=== PATIENT | male | born 1980 | race Caucasian/White ===

== ENCOUNTER → 2016-04-08 | Outpatient (CLI) | payer OTHER ==
[~2016-04-08] MED LIST: CLC100 PO; EFF75 PO; FLX10 PO; LAMO200T38 PO; LEVO50TA6 PO; LINA1CAP PO; LURA1TAB3 PO; LXP10 PO; MDRDP21 PO; METH10CO11 PO; METH40TA PO; METO50TA16 PO; NRN300 PO; NRN600 PO; ONDA-63 PO; SERT1TAB72 PO; TRAZ100T29 PO
[2016-04-08 14:18] LABS: BLOOD UREA NITROGEN 13 mg/dl (7-18)
--- NOTE | 2016-04-16 10:42 | CODING QUERY NO DIAGNOSIS ---
: 1980 TREATMENT RENDERED WITHOUT A DIAGNOSIS To promote full compliance with coding requirements relating to patient care, physician participation is requested in all cases of wellness coach uncertainty. Please assist us with providing a diagnosis/symptom for the test(s) below: A diagnosis/symptom was not documented on your Order. A valid diagnosis/symptom is required to bill all insurances. Please remember that we are unable to code a diagnosis of rule out, probable, possible, questionable, or suspected. Tests that require a diagnosis: * BLOOD UREA NITROGEN DOS: 04/08/16 DIAGNOSIS: * CREATININE DOS: 04/08/16 DIAGNOSIS: Provider Signature: Date: Thank you Teagan Galicia Health Information Management Once completed, please kindly fax back to [phone] For questions please call [phone]
== END | disposition home or self-care (01) ==
LOC: C.LABBC 11:29
PROVIDERS: ATTEND Psychiatry & Neurology Neurology
DX: G31.84 Mild cognitive impairment of uncertain or unknown etiology (principal); I10 Essential (primary) hypertension; N28.9 Disorder of kidney and ureter, unspecified; N04.9 Nephrotic syndrome with unspecified morphologic changes

== ENCOUNTER → 2016-04-09 | Outpatient (CLI) | payer OTHER ==
[~2016-04-09] MED LIST changes: +GADAVIST IV PRN
--- NOTE | 2016-04-09 12:44 | DIAGNOSTIC IMAGING REPORT ---
MRI OF THE BRAIN WITHOUT AND WITH IV CONTRAST CLINICAL HISTORY: MILD NEUROCOGNITIVE DISORDER COMPARISON STUDY: Head CT dated 06/19/2014 TECHNIQUE: MRI of the brain was performed from the vertex to the skull base utilizing various T1 and T2 weighted sequences. Following the IV administration of 9 mL of Gadavist contrast, additional enhanced images were obtained. FINDINGS: Sagittal T1, axial diffusion, proton density and T2 weighted axial, coronal FLAIR, and pre and post axial T1-weighted images were acquired. These were supplemented with post gadolinium coronal T1 weighted images. No intra or extra-axial mass lesions are visualized. Axial diffusion-weighted images reveal no evidence of acute or subacute infarction. There is no evidence of ventricular dilatation. Proton density T2-weighted and FLAIR images reveal no significant intraparenchymal signal abnormalities. There are no abnormal flow voids. There is no evidence of pathologic enhancement. There is mild to moderate mucosal thickening involving the left maxillary sinus. The study is minimally compromised secondary to summation motion IMPRESSION: Mild to moderate mucosal thickening within the left maxillary sinus. Otherwise normal MRI of the brain Electronically signed by: Tc Hardy M.D. 04/09/2016 12:42 PM Dictated Date/Time: 04/09/2016 12:39 PM
== END | disposition home or self-care (01) ==
LOC: C.MRIBC 04-08 10:59
PROVIDERS: ATTEND Psychiatry & Neurology Neurology
DX: G31.84 Mild cognitive impairment of uncertain or unknown etiology (principal); J34.89 Other specified disorders of nose and nasal sinuses

== ENCOUNTER → 2016-08-11 | Outpatient (CLI) | payer OTHER ==
[~2016-08-11] MED LIST changes: -GADAVIST IV PRN; +LACTOSE PO
[2016-08-11 15:45] LABS: ALB/GLOB RATIO 1.1 (0.9-2); ALKALINE PHOSPHATASE 80 U/L (45-117); ALT/SGPT 23 U/L (12-78); AST/SGOT 13 U/L (15-37); BLOOD UREA NITROGEN 10 mg/dl (7-18); BUN/CREATININE RATIO 8.6 (10-20); CALCIUM 9.4 mg/dl (8.5-10.1); CARBON DIOXIDE 25 mmol/L (21-32); CHLORIDE 103 mmol/L (98-107); GLUCOSE 85 mg/dl (70-99); GLUCOSE,FASTING 85 mg/dl (70-99); SODIUM 138 mmol/L (136-145)
[2016-08-11 16:05] LABS: CHOLESTEROL 220 mg/dl (0-200); CHOLESTEROL/HDL RATIO 4.2; HDL CHOLESTEROL 52 mg/dl; LDL CHOLESTEROL CALCULATED 144 mg/dl; TRIGLYCERIDES 120 mg/dl (0-150); VERY LOW DENSITY LIPOPROT CALC 24 mg/dl
== END | disposition home or self-care (01) ==
LOC: C.LAB 12:45
PROVIDERS: ATTEND Psychiatry & Neurology Psychiatry
DX: F31.89 Other bipolar disorder (principal)

== ENCOUNTER 2016-08-23 10:27 | Inpatient (IN) | payer OTHER ==
[~2016-08-23] VITALS: Ht 170.2 cm; Wt 87.7 kg
[~2016-08-23 10:27] MED LIST changes: -CLC100 PO; -FLX10 PO; -LACTOSE PO; -LEVO50TA6 PO; -LINA1CAP PO; -LXP10 PO; -MDRDP21 PO; -METH10CO11 PO; -NRN300 PO; -ONDA-63 PO; -SERT1TAB72 PO
[2016-08-23] MEDS ORDERED: LXP10 PO (10:47)
[2016-08-23] MEDS ORDERED: MDRDP21 PO (10:48)
[2016-08-23] MEDS ORDERED: LEVO50TA6 PO (10:48)
[2016-08-23] MEDS ORDERED: ONDA-63 PO (10:48)
[2016-08-23] MEDS ORDERED: HYDROmorphone INJ 2 MG/ML SYR/VIAL IV STA ×2 (11:00→13:36)
--- NOTE | 2016-08-23 11:01 | EMERGENCY ROOM VISIT NOTE ---
History Report prepared by Mirtha: Radha Mackey Under the Supervision of: Dr. Estrella Romero D.O. First contact with patient: 10:47 Chief Complaint: BACK PAIN Stated Complaint: BACK PAIN History of Present Illness The patient is a 36 year old male who presents to the Emergency Room with complaints of worsening lower back pain beginning 2 weeks prior to arrival. The patient has a history of chronic lower back pain and is treated by pain management. He did call pain management 2 weeks ago when the pain worsened and was scheduled for cortisol shots however due to insurance covering troubles he has not yet received the shots. The patient states that 4 days ago he turned and significantly worsened the pain to be a 10/10 in severity. He has loss strength in both of his legs and is experiencing trouble controlling his bladder. The patient also notes pain to his left testicle. He did start steroids on Tuesday and has not experienced relief of his symptoms, he notes the symptoms continue to worsen. In March 2012 the patient had a MRI of his back done. A broad based disc protrusion at L4-L5 with right greater than left was shown. Left side protrusion at L5-S1. Both of these were compared to MRI from September 2009. 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 The patient also notes pain to his left testicle. Review of Systems See HPI for pertinent positives & negatives. A total of 10 systems reviewed and were otherwise negative. Past Medical & Surgical Medical Problems: (1) Asthma (2) Drug abuse (3) Endocarditis (4) Hernia (5) Hypertension (6) IV drug abuse (7) Line sepsis (8) Mediastinitis (9) Migraine (10) Mitral valve regurgitation (11) Nephrotic syndrome (12) Psoriasis (13) Sternoclavicular separation Surgical Problems: (1) History of open heart surgery Family History Diabetes mellitus FHx: cancer FHx: heart disease Hypertension Kidney disease Kidney stones Seizures Social History Smoking Status: Never Smoker Alcohol Use: none Drug Use: heroin Marital Status: in relationship Housing Status: lives with family Occupation Status: employed Current/Historical Medications Scheduled Escitalopram Oxalate (Escitalopram Oxalate), 10 MG PO DAILY Gabapentin (Gabapentin), 600 MG PO TID Lamotrigine (Lamictal), 200 MG PO DAILY Levothyroxine Sodium (Levothyroxine Sodium), 50 MCG PO DAILY Methadone Hcl (Methadose), 92 MG PO DAILY Methylprednisolone (Methylprednisolone Dose P), 1 DOSE PO DIRECTED Metoprolol Tartrate (Lopressor) (Lopressor), 50 MG PO BID Ondansetron (Ondansetron HCl), 8 MG PO DAILY Miscellaneous Medications Lurasidone Hcl (Latuda), 60 MG PO Allergies Coded Allergies: POLLEN (Verified Allergy, Mild, 08/13/16) Bupropion (Verified Adverse Reaction, Unknown, seizures, 08/13/16) Varenicline (Verified Adverse Reaction, Unknown, SEIZURE, 08/13/16) Physical Exam Vital Signs Date Time Temp Pulse Resp B/P Pulse Ox O2 Delivery O2 Flow Rate FiO2 08/23/16 15:32 98 Room Air 08/23/16 14:29 80 18 135/84 98 Room Air 08/23/16 13:35 76 18 142/92 98 Room Air 08/23/16 12:04 77 16 113/88 97 Room Air 08/23/16 10:36 37.2 84 18 160/110 97 Room Air Physical Exam HEENT: Head - normocephalic and atraumatic Pupils are equal, round, and reactive to light. Extraocular eye muscles are intact, and sclera are anicteric. Nose - moist nasal mucosa without discharge. Mouth - moist buccal mucosa. Oropharynx is nonerythematous and there is no tonsillar exudate or edema noted. Neck: Supple; no JVD, nuchal rigidity, cervical lymphadenopathy. Heart: Tachycardic rate and rhythm. There is a normal S1 and S2 with no murmurs , clicks, or gallops appreciated. Lungs: Clear to auscultation bilaterally with no wheezes, rales, or rhonchi. Abdomen: Soft, completely nontender, nondistended, with good bowel sounds. There are no palpable pulsatile masses or hepatosplenomegaly. There is no guarding, rigidity, or rebound noted. Back: Reproducible to palpation L3-S1, pain over left piriformis muscle, pain through left buttock across left anterior thigh and left testicle. Rectal: Normal tone. Extremities: No evidence of cyanosis, clubbing, or edema. There are easily palpable peripheral pulses. Skin: diaphoretic, warm with good turgor and no rashes. Medical Decision & Procedures ER Provider Diagnostic Interpretation: MRI results as stated below per my review and radiologist interpretation: LUMBAR SPINE MRI HISTORY: Back pain. eval for acute disc herniation with nerve root impingement TECHNIQUE: Multiplanar multisequence MRI of the lumbar spine was performed without the use of contrast. COMPARISON: Lumbar spine MRI 03/14/2012. FINDINGS: For the purpose of the report the L5-S1 disc space will be located on axial image 23 of 25. No fracture or subluxation. Mild disc space narrowing and disc desiccation at L4-L5 and L5-S1, unchanged. The conus terminates at the L2 level. Paraspinal soft tissues are unremarkable. L1-L2: No significant central canal or neural foraminal narrowing. L2-L3: No significant central canal or neural foraminal narrowing. L3-L4: No significant central canal or neural foraminal narrowing. L4-L5: Focal central/right paracentral disc protrusion which is not significantly changed. This abuts but does not displace the transiting right L5 nerve root. There is minimal central canal narrowing. No neural foraminal narrowing. L5-S1: Small left paracentral broadbase disc protrusion which abuts but does not displace the transiting left S1 nerve root. This is similar to the prior study. No significant central canal or neural foraminal narrowing. IMPRESSION: 1. No significant change compared to the prior study. 2. No fracture or subluxation. 3. Small disc protrusions at L4-5 and L5-S1 as described above. Electronically signed by: Pravin Mcelroy M.D. 08/23/2016 1:49 PM Dictated Date/Time: 08/23/2016 1:41 PM Laboratory Results 08/23/16 11:50 Red Blood Count 5.65, Mean Corpuscular Volume 81.9, Mean Corpuscular Hemoglobin 29.6, Mean Corpuscular Hemoglobin Concent 36.1, Mean Platelet Volume 9.2, Neutrophils (%) (Auto) 74.3, Lymphocytes (%) (Auto) 16.2, Monocytes (%) (Auto) 8.9, Eosinophils (%) (Auto) 0.2, Basophils (%) (Auto) 0.1, Neutrophils # (Auto) 8.56, Lymphocytes # (Auto) 1.87, Monocytes # (Auto) 1.02, Eosinophils # (Auto) 0.02, Basophils # (Auto) 0.01 08/23/16 11:50 Test 08/23/16 11:50 White Blood Count 11.51 K/uL (4.8-10.8) Red Blood Count 5.65 M/uL (4.7-6.1) Hemoglobin 16.7 g/dL (14.0-18.0) Hematocrit 46.3 % (42-52) Mean Corpuscular Volume 81.9 fL (80-100) Mean Corpuscular Hemoglobin 29.6 pg (25-34) Mean Corpuscular Hemoglobin Concent 36.1 g/dl (32-36) Platelet Count 228 K/uL (130-400) Mean Platelet Volume 9.2 fL (7.4-10.4) Neutrophils (%) (Auto) 74.3 % Lymphocytes (%) (Auto) 16.2 % Monocytes (%) (Auto) 8.9 % Eosinophils (%) (Auto) 0.2 % Basophils (%) (Auto) 0.1 % Neutrophils # (Auto) 8.56 K/uL (1.4-6.5) Lymphocytes # (Auto) 1.87 K/uL (1.2-3.4) Monocytes # (Auto) 1.02 K/uL (0.11-0.59) Eosinophils # (Auto) 0.02 K/uL (0-0.5) Basophils # (Auto) 0.01 K/uL (0-0.2) RDW Standard Deviation 40.4 fL (36.4-46.3) RDW Coefficient of Variation 13.5 % (11.5-14.5) Immature Granulocyte % (Auto) 0.3 % Immature Granulocyte # (Auto) 0.03 K/uL (0.00-0.02) Erythrocyte Sedimentation Rate 9 mm/hr (0-14) Anion Gap 8.0 mmol/L (3-11) Est Creatinine Clear Calc Drug Dose 89.1 ml/min Estimated GFR () 89.0 Estimated GFR (Non- 76.8 BUN/Creatinine Ratio 13.1 (10-20) Calcium Level 9.0 mg/dl (8.5-10.1) C-Reactive Protein 1.02 mg/dl (0-0.29) Laboratory results per my review. Medications Administered Medications (Trade) Dose Ordered Sig/[facility] Route Start Time Stop Time Status Last Admin Dose Admin Hydromorphone HCl (Dilaudid Inj) 2 mg NOW STAT IV 08/23/16 11:00 08/23/16 11:11 DC 08/23/16 12:01 2 MG Hydromorphone HCl (Dilaudid Inj) 2 mg NOW STAT IV 08/23/16 13:36 08/23/16 13:38 DC 08/23/16 13:59 2 MG Methylprednisolone Sodium Succinate (Solu-Medrol IV) 125 mg NOW STAT IV 08/23/16 14:44 08/23/16 14:45 DC 08/23/16 15:15 125 MG Procedure Dilaudid Inj 2 mg IV, Dilaudid Inj 2 mg IV, Solu-Medrol IV 125 mg IV. ED Course 1051: Past medical records reviewed. The patient was evaluated in room B4. A complete history and physical exam was performed. An IV lock was initiated and labs were drawn as above 1100: Dilaudid Inj 2 mg IV. 1319: The patient is at MRI. 1334: The patient is back from MRI. He is requesting more pain medication. 1336: Dilaudid Inj 2 mg IV. 1423: The patient is still in moderate pain and is unable to walk due to weakness. I reviewed the results of the MRI and laboratory studies with the patient. 1441: Discussed the patient's case with Dr. Mitch SALAMANCA. The patient will be evaluated for further management. 1444: Solu-Medrol IV 125 mg IV. Medical Decision The patient is a 36 year old male who presents to the ED with back pain. Differential diagnosis includes colitis equina syndrome, sciatica, acute disc herniated, lumbar root nerve compression, lumbar radiculopathy. Lab findings include: white blood cell count of 11.5, stable H&H, sed rate of 9 , c reactive protein 1.02, normal renal function and glucose. The patient describes a long-standing history of low back pain. He has had previous episodes of intractable back pain which required admission to the hospital for IV steroid therapy. The patient is unsure whether or not he has ever been seen by one of the spinal surgeons here at the hospital. Despite receiving multiple doses of IV pain medication, the patient is still quite uncomfortable and has difficulty with walking due to weakness in the left lower extremity. I discussed the case with the [facility] Hospitalist and they will evaluate for further management. Consults Time Called: 1440 Consulting Physician: Dr. Meyer - WILMA Returned Call: [phone] Discussed the patient's case. The patient will be evaluated for further management. Impression Primary Impression: Lumbar radiculopathy Scribe Attestation The scribe's documentation has been prepared under my direction and personally reviewed by me in its entirety. I confirm that the note above accurately reflects all work, treatment, procedures, and medical decision making performed by me. Departure Information Dispostion Home / Self-Care Referrals Tao Verma M.D. (PCP)
[2016-08-23 12:22] LABS: BASO % 0.1 %; BASO ABS # 0.01 K/uL (0-0.2); COMPLETE YES; EOS % 0.2 %; HEMATOCRIT 46.3 % (42-52); IG% 0.3 %; LYMPH % 16.2 %; LYMPH ABS # 1.87 K/uL (1.2-3.4); MEAN CELL VOLUME 81.9 fL (80-100); MEAN CORPUSCULAR HEMOGLOBIN 29.6 pg (25-34); MEAN CORPUSCULAR HGB CONC 36.1 g/dl (32-36); MEAN PLATELET VOLUME 9.2 fL (7.4-10.4); MONO % 8.9 %; NEUT % 74.3 %; PLATELET COUNT 228 K/uL (130-400); RED BLOOD COUNT 5.65 M/uL (4.7-6.1); WHITE BLOOD COUNT 11.51 K/uL (4.8-10.8)
[2016-08-23 12:52] LABS: BUN/CREATININE RATIO 13.1 (10-20); C-REACTIVE PROTEIN 1.02 mg/dl (0-0.29); CREATININE 1.2 mg/dl (0.60-1.40); POTASSIUM 3.6 mmol/L (3.5-5.1)
--- NOTE | 2016-08-23 13:50 | DIAGNOSTIC IMAGING REPORT ---
LUMBAR SPINE MRI HISTORY: Back pain. eval for acute disc herniation with nerve root impingement TECHNIQUE: Multiplanar multisequence MRI of the lumbar spine was performed without the use of contrast. COMPARISON: Lumbar spine MRI 03/14/2012. FINDINGS: For the purpose of the report the L5-S1 disc space will be located on axial image 23 of 25. No fracture or subluxation. Mild disc space narrowing and disc desiccation at L4-L5 and L5-S1, unchanged. The conus terminates at the L2 level. Paraspinal soft tissues are unremarkable. L1-L2: No significant central canal or neural foraminal narrowing. L2-L3: No significant central canal or neural foraminal narrowing. L3-L4: No significant central canal or neural foraminal narrowing. L4-L5: Focal central/right paracentral disc protrusion which is not significantly changed. This abuts but does not displace the transiting right L5 nerve root. There is minimal central canal narrowing. No neural foraminal narrowing. L5-S1: Small left paracentral broadbase disc protrusion which abuts but does not displace the transiting left S1 nerve root. This is similar to the prior study. No significant central canal or neural foraminal narrowing. IMPRESSION: 1. No significant change compared to the prior study. 2. No fracture or subluxation. 3. Small disc protrusions at L4-5 and L5-S1 as described above. Electronically signed by: Pravin Mcelroy M.D. 08/23/2016 1:49 PM Dictated Date/Time: 08/23/2016 1:41 PM
[2016-08-23] MEDS ORDERED: METHYLPREDNISOLONE 125 MG VIAL IV STA (14:44)
[2016-08-23 15:32] VITALS: O2SAT 98; Ht 170.2 cm; Wt 87.7 kg
[2016-08-23] MEDS ORDERED: ACETAMINOPHEN 325 MG TAB PO PRN (15:45)
[2016-08-23] MEDS ORDERED: MAGNESIUM HYDROXIDE SUSP 30 ML UDC PO PRN (15:45)
[2016-08-23] MEDS ORDERED: ONDANSETRON INJ 2 MG/ML 2 ML VIAL IV PRN (15:45)
[2016-08-23] MEDS ORDERED: HYDROmorphone INJ 0.5 MG/0.5 ML SYR ONE (16:00)
[2016-08-23] MEDS ORDERED: HYDROmorphone INJ 1 MG/ML SYR IV PRN (16:00)
--- NOTE | 2016-08-23 16:29 | History and Physical ---
History & Physical Date & Time of Service: August 23, 2016 at 15:52 Chief Complaint: Back Pain Primary Care Physician: Tao Verma M.D. History of Present Illness Source: patient 36 y/o M c/o back pain. Pt has had back pain since he was around 19 y/o. Over the last month, it has gotten progressively worse. He [facility] his pain management [facility] about 2 weeks ago. The plan at that time was to have a cortisol injection, however pt's insurance denied this request. PM office has been working to appeal this, however he has not been able to receive the injection due to insurance denial. Pt states his pain was not improving and on AM he rolled over in bed which caused his pain to become instantly more severe. It is more severe than it has ever been. He has also developed L LE weakness and numbness, both of which are new to him. He has had issues walking due to this. He has had no bowel or bladder incontinence, but he does note about 15-20 seconds of urine "dribbling" after he feels he has finished voiding, also new for him. Pt called his PCP on Tuesday after his pain continued and was given a steroid dose pack, which he started on Tuesday. He is on day 3 of this and no relief. Pt states that he did speak to a surgeon at some point at [facility], however a fusion was decided against at that time due to young age and minimal sx. Pt has had flares of his back pain in the past and states that IV steroids have helped after a few days. He does feel that his methadone has helped his back pain in the past. He had some relief with dilaudid, but not much in the ED. Pt has had decreased PO intake due to pain, but no intolerance of PO. Pt denies fever, SOB, chest pain, abd pain, n/v/c/d, LE pain or swelling. ROS as noted above, otherwise neg. Rectal exam from ED physician was neg Past Medical/Surgical History Medical Problems: (1) Asthma Status: Chronic (2) Drug abuse Status: Chronic (3) Endocarditis Status: Resolved (4) Hernia Status: Resolved (5) Hypertension Status: Chronic (6) IV drug abuse Status: Chronic (7) Line sepsis Permanent Comment: Candidemia due to PICC Status: Resolved (8) Mediastinitis Status: Resolved (9) Migraine Status: Chronic (10) Mitral valve regurgitation Status: Chronic (11) Nephrotic syndrome Status: Chronic (12) Psoriasis Status: Chronic (13) Sternoclavicular separation Status: Chronic Surgical Problems: (1) History of open heart surgery Permanent Comment: mitral valve repair [facility] Status: Resolved Mood disorder Family History Diabetes mellitus FHx: cancer FHx: heart disease Hypertension Kidney disease Kidney stones Seizures Social History Smoking Status: Former Smoker Smokeless Tobacco Use: Yes (1 can/day) Alcohol Use: none Drug Use: heroin (hx of heroin, not current), marijuana (1x/week) Marital Status: in relationship Housing status: lives with family Occupational Status: employed Immunizations History of Influenza Vaccine: Yes History of Tetanus Vaccine?: Yes Tetanus Immunization Date: Jun 16, 2011 History of Pneumococcal: Yes History of Hepatitis B Vaccine: Unknown Multi-Drug Resistant Organisms History of MDRO: No Allergies Coded Allergies: POLLEN (Verified Allergy, Mild, 08/13/16) Bupropion (Verified Adverse Reaction, Unknown, seizures, 08/13/16) Varenicline (Verified Adverse Reaction, Unknown, SEIZURE, 08/13/16) Uncoded Allergies: POLLEN (Allergy, Mild, 10/08/14) [id number] (Allergy, Unknown, seizures, 10/08/14) [id number] (Allergy, Unknown, SEIZURE, 10/08/14) Home Medications Scheduled Escitalopram Oxalate (Escitalopram Oxalate), 10 MG PO DAILY Gabapentin (Gabapentin), 600 MG PO TID Lamotrigine (Lamictal), 200 MG PO DAILY Levothyroxine Sodium (Levothyroxine Sodium), 50 MCG PO DAILY Methadone Hcl (Methadose), 92 MG PO DAILY Methylprednisolone (Methylprednisolone Dose P), 1 DOSE PO DIRECTED Metoprolol Tartrate (Lopressor) (Lopressor), 50 MG PO BID Ondansetron (Ondansetron HCl), 8 MG PO DAILY Miscellaneous Medications Lurasidone Hcl (Latuda), 60 MG PO Physical Exam Vital Signs Date Time Temp Pulse Resp B/P Pulse Ox O2 Delivery O2 Flow Rate FiO2 08/23/16 15:32 98 Room Air 08/23/16 14:29 80 18 135/84 98 Room Air 08/23/16 13:35 76 18 142/92 98 Room Air 08/23/16 12:04 77 16 113/88 97 Room Air 08/23/16 10:36 37.2 84 18 160/110 97 Room Air General Appearance: + mild distress (shaky and tearful) Head: normocephalic, atraumatic Respiratory/Chest: normal breath sounds, no respiratory distress Cardiovascular: regular rate, rhythm, no edema Abdomen/GI: non tender, soft Extremities/Musculoskelatal: no calf tenderness, no pedal edema Neurologic/Psych: alert, oriented x 3, + pertinent finding (decreased strength 4/5 in all planes on L LE, able to lift extremities equally unrestricted) Skin: normal color, warm/dry Diagnostics Laboratory Results Results Past 24 Hours Test 08/23/16 11:50 Range/Units White Blood Count 11.51 4.8-10.8 K/uL Red Blood Count 5.65 4.7-6.1 M/uL Hemoglobin 16.7 14.0-18.0 g/dL Hematocrit 46.3 42-52 % Mean Corpuscular Volume 81.9 80-100 fL Mean Corpuscular Hemoglobin 29.6 25-34 pg Mean Corpuscular Hemoglobin Concent 36.1 32-36 g/dl Platelet Count 228 130-400 K/uL Mean Platelet Volume 9.2 7.4-10.4 fL Neutrophils (%) (Auto) 74.3 % Lymphocytes (%) (Auto) 16.2 % Monocytes (%) (Auto) 8.9 % Eosinophils (%) (Auto) 0.2 % Basophils (%) (Auto) 0.1 % Neutrophils # (Auto) 8.56 1.4-6.5 K/uL Lymphocytes # (Auto) 1.87 1.2-3.4 K/uL Monocytes # (Auto) 1.02 0.11-0.59 K/uL Eosinophils # (Auto) 0.02 0-0.5 K/uL Basophils # (Auto) 0.01 0-0.2 K/uL RDW Standard Deviation 40.4 36.4-46.3 fL RDW Coefficient of Variation 13.5 11.5-14.5 % Immature Granulocyte % (Auto) 0.3 % Immature Granulocyte # (Auto) 0.03 0.00-0.02 K/uL Erythrocyte Sedimentation Rate 9 0-14 mm/hr Sodium Level 141 136-145 mmol/L Potassium Level 3.6 3.5-5.1 mmol/L Chloride Level 106 98-107 mmol/L Carbon Dioxide Level 27 21-32 mmol/L Anion Gap 8.0 3-11 mmol/L Blood Urea Nitrogen 16 7-18 mg/dl Creatinine 1.20 0.60-1.40 mg/dl Est Creatinine Clear Calc Drug Dose 89.1 ml/min Estimated GFR () 89.0 Estimated GFR (Non- 76.8 BUN/Creatinine Ratio 13.1 10-20 Random Glucose 80 70-99 mg/dl Calcium Level 9.0 8.5-10.1 mg/dl C-Reactive Protein 1.02 0-0.29 mg/dl Diagnostic Radiology MRI lumbar: 1. No significant change compared to the prior study. 2. No fracture or subluxation. 3. Small disc protrusions at L4-5 and L5-S1 as described above. Impression Assessment and Plan 36 y/o M who was admitted on 08/23 for intractable back pain. Intractable back pain: Hx of same, however now with pain that is worse than any other episode, decreased LLE strength, and dribbling with urination MRI noted as no change since imaging in 2011, small L4-5 bulge noted Neg rectal exam in the ED Pt was to have cortisol injxn as outpt, however this was denied by his insurance Trial of IV decadron as this has helped in the past Ortho c/s pending given new neuro sx Discussed use of acupuncture if no need for urgent surgery Dilaudid PRN, pt aware that he should use sparingly to determine if steroids are being effective Continue methadone Continue gabapentin as at home ESR WNL, CRP with mild elevation at 1.02 Mood disorder: ongoing lamictal and zoloft Pt was just started on zoloft 2 weeks ago HTN: continue home meds Hypothyroid: continue home meds Nicotine use: smokeless tobacco Nicotine patch Advised he cannot use snuff in the hospital Other: Reg diet Ambulation for DVT proph in the setting of likely short admission Level of Care Med/Surg Advanced Directives Existing Living Will: No Existing Power of Structural Welder: No VTE Prophylaxis VTE Risk Assessment Done? Y/N: Yes Risk Level: Low
[2016-08-23 17:00] VITALS: BP 136/93; PULSE 74; TEMP 37.5; O2SAT 99
[2016-08-23] MEDS: DEXAMETHASONE INJ 8 MG in SYRINGE 0 ML IV SCH ×2 (18:43→23:30)
[2016-08-23] MEDS: NICOTINE 21 MG/24 HR TDSY TD SCH (18:43)
[2016-08-23] MEDS: GABAPENTIN 600 MG TAB PO SCH (20:12)
[2016-08-23] MEDS: METOPROLOL TARTRATE 50 MG TAB PO SCH (20:13)
[2016-08-23 23:05] VITALS: BP 115/78; PULSE 63; TEMP 37.1; O2SAT 97
[2016-08-24] MEDS ORDERED: NURSING VERBAL MED ORDER ONE (02:15)
[2016-08-24] MEDS: HYDROmorphone INJ 1 MG/ML SYR IV PRN ×5 (02:30→20:48)
[2016-08-24] MEDS: LEVOTHYROXINE 50 MCG TAB PO SCH (05:55)
[2016-08-24] MEDS: DEXAMETHASONE INJ 8 MG in SYRINGE 0 ML IV SCH ×3 (05:56→17:06)
[2016-08-24 07:43] VITALS: BP 138/82; PULSE 66; TEMP 36.8; O2SAT 99
[2016-08-24 07:47] VITALS: O2SAT 99
[2016-08-24] MEDS: LURASIDONE HCL 40 MG TAB PO SCH (09:17)
[2016-08-24] MEDS: GABAPENTIN 600 MG TAB PO SCH ×2 (09:18→13:39)
[2016-08-24] MEDS: METOPROLOL TARTRATE 50 MG TAB PO SCH ×2 (09:18→21:56)
[2016-08-24] MEDS: ONDANSETRON 8 MG TAB PO SCH (09:18)
[2016-08-24] MEDS: NICOTINE 21 MG/24 HR TDSY TD SCH (09:19)
[2016-08-24] MEDS: METHADONE ORAL SOLN 2 MG/1ML PO SCH (09:21)
--- NOTE | 2016-08-24 12:05 | Hospitalist Progress Note ---
Hospitalist Progress Note Date of Service August 24, 2016. (Karina Sandoval ., PAYogeshC) Subjective Pt evaluation today including: conversation w/ patient, physical exam, chart review, lab review, review of studies, review of inpatient medication list Pain: 5/10 sharp and burning pain in left lumbar area radiating down to LLE PO Intake: Little appetite but tolerates PO diet Voiding: no incontinence, voiding difficulty (reports dribbling urine involunarily after voiding, not really incontinent) Patient reports that he feels the same compared to yesterday on admission. He has just received some Dilaudid, so his pain is currently down to a 5/10 sharp, burning, "electric" pain in his left lower lumbar area that radiates down to his left lower extremity. He states that his pain radiates down his left buttock and posterior thigh, then wraps around to his anterior thigh. He associates numbness/tinging, slight weakness, and burning with the pain. These symptoms do not extend past his knee. His range of motion is limited by the pain which is exacerbated by sitting upright, standing, walking or any pressure applied to the affected area. The patient states that he is fatigued and has not slept much in the last 3 days. He is requesting a sleeping aide. He also has little appetite secondary to pain but is tolerating food when he does eat. He states that he occasionally becomes nauseous when the pain is severe but denies any nausea currently. He denies being incontinent of stool. The patient denies fevers, chills, sweats, chest pain, palpitations, claudication, cough, wheezing, shortness of breath, vomiting, abdominal pain, dysuria, hematuria, urinary retention, paralysis. Additional Comments: See HPI for pertinent positives and negatives. All other systems reviewed and negative. (Karina Sandoval ., PA-C) Objective Vital Signs Date Time Temp Pulse Resp B/P Pulse Ox O2 Delivery O2 Flow Rate FiO2 08/24/16 07:47 99 Room Air 08/24/16 07:47 Room Air 08/24/16 07:43 36.8 66 16 138/82 99 Room Air 08/23/16 23:59 Room Air 08/23/16 23:05 37.1 63 16 115/78 97 Room Air 08/23/16 17:00 37.5 74 20 136/93 99 Room Air 08/23/16 16:40 70 18 98 08/23/16 15:54 70 20 172/98 99 Room Air 08/23/16 15:32 98 Room Air 08/23/16 14:29 80 18 135/84 98 Room Air 08/23/16 13:35 76 18 142/92 98 Room Air 08/23/16 12:04 77 16 113/88 97 Room Air (Karina Sandoval ., PA-C) Physical Exam General Appearance: WD/WN, no apparent distress, + obese Eyes: normal inspection, PERRL, EOMI ENT: normal ENT inspection, hearing grossly normal, pharynx normal Neck: supple, no JVD, trachea midline Respiratory/Chest: lungs clear, normal breath sounds, no respiratory distress Cardiovascular: regular rate, rhythm, no gallop, no murmur Abdomen: normal bowel sounds, non tender, soft Extremities: normal inspection, no pedal edema, no calf tenderness, + pertinent finding (ROM limited in LLE and back secondary to pain. Left lumbar area TTP) Neurologic/Psychiatric: alert, normal mood/affect, oriented x 3, + sensory deficit (decreased sensation left thigh) Skin: normal color, warm/dry, no rash (Karina Sandoval ., PA-C) Laboratory Results Last 24 Hours Test 08/23/16 11:50 08/24/16 11:05 White Blood Count 11.51 K/uL Red Blood Count 5.65 M/uL Hemoglobin 16.7 g/dL Hematocrit 46.3 % Mean Corpuscular Volume 81.9 fL Mean Corpuscular Hemoglobin 29.6 pg Mean Corpuscular Hemoglobin Concent 36.1 g/dl Platelet Count 228 K/uL Mean Platelet Volume 9.2 fL Neutrophils (%) (Auto) 74.3 % Lymphocytes (%) (Auto) 16.2 % Monocytes (%) (Auto) 8.9 % Eosinophils (%) (Auto) 0.2 % Basophils (%) (Auto) 0.1 % Neutrophils # (Auto) 8.56 K/uL Lymphocytes # (Auto) 1.87 K/uL Monocytes # (Auto) 1.02 K/uL Eosinophils # (Auto) 0.02 K/uL Basophils # (Auto) 0.01 K/uL RDW Standard Deviation 40.4 fL RDW Coefficient of Variation 13.5 % Immature Granulocyte % (Auto) 0.3 % Immature Granulocyte # (Auto) 0.03 K/uL Erythrocyte Sedimentation Rate 9 mm/hr Sodium Level 141 mmol/L Potassium Level 3.6 mmol/L Chloride Level 106 mmol/L Carbon Dioxide Level 27 mmol/L Anion Gap 8.0 mmol/L Blood Urea Nitrogen 16 mg/dl Creatinine 1.20 mg/dl Est Creatinine Clear Calc Drug Dose 89.1 ml/min Estimated GFR () 89.0 Estimated GFR (Non- 76.8 BUN/Creatinine Ratio 13.1 Random Glucose 80 mg/dl Calcium Level 9.0 mg/dl C-Reactive Protein 1.02 mg/dl (Karina Sandoval ., ALEXANDRA) Assessment and Plan 36 y/o male with a history of chronic back pain who follows up with [facility] [place] pain management who presents on 08/23 with intractable/worsening back pain, numbness and tingling. Pt has h/o chronic back for last 17 years. He states he had actually been doing well with the pain until 1 month ago when it suddenly started becoming worse again. He follows up with pain management who had tried to give the patient a cortisone shot 3 weeks ago, however, the patient's insurance would not cover this and the patient never received this treatment. The pain became very severe 08/19. He then went to see his PCP who gave him oral steroids which he states has not helped at all. He has developed burning, numbness and tingling in his LLE, which he has never experienced before. Intractable back pain w/radiculopathy--ongoing/stable. Reports no change from yesterday. -Admitted to med/surg -MRI lumbar spine showed small disc protrusion at area of L4-L5 and L5-S1. Otherwise no other changes compared to 2012 study -Continue Decadron 8 mg IV q6h -Dilaudid 1 mg IV q4h prn pain -Ortho consulted, appreciate recs. Pt had been evaluated for surgery in the past but no procedure was done then due to young age and minimal sx (no neuro sx then) -Continue gabapentin 600 mg PO TID -Continue methadone 92 mg PO qd -PT/OT per pt request Mood disorder--stable -Continue Lamictal 200 mg PO qd, Latuda 60 mg PO qd and Zoloft 30 mg PO qd HTN--stable -Continue Lopressor 50 mg PO BID Hypothyroid -Continue Synthroid 50 mcg PO qd Smokeless tobacco use -Nicotine patch DVT prophylaxis -Enoxaparin 40 mg SC q24h -Encourage ambulation Code Status -Level I, FULL RESUSCITATION STATUS (Karina Sandoval, ALEXANDRA) Reviewed: Pt Seen/Exam by Me (Erika Grimes MD) History Physician Collar Feller Supervision Note: I interviewed and examined the patient. Discussed with BLACK Sandoval and agree with findings and plan as documented in the note. Any exceptions or clarifications are listed here: Patient tearful tonight, is very concerned as his leg gave out when he tried to stand with his walker this evening. He has not been seen by orthopedics yet. Vitals reviewed Tearful, no acute distress Alopecia of the head, eyebrows, legs and arms RRR, no MGR Clear to auscultation bilaterally, breathing unlabored Positive bowel sounds soft nontender nondistended Extremities no edema Neuro: 5 out of 5 strength in the right upper extremity, left lower extremity with 4-5 strength hip flexion and knee extension and flexion as well as plantar and dorsiflexion but all strength testing causes pain, sensation intact to light touch throughout lower extremities except decreased in the left lateral thigh, positive straight leg raise on the left, DTR 2+ patellar and Achilles on the right and unable to elicit DTR of the left patella and Achilles the patient was tense 36-year-old male with a history of minimal change disease, alopecia, bipolar disorder, generalized anxiety disorder, 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 Most likely not a surgical case but will await orthopedic input. -Increase gabapentin to 600/600/900 mg -Trial of cyclobenzaprine 10 mg 3 times a day when necessary -Consult pain management -PT/OT consult -Decrease steroids to dexamethasone 8 mg IV every 8 hours -Continue all home psych medications -Watch renal function and history of nephrotic syndrome Documented By: Erika Grimes (Erika Grimes MD)
[2016-08-24 12:08] LABS: HEMATOCRIT 48.6 % (42-52); MEAN CELL VOLUME 81.5 fL (80-100); MEAN CORPUSCULAR HEMOGLOBIN 29.5 pg (25-34); MEAN CORPUSCULAR HGB CONC 36.2 g/dl (32-36); MEAN PLATELET VOLUME 9.5 fL (7.4-10.4); PLATELET COUNT 294 K/uL (130-400); RED BLOOD COUNT 5.96 M/uL (4.7-6.1)
[2016-08-24 12:39] LABS: BLOOD UREA NITROGEN 24 mg/dl (7-18); BUN/CREATININE RATIO 22.2 (10-20); CARBON DIOXIDE 27 mmol/L (21-32); CHLORIDE 105 mmol/L (98-107); GLUCOSE 82 mg/dl (70-99); SODIUM 140 mmol/L (136-145)
[2016-08-24] MEDS: ENOXAPARIN 40 MG/0.4 ML SYR SQ SCH (14:06)
[2016-08-24 14:59] VITALS: BP 120/84; PULSE 61; TEMP 36.6; O2SAT 98
[2016-08-24 16:00] VITALS: O2SAT 98
[2016-08-24] MEDS ORDERED: CYCLOBENZAPRINE HCL 10 MG TAB PO PRN (20:00)
[2016-08-24] MEDS ORDERED: GABAPENTIN 300 MG CAP PO SCH (21:30)
[2016-08-24 22:50] VITALS: BP 122/83; PULSE 64; TEMP 36.8; O2SAT 96
[2016-08-25] MEDS: ZOLPIDEM TARTRATE 5 MG TAB PO PRN (00:13)
[2016-08-25] MEDS: DEXAMETHASONE INJ 8 MG in SYRINGE 0 ML IV SCH ×3 (02:17→17:40)
[2016-08-25] MEDS: LEVOTHYROXINE 50 MCG TAB PO SCH (05:27)
[2016-08-25] MEDS: HYDROmorphone INJ 1 MG/ML SYR IV PRN ×5 (07:23→21:20)
[2016-08-25 07:52] VITALS: BP 100/70; PULSE 65; TEMP 36.7; O2SAT 98
[2016-08-25] MEDS: LURASIDONE HCL 40 MG TAB PO SCH (09:16)
[2016-08-25] MEDS: ONDANSETRON 8 MG TAB PO SCH (09:17)
[2016-08-25 09:20] VITALS: BP 120/77; PULSE 75
[2016-08-25] MEDS: METOPROLOL TARTRATE 50 MG TAB PO SCH ×2 (09:20→20:37)
[2016-08-25] MEDS: ENOXAPARIN 40 MG/0.4 ML SYR SQ SCH (09:22)
[2016-08-25] MEDS: NICOTINE 21 MG/24 HR TDSY TD SCH (09:23)
[2016-08-25] MEDS: SERTRALINE HCL 50 MG TAB PO SCH (10:07)
[2016-08-25 10:15] LABS: HEMATOCRIT 48.1 % (42-52); MEAN CELL VOLUME 82.5 fL (80-100); MEAN CORPUSCULAR HEMOGLOBIN 30.4 pg (25-34); MEAN CORPUSCULAR HGB CONC 36.8 g/dl (32-36); PLATELET COUNT 291 K/uL (130-400); RED BLOOD COUNT 5.83 M/uL (4.7-6.1); WHITE BLOOD COUNT 15.44 K/uL (4.8-10.8)
[2016-08-25 10:17] LABS: BUN/CREATININE RATIO 22.7 (10-20); CALCIUM 8.7 mg/dl (8.5-10.1); CREATININE 1.1 mg/dl (0.60-1.40); POTASSIUM 3.9 mmol/L (3.5-5.1)
[2016-08-25] MEDS: METHADONE ORAL SOLN 2 MG/1ML PO SCH (10:32)
--- NOTE | 2016-08-25 12:16 | Hospitalist Progress Note ---
Hospitalist Progress Note Date of Service August 25, 2016. (Karina Sandoval ., JUSTINC) Subjective Pt evaluation today including: conversation w/ patient, physical exam, chart review, lab review, review of inpatient medication list Pain: 6/10 sharp/burning pain in left lower back/LLE PO Intake: Tolerating PO diet, appetite improved Voiding: no voiding problems (continent of urine but still dribbling afterwards ) Patient states that he does feel slightly improved today. He states that while lying in bed, his pain is much better. He has been able to ambulate in the hallways with a walker, and the pain is less severe while weight bearing compared to yesterday. He states that sitting in the chair exacerbates the pain the most. He currently rates his pain a 6/10 sharp and burning pain, as he just got back from walking and sitting in the chair. The pain is still located in his left lower back with radiation down to his left thigh. The patient does complain of weakness, numbness and tingling in his left thigh that is most apparent while he is walking, although this is also somewhat improved from last night. He states that his appetite is improved today and that he was able to eat well for breakfast this morning. The patient denies fevers, chills , sweats, chest pain, palpitations, claudication, cough, wheezing, shortness of breath, nausea, vomiting, abdominal pain, dysuria, hematuria, urinary retention , and paralysis. Additional Comments: See HPI for pertinent positives and negatives. All other systems reviewed and negative. (Karina Sandoval ., BLACK-C) Objective Vital Signs Date Time Temp Pulse Resp B/P Pulse Ox O2 Delivery O2 Flow Rate FiO2 08/25/16 09:20 75 120/77 08/25/16 07:52 36.7 65 19 100/70 98 Room Air 08/25/16 07:15 Room Air 08/24/16 23:59 Room Air 08/24/16 22:50 36.8 64 18 122/83 96 Room Air 08/24/16 16:00 98 Room Air 08/24/16 14:59 36.6 61 18 120/84 98 Room Air (Karina Sandoval ., BLACK-C) Laboratory Results Last 24 Hours Test 08/24/16 12:51 08/24/16 13:08 5/24/17 09:33 Potassium Level 3.8 mmol/L 3.9 mmol/L Prothrombin Time 11.0 SECONDS Prothromb Time International Ratio 1.0 White Blood Count 15.44 K/uL Red Blood Count 5.83 M/uL Hemoglobin 17.7 g/dL Hematocrit 48.1 % Mean Corpuscular Volume 82.5 fL Mean Corpuscular Hemoglobin 30.4 pg Mean Corpuscular Hemoglobin Concent 36.8 g/dl RDW Standard Deviation 40.7 fL RDW Coefficient of Variation 13.6 % Platelet Count 291 K/uL Mean Platelet Volume 10.0 fL Sodium Level 138 mmol/L Chloride Level 104 mmol/L Carbon Dioxide Level 25 mmol/L Anion Gap 9.0 mmol/L Blood Urea Nitrogen 25 mg/dl Creatinine 1.10 mg/dl Est Creatinine Clear Calc Drug Dose 97.2 ml/min Estimated GFR () 98.9 Estimated GFR (Non- 85.3 BUN/Creatinine Ratio 22.7 Random Glucose 155 mg/dl Calcium Level 8.7 mg/dl (Karina Sandoval ., PA-C) Diagnostic Results General Appearance: WD/WN, no apparent distress, + obese Eyes: normal inspection, PERRL, EOMI ENT: normal ENT inspection, hearing grossly normal, pharynx normal Neck: supple, no JVD, trachea midline Respiratory/Chest: lungs clear, normal breath sounds, no respiratory distress Cardiovascular: regular rate, rhythm, no gallop, no murmur Abdomen: normal bowel sounds, non tender, soft Extremities: normal inspection, no pedal edema, no calf tenderness, + pertinent finding (ROM limited in LLE and back secondary to pain. Left lumbar area TTP. LLE 4/5 strength although somewhat limited by pain) Neurologic/Psychiatric: alert, normal mood/affect, oriented x 3, + sensory deficit (decreased sensation left thigh) Skin: normal color, warm/dry, no rash (Karina Sandoval ., PA-C) Assessment and Plan 36 y/o male with a history of chronic back pain who follows up with [facility] [place] who presents on 08/23 with intractable/worsening back pain, numbness and tingling. Pt has h/o chronic back for last 17 years. He states he had actually been doing well with the pain until 1 month ago when it suddenly started becoming worse again. He follows up with pain management who had tried to give the patient a cortisone shot 3 weeks ago, however, the patient's insurance would not cover this and the patient never received this treatment. The pain became very severe 08/19. He then went to see his PCP who gave him oral steroids which he states has not helped at all. He has developed burning, numbness and tingling in his LLE, which he has never experienced before. Intractable back pain w/radiculopathy--improving -Admitted to med/surg -MRI lumbar spine showed small disc protrusion at area of L4-L5 and L5-S1. Otherwise no other changes compared to 2012 study -Decrease Decadron to 8 mg IV q8h -Dilaudid 1 mg IV q4h prn pain -Ortho consulted, appreciate recs. Pt had been evaluated for surgery in the past but no procedure was done then due to young age and minimal sx (no neuro sx then) -Increase gabapentin to 600/600/900 mg -Trial Flexeril 10 mg PO TID prn spasm -Continue methadone 92 mg PO qd -PT/OT evaluations pending -Pain management consulted. Dr. Gonzalez will do cortisone injection tomorrow morning Mood disorder--stable -Continue Lamictal 200 mg PO qd, Latuda 60 mg PO qd and Zoloft 30 mg PO qd HTN--stable -Continue Lopressor 50 mg PO BID Hypothyroid -Continue Synthroid 50 mcg PO qd Smokeless tobacco use -Nicotine patch DVT prophylaxis -Enoxaparin 40 mg SC q24h -Encourage ambulation Code Status -Level I, FULL RESUSCITATION STATUS (Karina Sandoval PA-C) Reviewed: Pt Seen/Exam by Me (Eirka Grimes MD) History Physician Credit Risk Review Officer Supervision Note: I interviewed and examined the patient. Discussed with BLACK Sandoval and agree with findings and plan as documented in the note. 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 Orthopedics evaluated and deemed not a surgical case. -Increase gabapentin to 900 mg 3 times a day -Patient would like to avoid any further opioids on top of his maintenance methadone -Continue cyclobenzaprine 10 mg 3 times a day when necessary -For steroid injection tomorrow with pain management -PT/OT consult and may need home services -Decrease steroids to dexamethasone 8 mg IV every 12 hours -Continue all home psych medications -Watch renal function and history of nephrotic syndrome -Disposition-patient requesting to not be discharged until Tuesday as there will be no one to help him at home tomorrow and he requires a lot of assistance and is using a walker Documented By: Erika Grimes (Erika Grimes MD)
[2016-08-25] MEDS ORDERED: GABAPENTIN 600 MG TAB PO SCH (14:00)
[2016-08-25 14:57] VITALS: BP 110/68; PULSE 64; TEMP 36.5; O2SAT 95
--- NOTE | 2016-08-25 15:52 | ORTHOPEDIC CONSULTATION ---
DATE OF CONSULTATION: 08/25/2016 DATE OF CONSULTATION: 08/25/2016. HISTORY OF PRESENT ILLNESS: This is a 36-year-old male with chronic low back pain. He reports he has had a flare recently, was seen in the ED and admitted for pain control. He has a longstanding relationship with pain management at [facility], I believe Dr. Gonzalez has seen him. He reports he gets radiation of pain into the thigh, does not go below the knee. He has no numbness or weakness. He denies maik incontinence. MRI was performed while he was admitted and he was noted to have minor disc protrusions at L4-5 and L5-S1 without significant neural compression. Degenerative changes are mild at the affected levels. PAST MEDICAL AND SURGICAL HISTORY: He has extensive past medical and surgical history including history of drug abuse, endocarditis status post mitral valve repair, chronic sternoclavicular joint separation, he has psoriasis nephrotic syndrome, history of mediastinitis, hypertension, asthma. SOCIAL HISTORY: The patient uses snuff, not currently using heroin per his report. ALLERGIES: ALLERGIC TO BUPROPION, VARENICLINE PER THE MED REC LIST. HOME MEDICATIONS: Reviewed in the electronic medical record. He is on 92 mg of methadone daily. PHYSICAL EXAMINATION: The patient is afebrile with normal vital signs. He is comfortable, sitting upright in bed. He has a mildly positive straight leg raise on the left, negative on the right. Nontender hip range of motion with 2+ DTRs at the patella and no sustained clonus in the ankles. He has intact sensation to light touch in both lower extremities and 5/5 motor strength with some mild collapsing weakness. He has full active range of motion in the lower extremities. ASSESSMENT AND PLAN: This is a patient with chronic low back pain with mild degenerative findings on MRI without significant neural compression. He is scheduled for epidural injection with pain management. He is currently being managed by them and can continue to follow up with his pain management physician. Given his medical history, chronic symptoms and lack of any neurologic deficit I do not think he would benefit from any surgical procedure. He needs no further followup with myself. Thank you for the consultation.
[2016-08-25] MEDS ORDERED: BISACODYL 10 MG SUPP PR STA (17:11)
[2016-08-25] MEDS ORDERED: POLYETHYLENE (MIRALAX) 17 GM PACK PO ONE (17:30)
[2016-08-25 20:34] VITALS: BP 133/81; PULSE 80
[2016-08-25] MEDS: DOCUSATE SODIUM 100 MG CAP PO SCH (20:37)
[2016-08-25] MEDS: GABAPENTIN 300 MG CAP PO SCH (20:38)
[2016-08-25 22:55] VITALS: BP 127/84; PULSE 68; TEMP 36.6; O2SAT 96
[2016-08-26] MEDS: ZOLPIDEM TARTRATE 5 MG TAB PO PRN (00:14)
[2016-08-26] MEDS: LEVOTHYROXINE 50 MCG TAB PO SCH (04:41)
[2016-08-26] MEDS: HYDROmorphone INJ 1 MG/ML SYR IV PRN ×4 (04:47→20:02)
[2016-08-26] MEDS: DEXAMETHASONE INJ 8 MG in SYRINGE 0 ML IV SCH (04:47)
[2016-08-26 05:37] LABS: HEMATOCRIT 42.9 % (42-52); MEAN CELL VOLUME 82.3 fL (80-100); MEAN CORPUSCULAR HEMOGLOBIN 29.9 pg (25-34); MEAN CORPUSCULAR HGB CONC 36.4 g/dl (32-36); PLATELET COUNT 226 K/uL (130-400); RED BLOOD COUNT 5.21 M/uL (4.7-6.1); WHITE BLOOD COUNT 13.69 K/uL (4.8-10.8)
[2016-08-26 06:08] LABS: BUN/CREATININE RATIO 23.3 (10-20); CALCIUM 8.4 mg/dl (8.5-10.1); POTASSIUM 4.4 mmol/L (3.5-5.1)
[2016-08-26 07:22] VITALS: BP 109/71; PULSE 69; TEMP 36.6; O2SAT 96
[2016-08-26] MEDS ORDERED: GABAPENTIN 300 MG CAP PO SCH (09:00)
[2016-08-26] MEDS ORDERED: TRIAMCINOLONE ACET 40 MG/ML VIAL ONE (09:17)
[2016-08-26 10:04] VITALS: BP 109/72; PULSE 63; TEMP 37.1; O2SAT 97
[2016-08-26] MEDS: GABAPENTIN 300 MG CAP PO SCH ×3 (10:08→21:15)
[2016-08-26] MEDS: DOCUSATE SODIUM 100 MG CAP PO SCH ×2 (10:08→21:14)
[2016-08-26] MEDS: METHADONE ORAL SOLN 2 MG/1ML PO SCH (10:08)
[2016-08-26] MEDS: ONDANSETRON 8 MG TAB PO SCH (10:09)
[2016-08-26] MEDS: SERTRALINE HCL 50 MG TAB PO SCH (10:09)
[2016-08-26] MEDS: METOPROLOL TARTRATE 50 MG TAB PO SCH ×2 (10:09→21:15)
[2016-08-26] MEDS: LURASIDONE HCL 40 MG TAB PO SCH (10:10)
[2016-08-26] MEDS: POLYETHYLENE (MIRALAX) 17 GM PACK PO SCH (10:11)
[2016-08-26] MEDS: NICOTINE 21 MG/24 HR TDSY TD SCH (10:11)
[2016-08-26] MEDS: ENOXAPARIN 40 MG/0.4 ML SYR SQ SCH (10:11)
--- NOTE | 2016-08-26 10:46 | Pain Clinic Procedure Note ---
Pain Management Procedure Note Procedure Date August 26, 2016. Procedure Description Procedure Time Out: side/site verified, patient ID confirmed, correct procedure Consent Obtained: written Performed By: Dr. Gonzalez Indications: therapeutic Contraindications: none Pre Procedure Vital Signs Date Time Temp Pulse Resp B/P Pulse Ox O2 Delivery O2 Flow Rate FiO2 08/26/16 10:04 37.1 63 15 109/72 97 Room Air 08/26/16 07:22 36.6 69 16 109/71 96 Room Air ASA Class: 3 Description: INTERLAMINAR EPIDURAL STEROID INJECTION Diagnosis: Lumbar radiculitis, intervertebral disc disease Level injected: L5/S1 Surgeon: Dr. Gonzalez Prior to starting, the Patients diagnosis and the procedure were reviewed with the patient in detail. Possible risks, complications and alternative therapies were also reviewed. Patients questions were answered. Informed consent was obtained. Allergies and medication list was reviewed. The patient was brought to the fluoroscopy room and placed in prone position on the table. Immediately prior to starting the procedure, a time out was conducted with the staff and the patient where the patient was identified, proposed procedure was verified, consent was reviewed and the proper site for the planned procedure was identified. Fluoroscopy was utilized in performing the procedure to assist the placement of the needle, to evaluate the final position of the needle prior to injection and to avoid intravascular injection. Monitors used included intermittent blood pressure with automated device, continuous pulse oximetry and level of consciousness. Patient was not given any intravenous sedation and constant verbal contact was maintained throughout the procedure. Biplanar fluoroscopy was used to assist the placement of the needle and to evaluate final needle position prior to injection. Lumbar-sacral area was prepped with DuraPrep and Betadine solution. Sterile drapes were applied. A true AP view of the superior endplate of the S1 vertebra was obtained. Skin and soft tissue over the inferior aspect of the interlaminar laminar notch was infiltrated with 1 mL of 1% Xylocaine using a 25 gauge needle. Midline approach was utilized. A 20 gauge, 3.5 inch Tuohy needle was then inserted through the anesthetized area and advanced under fluoroscopic guidance through the intraspinous ligaments. C-arm was then turned to a true lateral view and the needle was advanced through the ligamentum flavum into the epidural space with [id number] technique with air. Upon entering the epidural space the patient did not experience pain or paresthesia. Bevel of the needle was directed in the cephalad direction. 6 inch micro bore tubing was attached to the needle and aspiration via the needle demonstrated no CSF or blood. In a lateral view, 1cc Isovue 300 contrast was injected via the needle under live fluoroscopy. The contrast was noted to be in the dorsal epidural space. No subarachnoid spread of contrast was noted. Presence of contrast was verified and contralateral oblique view. Finally, an AP view was then checked and additional 1cc of the contrast was injected under live fluoroscopy. Neither subdural or subarachnoid spread nor intravascular uptake was noted on plain fluoroscopy. No vascular uptake was noted on a 10 second run of digital subtraction angiography at rate of 8 fps. Next, 80 mg Kenalog followed by 3cc of preservation free 0.9% saline was injected via the epidural needle gradually. Patient did not experience any pain , paresthesia or discomfort throughout the injection period. Needle was flushed with additional 0.5 ML of saline withdrawn. Adequate hemostasis was noted. A sterile Band-Aid was applied at the injection site. Patient was then placed in sitting position. Patient was monitored for additional 30 minutes in the waiting area and discharged with an accompanying adult. Discharge instructions were reviewed with the Patient. Any specific questions were answered. Patient voiced understanding of the instructions. Follow-up appointment has been scheduled. Complications: none Patient Tolerated Procedure: well Post-procedure Vital Signs: reviewed and stable Discharge Instructions: reviewed & understood [employer] Voice Recognition; This chart was completed in part utilizing [employer] Voice Recognition Software. Random word insertions, pronoun errors, and incomplete sentences are an occasional consequence of this system due to software limitations and ambient noise. Any questions or concerns about the content, text or information contained within the body of this dictation should be directly addressed to the provider for clarification.
[2016-08-26] MEDS ORDERED: GABAPENTIN 600 MG TAB PO SCH (14:00)
[2016-08-26] MEDS ORDERED: ALUMINUM/MAGNESIUM SUSP 30 ML UDC PO ONE (15:34)
[2016-08-26 15:38] VITALS: BP 137/81; PULSE 62; TEMP 36.7; O2SAT 97
--- NOTE | 2016-08-26 15:51 | Hospitalist Progress Note ---
Hospitalist Progress Note Date of Service August 26, 2016. (Karina Sandoval ., BLACK-C) Subjective Pt evaluation today including: conversation w/ patient, physical exam, chart review, lab review, review of inpatient medication list Pain: 3/10 sharp burning L lower back and LLE at rest, 8/10 with movement PO Intake: Tolerating PO diet Voiding: no voiding problems (still dribbling after voiding) Patient reports feeling worse after receiving cortisone injection earlier this morning. He states that his pain is manageable at rest when he is laying on his right side and currently rates it a 3/10 sharp/burning pain laying in bed. The pain is still located in the same area of his left lower back and radiates down the left buttock down to his left thigh. He states that the pain now extends past his knee, when previously it did not. The pain is exacerbated when transferring to and from bed or from sitting to standing position and vice versa. These movements exacerbate pain to a 8/10 sharp pain. He states that walking is about a 5/10. He also states that earlier when getting back into bed he thought he twisted his left leg which elicited worsening pain. His numbness and left leg weakness has remained unchanged. Today the patient also complains of dyspepsia. The patient denies fevers, chills, sweats, chest pain, palpitations, claudication, cough, wheezing, shortness of breath, nausea, vomiting, abdominal pain, dysuria, hematuria, urinary retention, paralysis. Additional Comments: See HPI for pertinent positives and negatives. All other systems reviewed and negative. (Karina Sandoval ., BLACK-C) Objective Vital Signs Date Time Temp Pulse Resp B/P Pulse Ox O2 Delivery O2 Flow Rate FiO2 08/26/16 10:04 37.1 63 15 109/72 97 Room Air 08/26/16 07:58 Room Air 08/26/16 07:22 36.6 69 16 109/71 96 Room Air 08/26/16 00:08 Room Air 08/25/16 22:55 36.6 68 16 127/84 96 Room Air 08/25/16 20:34 80 133/81 (Karina Sandoval ., PA-C) Physical Exam Notes: General Appearance: WD/WN, no apparent distress, + obese Eyes: normal inspection, PERRL, EOMI ENT: normal ENT inspection, hearing grossly normal, pharynx normal Neck: supple, no JVD, trachea midline Respiratory/Chest: lungs clear, normal breath sounds, no respiratory distress Cardiovascular: regular rate, rhythm, no gallop, no murmur Abdomen: normal bowel sounds, non tender, soft Extremities: normal inspection, no pedal edema, no calf tenderness, + pertinent finding (ROM limited in LLE and back secondary to pain. Left lumbar area TTP. LLE 4/5 strength although somewhat limited by pain) Neurologic/Psychiatric: alert, normal mood/affect, oriented x 3, + sensory deficit (decreased sensation left thigh) Skin: normal color, warm/dry, no rash (Karina Sandoval ., PA-C) Laboratory Results Last 24 Hours Test 08/26/16 05:15 White Blood Count 13.69 K/uL Red Blood Count 5.21 M/uL Hemoglobin 15.6 g/dL Hematocrit 42.9 % Mean Corpuscular Volume 82.3 fL Mean Corpuscular Hemoglobin 29.9 pg Mean Corpuscular Hemoglobin Concent 36.4 g/dl RDW Standard Deviation 40.5 fL RDW Coefficient of Variation 13.4 % Platelet Count 226 K/uL Mean Platelet Volume 10.0 fL Sodium Level 140 mmol/L Potassium Level 4.4 mmol/L Chloride Level 107 mmol/L Carbon Dioxide Level 27 mmol/L Anion Gap 6.0 mmol/L Blood Urea Nitrogen 23 mg/dl Creatinine 1.00 mg/dl Est Creatinine Clear Calc Drug Dose 106.9 ml/min Estimated GFR () 110.9 Estimated GFR (Non- 95.7 BUN/Creatinine Ratio 23.3 Random Glucose 105 mg/dl Calcium Level 8.4 mg/dl (Karina Sandoval ., PA-C) Assessment and Plan 36 y/o male with a history of chronic back pain who follows up with [facility] management who presents on 08/23 with intractable/worsening back pain, numbness and tingling. Pt has h/o chronic back for last 17 years. He states he had actually been doing well with the pain until 1 month ago when it suddenly started becoming worse again. He follows up with pain management who had tried to give the patient a cortisone shot 3 weeks ago, however, the patient's insurance would not cover this and the patient never received this treatment. The pain became very severe 08/19. He then went to see his PCP who gave him oral steroids which he states has not helped at all. He has developed burning, numbness and tingling in his LLE, which he has never experienced before. Intractable back pain w/radiculopathy--improving -Admitted to med/surg -MRI lumbar spine showed small disc protrusion at area of L4-L5 and L5-S1. Otherwise no other changes compared to 2012 study -Decadron d/c'd -Dilaudid 1 mg IV q4h prn pain -Ortho consulted, appreciate recs. Pt had been evaluated for surgery in the past but no procedure was done then due to young age and minimal sx (no neuro sx then) -Increase gabapentin to 900 mg PO TID -Trial Flexeril 10 mg PO TID prn spasm -Continue methadone 92 mg PO qd -PT/OT evaluate and treat: PT recommend continuing acute PT services while inpatient. OT states that pt is not safe to return home at his current level of function and would benefit from acute inpatient rehab -Pain management consulted. Cortisone injection done 08/26 Mood disorder--stable -Continue Lamictal 200 mg PO qd, Latuda 60 mg PO qd and Zoloft 30 mg PO qd HTN--stable -Continue Lopressor 50 mg PO BID Hypothyroid -Continue Synthroid 50 mcg PO qd Smokeless tobacco use -Nicotine patch DVT prophylaxis -Enoxaparin 40 mg SC q24h -Encourage ambulation Code Status -Level I, FULL RESUSCITATION STATUS (Karina Sandoval ., ALEXANDRA) Reviewed: Pt Seen/Exam by Me (Erika Grimes MD) History Physician Glass Bead Maker Supervision Note: I interviewed and examined the patient. Discussed with BLACK Sandoval and agree with findings and plan as documented in the note. Any exceptions or clarifications are listed here: Had injection with PM today. Very anxious about if it will help his pain as he is still having pain now and was expecting to be pain free right away after injection. Is very anxious about being bale to get accepted to rehab as he states he will have no one at home to take care of him and he can barely function or move. 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 Orthopedics evaluated and deemed not a surgical case. Received ARMANDO with Pain Management. Still with severe pain. Very anxious -continue gabapentin to 900 mg 3 times a day -plan for dc to Acute Rehab if authorized by insurance Documented By: Erika Grimes (Erika Grimes MD)
[2016-08-26 21:11] VITALS: BP 134/85; PULSE 73
[2016-08-26] MEDS: ALUMINUM/MAGNESIUM SUSP 30 ML UDC PO PRN (21:13)
[2016-08-26 23:30] VITALS: BP 135/89; PULSE 66; TEMP 36.9; O2SAT 98
[2016-08-27] MEDS: HYDROmorphone INJ 1 MG/ML SYR IV PRN ×3 (00:23→11:06)
[2016-08-27] MEDS: ZOLPIDEM TARTRATE 5 MG TAB PO PRN (01:05)
[2016-08-27] MEDS: ALUMINUM/MAGNESIUM SUSP 30 ML UDC PO PRN (01:21)
[2016-08-27] MEDS: LEVOTHYROXINE 50 MCG TAB PO SCH (06:32)
[2016-08-27 07:25] VITALS: BP 119/82; PULSE 62; TEMP 36.5; O2SAT 96
[2016-08-27] MEDS: POLYETHYLENE (MIRALAX) 17 GM PACK PO SCH (08:59)
[2016-08-27] MEDS: DOCUSATE SODIUM 100 MG CAP PO SCH (08:59)
[2016-08-27 09:00] VITALS: BP 136/84; PULSE 69
[2016-08-27] MEDS: METOPROLOL TARTRATE 50 MG TAB PO SCH (09:00)
[2016-08-27] MEDS: NICOTINE 21 MG/24 HR TDSY TD SCH (09:00)
[2016-08-27] MEDS: GABAPENTIN 300 MG CAP PO SCH ×2 (09:01→13:37)
[2016-08-27] MEDS: SERTRALINE HCL 50 MG TAB PO SCH (09:01)
[2016-08-27] MEDS: ONDANSETRON 8 MG TAB PO SCH (09:01)
[2016-08-27] MEDS: LURASIDONE HCL 40 MG TAB PO SCH (09:01)
[2016-08-27] MEDS: METHADONE ORAL SOLN 2 MG/1ML PO SCH (09:02)
[2016-08-27] MEDS: ENOXAPARIN 40 MG/0.4 ML SYR SQ SCH (09:02)
--- NOTE | 2016-08-27 10:02 | Hospitalist Progress Note ---
Hospitalist Progress Note Date of Service August 27, 2016. Subjective Pt evaluation today including: conversation w/ patient, physical exam, chart review, lab review, review of studies, review of inpatient medication list Patient seen and evaluated. Reporting he had worsening pain after injection yesterday that caused radiculopathy pasted the knee which is not normal for his radiculopathy. Reports that he normally just has low back pain but this radiculopathy is new for the past month. He has undergone injections in the past and follows with [facility]. Also had evaluation by Dr. Russo but was not surgical candidate at that time. Reporting some relief with injection but no drastic change. Requests referral for [facility] as concern for ADL compromise. Patient has been on Methadone and goes to the clinic twice weekly for dosing. Constitutional: No chills, No fever Eyes: No worsening of vision Respiratory: No shortness of breath Cardiovascular: No chest pain Abdomen: No constipation, No diarrhea, No nausea, No pain, No vomiting Musculoskeletal: + joint pain (low back pain), No calf pain Male : + problem reported (intermittent prolonged dripping after urinating ) Neurologic: + numbness/tingling (pain and N/T that radiations through L buttocks and travels down lateral aspect of thigh (intermittently diffuse thigh N/T) and stops at the knee), + weakness (LLE 2/2 radiculopathy) Heme: No abnormal bleeding/bruising Skin: No rash Medications Current Inpatient Medications Medications (Trade) Dose Ordered Sig/[place] Route Start Time Stop Time Status Last Admin Dose Admin Acetaminophen (Tylenol Tab) 650 mg Q4H PRN PO 08/23/16 15:45 09/22/16 15:44 Magnesium Hydroxide (Milk Of Magnesia Susp) 30 ml Q6H PRN PO 08/23/16 15:45 09/22/16 15:44 Ondansetron HCl (Zofran Inj) 4 mg Q6H PRN IV 08/23/16 15:45 09/22/16 15:44 Lamotrigine (Lamictal Tab) 200 mg DAILY PO 08/24/16 09:00 09/23/16 08:59 08/27/16 09:01 200 MG Levothyroxine Sodium (Synthroid Tab) 50 mcg DAILYBB PO 08/24/16 06:00 09/23/16 08:59 08/27/16 06:32 50 MCG Metoprolol Tartrate (Lopressor Tab) 50 mg BID PO 08/23/16 21:00 09/22/16 20:59 08/27/16 09:00 50 MG Ondansetron HCl (Zofran Tab) 8 mg DAILY PO 08/24/16 09:00 09/23/16 08:59 08/27/16 09:01 8 MG Methadone HCl (Methadone HCl) 92 mg DAILY PO 08/24/16 09:00 09/23/16 08:59 08/27/16 09:02 92 MG Lurasidone HCl (Latuda Tab) 60 mg DAILY PO 08/24/16 09:00 09/23/16 08:59 08/27/16 09:01 60 MG Sertraline HCl (Zoloft Tab) 25 mg QAM PO 08/25/16 09:00 09/24/16 08:59 08/27/16 09:01 25 MG Nicotine (Nicoderm Cq 21MG Patch) 1 patch QAM TD 08/24/16 09:00 09/23/16 08:59 08/27/16 09:00 1 PATCH Miscellaneous (Remove Nicoderm Patch) 1 ea HS N/A 08/23/16 21:00 09/22/16 20:59 08/26/16 21:13 1 EA Hydromorphone HCl (Dilaudid Inj) 1 mg Q4H PRN IV 08/24/16 02:15 09/07/16 02:14 08/27/16 06:32 1 MG Enoxaparin Sodium (Lovenox Inj) 40 mg DAILY SQ 08/24/16 14:00 09/23/16 13:59 08/27/16 09:02 40 MG Zolpidem Tartrate (Ambien Tab) 5 mg HS PRN PO 08/24/16 15:00 09/23/16 14:59 08/27/16 01:05 5 MG Cyclobenzaprine HCl (Flexeril Tab) 10 mg TID PRN PO 08/24/16 20:00 09/23/16 19:59 08/24/16 23:08 10 MG Polyethylene (Miralax Powder Packet) 17 gm DAILY PO 08/26/16 09:00 09/25/16 08:59 08/26/16 10:11 17 GM Docusate Sodium (coLACE CAP) 100 mg BID PO 08/25/16 21:00 09/24/16 20:59 08/26/16 21:14 100 MG Gabapentin (Neurontin Cap) 900 mg TID PO 08/25/16 21:00 09/24/16 20:59 08/27/16 09:01 900 MG Al Hydroxide/Mg Hydroxide (Maalox Susp) 15 ml Q4H PRN PO 08/26/16 15:45 09/25/16 15:44 08/27/16 01:21 15 ML Objective Vital Signs Date Time Temp Pulse Resp B/P Pulse Ox O2 Delivery O2 Flow Rate FiO2 08/27/16 09:00 69 136/84 08/27/16 07:25 36.5 62 17 119/82 96 Room Air 08/27/16 00:11 Room Air 08/26/16 23:30 36.9 66 18 135/89 98 Room Air 08/26/16 21:11 73 134/85 08/26/16 15:38 36.7 62 18 137/81 97 Room Air 08/26/16 15:25 Room Air 08/26/16 10:04 37.1 63 15 109/72 97 Room Air Physical Exam General Appearance: WD/WN, no apparent distress, + pertinent finding (alopecia - head, arms, legs) Eyes: sclerae normal ENT: hearing grossly normal Neck: supple, no JVD, trachea midline Respiratory/Chest: lungs clear, normal breath sounds, no respiratory distress, no accessory muscle use Cardiovascular: regular rate, rhythm, no gallop, no murmur Abdomen: normal bowel sounds, non tender, soft Extremities: no pedal edema, no calf tenderness Neurologic/Psychiatric: alert, oriented x 3, + motor weakness (LLE 3/5 today as limited by pain), + sensory deficit (LLE thigh stopping at knee) Skin: normal color, warm/dry Assessment and Plan 36 y/o male with a history of chronic back pain who follows up with [facility] [place] management who presents on 08/23 with intractable/worsening back pain, numbness and tingling. Pt has h/o chronic back for last 17 years. He states he had actually been doing well with the pain until 1 month ago when it suddenly started becoming worse again. He follows up with pain management who had tried to give the patient a cortisone shot 3 weeks ago, however, the patient's insurance would not cover this and the patient never received this treatment. The pain became very severe 08/11. He then went to see his PCP who gave him oral steroids which he states has not helped at all. He has developed burning, numbness and tingling in his LLE, which he has never experienced before. Intractable Back Pain w/ Radiculopathy S/P Cortisone Injection 08/26: IMPROVING -MRI Lumbar Spine - image and report reviewed - small disc protrusion at area of L4-L5 and L5-S1. Otherwise no other changes compared to 2012 study -Dilaudid 1 mg IV q4h prn pain -Ortho consulted, appreciate recs. Pt had been evaluated for surgery in the past but no procedure was done then due to young age and minimal sx (no neuro sx then) -Increase gabapentin to 900 mg PO TID -Trial Flexeril 10 mg PO TID prn spasm -Gabapentin 900 mg TID -Methadone 92 mg PO qd -Pain management consulted - injection given Mood Disorder: STABLE -Lamictal 200 mg daily, Latuda 60 mg daily, and Zoloft 30 mg daily HTN: STABLE -Lopressor 50 mg PO BID Hypothyroid: STABLE -Synthroid 50 mcg PO qd Smokeless Tobacco Use: Encouraged Cessation -Nicotine patch DVT prophylaxis: -Enoxaparin 40 mg SC daily -Encourage ambulation Code Status: -Level I, FULL RESUSCITATION STATUS Disposition: -Request for [facility] - will need approval for methadone
--- NOTE | 2016-08-27 11:05 | Pain Management Consultation ---
Pain Management Consultation Date of Consultation August 25, 2016. Reason for Consultation Evaluate for epidural steroid injection. History José Miguel Flores is a 36-year-old male admitted to [facility] with complaint of experiencing low back pain and left lower extremity radicular pain. He is well known to [facility] pain management clinic where he has been receiving epidural steroid injections for his radicular pain. He has a history of disc herniation in the past as well as other comorbid conditions include opiate dependence, anxiety/depression and appears history of endocarditis. He presents to the hospital complains of experiencing his typical radicular pain which had been treated fairly well with previous epidural steroid injections with good efficacy. He denies any new trauma or injury this time. Reports his pain to be the same distribution and of same character as previously. He rates his pain currently at 8/10 when severe and 6/10 when minimal. Pain occurs with weightbearing and with any movement of the left lower extremity. He denies any bowel bladder incontinence, saddle anesthesia, motor weakness or any sensory deficits in left lower extremity. Currently, he is being treated with hydromorphone intravenously as well as maintenance of his methadone dose for dependency. Past Medical/Surgical History (1) Hypertension (2) Asthma (3) Drug abuse (4) Nephrotic syndrome (5) Psoriasis (6) Mitral valve regurgitation (7) Sternoclavicular separation (8) Endocarditis (9) IV drug abuse (10) History of open heart surgery Family History Diabetes mellitus FHx: cancer FHx: heart disease Hypertension Kidney disease Kidney stones Seizures Family Hx Review: history personally reviewed by me Social / Work History Smokeless Tobacco Use: Yes (1 can/day) Alcohol Use: none Marital Status: in relationship Housing Status: lives with family Occupation: employed Allergies Coded Allergies: POLLEN (Verified Allergy, Mild, 08/13/16) Bupropion (Verified Adverse Reaction, Unknown, seizures, 08/13/16) Varenicline (Verified Adverse Reaction, Unknown, SEIZURE, 08/13/16) Medications Current Inpatient Medications Medications (Trade) Dose Ordered Sig/[place] Route Start Time Stop Time Status Last Admin Dose Admin Acetaminophen (Tylenol Tab) 650 mg Q4H PRN PO 08/23/16 15:45 09/22/16 15:44 Magnesium Hydroxide (Milk Of Magnesia Susp) 30 ml Q6H PRN PO 08/23/16 15:45 09/22/16 15:44 Ondansetron HCl (Zofran Inj) 4 mg Q6H PRN IV 08/23/16 15:45 09/22/16 15:44 Lamotrigine (Lamictal Tab) 200 mg DAILY PO 08/24/16 09:00 09/23/16 08:59 08/26/16 10:10 200 MG Levothyroxine Sodium (Synthroid Tab) 50 mcg DAILYBB PO 08/24/16 06:00 09/23/16 08:59 08/25/16 05:27 50 MCG Metoprolol Tartrate (Lopressor Tab) 50 mg BID PO 08/23/16 21:00 09/22/16 20:59 08/26/16 10:09 50 MG Ondansetron HCl (Zofran Tab) 8 mg DAILY PO 08/24/16 09:00 09/23/16 08:59 08/26/16 10:09 8 MG Methadone HCl (Methadone HCl) 92 mg DAILY PO 08/24/16 09:00 09/23/16 08:59 08/26/16 10:08 92 MG Lurasidone HCl (Latuda Tab) 60 mg DAILY PO 08/24/16 09:00 09/23/16 08:59 08/26/16 10:10 60 MG Sertraline HCl (Zoloft Tab) 25 mg QAM PO 08/25/16 09:00 09/24/16 08:59 08/26/16 10:09 25 MG Nicotine (Nicoderm Cq 21MG Patch) 1 patch QAM TD 08/24/16 09:00 09/23/16 08:59 08/26/16 10:11 1 PATCH Miscellaneous (Remove Nicoderm Patch) 1 ea HS N/A 08/23/16 21:00 09/22/16 20:59 08/25/16 19:02 1 EA Hydromorphone HCl (Dilaudid Inj) 1 mg Q4H PRN IV 08/24/16 02:15 09/07/16 02:14 08/26/16 04:47 1 MG Enoxaparin Sodium (Lovenox Inj) 40 mg DAILY SQ 08/24/16 14:00 09/23/16 13:59 08/26/16 10:11 40 MG Zolpidem Tartrate (Ambien Tab) mg HS PRN PO 08/24/16 15:00 09/23/16 14:59 08/26/16 00:14 5 MG Cyclobenzaprine HCl (Flexeril Tab) 10 mg TID PRN PO 08/24/16 20:00 09/23/16 19:59 08/24/16 23:08 10 MG Polyethylene (Miralax Powder Packet) 17 gm DAILY PO 08/26/16 09:00 09/25/16 08:59 08/26/16 10:11 17 GM Docusate Sodium (coLACE CAP) 100 mg BID PO 08/25/16 21:00 09/24/16 20:59 08/26/16 10:08 100 MG Gabapentin (Neurontin Cap) 900 mg TID PO 08/25/16 21:00 09/24/16 20:59 08/26/16 10:08 900 MG Review of Systems Denies any recent history of fever, night sweats, unexplained weight loss, or constitutional symptoms. Otherwise, 8 point review of system has been reported to be negative. Physical Exam Height & Weight: Height 5 feet, 7.00 inches. Weight 87.700 (Kilograms) 193 (Pounds) Last Vital Signs Documentation Date Time Temp Pulse Resp B/P Pulse Ox O2 Delivery O2 Flow Rate FiO2 08/26/16 10:04 37.1 63 15 109/72 97 Room Air Exam: José Miguel is alert and oriented. Mood and affect are appropriate. Short-term and long-term memory is intact. Sensorium is clear. Inspection of the lumbar spine demonstrates normal curvatures. No lesions are noted in the lumbar spine region. Provocative testing of the facet joints is negative. Provocative testing of the sacroiliac joints bilaterally including 5 provocative tests is negative. Diffuse myofascial tenderness or trigger points identifiable in the paraspinous musculature. Neurologically, straight leg raising is strongly positive on the left side at 15 with back and leg pain on the left side with Achilles stretch. Straight leg raising is negative on the right side past 90 and no changes noted Achilles stretch. Sensation and motor strength in the lower extremity are symmetrical without deficit. No pathologic reflexes are noted in the lower extremities. Gait is not tested. Patellar Reflex L +2 R +2 Achilles Reflex L +2 R +2 Laboratory Laboratory Results (Last CBC): 08/26/16 05:15 Imaging MRI: non enhanced, reports reviewed, images reviewed MRI Findings L4-L5 and L5-S1 disc protrusions. Past Records Previous Records: personally reviewed by me Current admission EMR was reviewed Assessment 1. L4-L5 and L5-S1 disc herniation with left leg radicular pain. 2. History of opiate dependence. 3. Multiple comorbid medical and psychosocial conditions. Recommendations 1. Recommend interlaminar L5/S1 epidural steroid injection. Inherent risks the procedure, expected benefits, alternatives, as well as realistic expectations were discussed with the patient. Hia questions were answered to his satisfaction. [employer] Voice Recognition This chart was completed in part utilizing [employer] Voice Recognition Software. Random word insertions, pronoun errors, and incomplete sentences are an occasional consequence of this system due to software limitations and ambient noise. Any questions or concerns about the content, text or information contained within the body of this dictation should be directly addressed to the provider for clarification.
[2016-08-27] MEDS ORDERED: SERT1TAB72 PO (11:45)
[2016-08-27] MEDS ORDERED: NRN300 PO (11:49)
[2016-08-27] MEDS ORDERED: FLX10 PO (11:49)
[2016-08-27] MEDS ORDERED: CLC100 PO (11:49)
--- NOTE | 2016-08-27 11:55 | Discharge Instructions ---
Discharge Instructions Date of Service August 27, 2016. Admission Reason for Admission: Lumbar Radiculopathy Discharge Discharge Diagnosis / Problem: Lumbar Radiculopathy Discharge Goals Goal(s): Decrease discomfort, Improve function, Increase independence Activity Recommendations Activity Limitations: as noted below Lifting Limitations: gradually increase as tolerated Exercise/Sports Limitations: gradually increase as tolerated . Instructions / Follow-Up Instructions / Follow-Up Intractable Back Pain w/ Radiculopathy S/P Cortisone Injection 08/26 - Your gabapentin was increased and a prescription was provided. This medication will help with nerve pain related to your back - You also received an injection. This will take some time to start giving relief. - You will also be provided a prescription for Flexeril to use three times a day which helps with muscle spasms - You will also be provided a prescription for a walker and cane to help with ambulation and will be set up with home health services Follow-Up: - Please follow-up with the Methadone clinic as previously established - will provide list of medications given in hospitals - Follow-up with Dr. Gonzalez in 3 weeks - Follow-up with your family doctor, Dr. Verma, in 7-10 days Current Hospital Diet Patient's current hospital diet: AHA Diet (Heart Healthy) Discharge Diet Recommended Diet: AHA Diet (Heart Healthy) Pending Studies Studies pending at discharge: no Laboratory Results Lipid Panel Test 08/11/16 12:50 Range/Units Triglycerides Level 120 0-150 mg/dl Cholesterol Level 220 H 0-200 mg/dl HDL Cholesterol 52 mg/dl Cholesterol/HDL Ratio 4.2 LDL Cholesterol, Calculated 144 mg/dl Medical Emergencies . Who to Call and When: Medical Emergencies: If at any time you feel your situation is an emergency, please call 911 immediately. . Non-Emergent Contact Non-Emergency issues call your: Primary Care Provider Call Non-Emergent contact if: you have a fever, your pain is concerning you, you have any medication questions . . "Provider Documentation" section prepared by Crystal Sanchez. . VTE Core Measure Inpt VTE Proph given/why not?: Enoxaparin (Lovenox)SQ
[2016-08-27 12:29] VITALS: BP 136/84; PULSE 69; TEMP 36.5; O2SAT 96
--- NOTE | 2016-08-27 16:37 | Discharge Summary ---
Discharge Summary Date of Service August 27, 2016. (Crystal Sanchez PA-C) Discharge Summary Admission Date: August 23, 2016 at 15:50 Discharge Date: August 27, 2016 Discharge Disposition: Home with services Principal Diagnosis: Lumbar Radiculopathy Problems/Secondary Diagnoses: 1. Endocarditis S/P Mitral Valve Repair 2. IVDU currently on Methadone 3. Mood Disorder Immunizations: Have You Had Influenza Vaccine: Yes History of Tetanus Vaccine?: Yes Tetanus Immunization Date: Jun 16, 2011 History of Pneumococcal: Yes History of Hepatitis B Vaccine: Unknown Procedures: 1. LUMBAR SPINE MRI FINDINGS: For the purpose of the report the L5-S1 disc space will be located on axial image 23 of 25. No fracture or subluxation. Mild disc space narrowing and disc desiccation at L4-L5 and L5-S1, unchanged. The conus terminates at the L2 level. Paraspinal soft tissues are unremarkable. L1-L2: No significant central canal or neural foraminal narrowing. L2-L3: No significant central canal or neural foraminal narrowing. L3-L4: No significant central canal or neural foraminal narrowing. L4-L5: Focal central/right paracentral disc protrusion which is not significantly changed. This abuts but does not displace the transiting right L5 nerve root. There is minimal central canal narrowing. No neural foraminal narrowing. L5-S1: Small left paracentral broadbase disc protrusion which abuts but does not displace the transiting left S1 nerve root. This is similar to the prior study. No significant central canal or neural foraminal narrowing. IMPRESSION: 1. No significant change compared to the prior study. 2. No fracture or subluxation. 3. Small disc protrusions at L4-5 and L5-S1 as described above. Consultations: 1. Orthopedic Surgery 2. Pain Management 3. PT/OT (Crystal Sanchez PA-C) Problems/Secondary Diagnoses: HTN Generalized anxiety disorder Alopecia totalis Minimal change disease (Erika Grimes MD) Medication Reconciliation New Medications: Cyclobenzaprine HCl (Cyclobenzaprine HCl) 10 Mg Tab 10 MG PO TID PRN for muscle spasm, #30 TAB Docusate Sodium (Docusate Sodium) 100 Mg Cap 100 MG PO BID for 30 Days, #60 CAP Gabapentin (Gabapentin) 300 Mg Cap 900 MG PO TID for 30 Days, #270 CAP Continued Medications: Lamotrigine (Lamictal) 200 Mg Tab 200 MG PO DAILY Levothyroxine Sodium (Levothyroxine Sodium) 50 Mcg Tab 50 MCG PO DAILY, #30 Lurasidone Hcl (Latuda) 60 Mg Tab 60 MG PO Methadone Hcl (Methadose) 40 Mg Tab 92 MG PO DAILY Metoprolol Tartrate (Lopressor) (Lopressor) 50 Mg Tab 50 MG PO BID Ondansetron (Ondansetron HCl) 8 Mg Tab 8 MG PO DAILY, #30 Sertraline Hcl (Zoloft) 25 Mg Tab 25 MG PO DAILY, TAB Discontinued Medications: Gabapentin (Gabapentin) 600 Mg Tab 600 MG PO TID Methylprednisolone (Methylprednisolone Dose P) 1 Pkt Tab 1 DOSE PO DIRECTED DAY 3 OF TAPERED DOSE Discharge Exam REVIEW OF SYSTEMS: Constitutional: No chills, No fever Eyes: No worsening of vision Respiratory: No shortness of breath Cardiovascular: No chest pain Abdomen: No constipation, No diarrhea, No nausea, No pain, No vomiting Musculoskeletal: + joint pain (low back pain), No calf pain Male : + problem reported (intermittent prolonged dripping after urinating ) Neurologic: + numbness/tingling (pain and N/T that radiations through L buttocks and travels down lateral aspect of thigh (intermittently diffuse thigh N/T) and stops at the knee), + weakness (LLE 2/2 radiculopathy) Heme: No abnormal bleeding/bruising Skin: No rash PHYSICAL EXAM: General Appearance: WD/WN, no apparent distress, + pertinent finding (alopecia - head, arms, legs) Eyes: sclerae normal ENT: hearing grossly normal Neck: supple, no JVD, trachea midline Respiratory/Chest: lungs clear, normal breath sounds, no respiratory distress, no accessory muscle use Cardiovascular: regular rate, rhythm, no gallop, no murmur Abdomen: normal bowel sounds, non tender, soft Extremities: no pedal edema, no calf tenderness Neurologic/Psychiatric: alert, oriented x 3, + motor weakness (LLE 3/5 today as limited by pain), + sensory deficit (LLE thigh stopping at knee) Skin: normal color, warm/dry (Crystal Sanchez, ALEXANDRA) Hospital Course ADMISSION: 36 y/o M c/o back pain. Pt has had back pain since he was around 19 y/o. Over the last month, it has gotten progressively worse. He saw his pain management doctor with [facility] about 2 weeks ago. The plan at that time was to have a cortisol injection, however pt's insurance denied this request. PM office has been working to appeal this, however he has not been able to receive the injection due to insurance denial. Pt states his pain was not improving and on AM he rolled over in bed which caused his pain to become instantly more severe. It is more severe than it has ever been. He has also developed L LE weakness and numbness, both of which are new to him. He has had issues walking due to this. He has had no bowel or bladder incontinence, but he does note about 15-20 seconds of urine "dribbling" after he feels he has finished voiding, also new for him. Pt called his PCP on Tuesday after his pain continued and was given a steroid dose pack, which he started on Tuesday. He is on day 3 of this and no relief. Pt states that he did speak to a surgeon at some point at [facility], however a fusion was decided against at that time due to young age and minimal sx. Pt has had flares of his back pain in the past and states that IV steroids have helped after a few days. He does feel that his methadone has helped his back pain in the past. He had some relief with dilaudid, but not much in the ED.Pt has had decreased PO intake due to pain , but no intolerance of PO. Pt denies fever, SOB, chest pain, abd pain, n/v/c/d , LE pain or swelling. ROS as noted above, otherwise neg. Rectal exam from ED physician was neg HOSPITAL COURSE: Mr. Flores was admitted for acute exacerbation of chronic lumbar back pain with L sided radiculopathy and ambulatory dysfunction. He received pain medication and IV steroids with some relief but no drastic improvements per patient report. He was evaluated by spinal surgery that did not recommend surgical intervention at this time. He was seen by pain management and received a cortisone injection of 08/26. Per patient, this injection initially increased his L radiculopathy and caused this pain to radiate passed his knee which is not usual for him. On day of discharge the pain is slightly improved and does not pass the knee. Pain originates in the low back, radiated through the L buttocks, travels down the lateral aspect of thigh, and ceases at the knee. PT/OT evaluations performed. He performed well with PT and did not qualify for acute rehab stay. He was initiated with home health services. An Rx given for a walker and cane to assist with ambulation. His gabapentin was increased: Gabapentin 900 mg TID. He was initiated on a Flexeril trail with Flexeril 10 mg TID for spasm with 30 pills given. Discussed with patient that no opioids would be prescribed and he is in agreement. He was supplied a list of medications received in hospital to present to Methadone clinic. A DMV application for temporary handicap tag given to patient. He was instructed to follow-up with Pain Management in 3 weeks and PCP in 7-10 days. Total Time Spent: Greater than 30 minutes This includes examination of the patient, discharge planning, medication reconciliation, and communication with other providers. (Crystal Sanchez PA-C) Discharge Instructions Please refer to the electronic Patient Visit Report (Discharge Instructions) for additional information. (Crystal Sanchez PA-C) Additional Copies To Tao Verma M.D. Reviewed: Pt Seen/Exam by Me (Erika Grimes MD) History Physician Co[place] Winder Supervision Note: I interviewed and examined the patient. Discussed with BLACK Sandoval and agree with findings and plan as documented in the note. Any exceptions or clarifications are listed here: Pt feeling a bit better today with pain, but still quite anxious about going home. Was able to walk 500 feet with walker during PT eval today so does not meet criteria to go to SNF or acute rehab for which he is disappointed. He fears not being able to complete ADLs at home. We have arranged for home health evaluation. 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 Orthopedics evaluated and deemed not a surgical case. Received ARMANDO with Pain Management with some relief so far -continue increased dose of gabapentin and flexeril prn, methadone -home PT/OT evals -f/u Pain Man and PCP -stable for dc to home Documented By: Erika Grimes (Erika Grimes MD)
[2016-08-28] MEDS ORDERED: [UNRECOGNIZED DRUG - REMARK] SCH (09:00)
[2016-11-05] MEDS ORDERED: LINA1CAP PO (09:12)
[2017-02-11] MEDS ORDERED: LACTOSE PO (08:13)
== END 2016-08-27 15:25 | disposition home health service (06) | DRG 552 ==
LOC: ENRESERVDT → ENRESERVTM → EDBD 10:27 → C.EDB 10:28 → C.3E 15:50 → EDBEDREQSVC 16:14 → EDBEDREQ 16:14
PROVIDERS: ADMIT Family Medicine; ATTEND Family Medicine
PROC: 3E0R3BZ Introduction of Anesthetic Agent into Spinal Canal, Percutaneous Approach (ICD-10-PCS; principal; 2016-08-26)
PROC: 3E0R33Z Introduction of Anti-inflammatory into Spinal Canal, Percutaneous Approach (ICD-10-PCS; principal; 2016-08-26)
DX: M51.16 Intervertebral disc disorders with radiculopathy, lumbar region (principal); G43.909 Migraine, unspecified, not intractable, without status migrainosus; L40.9 Psoriasis, unspecified; F39 Unspecified mood [affective] disorder; E66.9 Obesity, unspecified; Z68.30 Body mass index [BMI] 30.0-30.9, adult; J45.909 Unspecified asthma, uncomplicated; I10 Essential (primary) hypertension; R26.9 Unspecified abnormalities of gait and mobility; E03.9 Hypothyroidism, unspecified; G89.29 Other chronic pain; F17.220 Nicotine dependence, chewing tobacco, uncomplicated; L65.9 Nonscarring hair loss, unspecified; F41.1 Generalized anxiety disorder; F31.9 Bipolar disorder, unspecified; Z79.899 Other long term (current) drug therapy; Z91.048 Other nonmedicinal substance allergy status; Z88.8 Allergy status to other drugs, medicaments and biological substances; Z83.3 Family history of diabetes mellitus; Z80.9 Family history of malignant neoplasm, unspecified; Z82.49 Family history of ischemic heart disease and other diseases of the circulatory system; Z84.1 Family history of disorders of kidney and ureter; Z82.0 Family history of epilepsy and other diseases of the nervous system

== ENCOUNTER → 2016-11-05 | Outpatient (CLI) | payer OTHER ==
[~2016-11-05] MED LIST changes: +CLC100 PO; -EFF75 PO; +FLX10 PO; +LEVO50TA6 PO; +LINA1CAP PO; +NRN300 PO; -NRN600 PO; +ONDA-63 PO; +SERT1TAB72 PO; -TRAZ100T29 PO
--- NOTE | 2016-11-24 17:17 | CODING QUERY NO DIAGNOSIS ---
TREATMENT RENDERED WITHOUT A DIAGNOSIS To promote full compliance with coding requirements relating to patient care, physician participation is requested in all cases of town planner uncertainty. Please assist us with providing a diagnosis/symptom for the test(s) below: A diagnosis/symptom was not documented on your Order. A valid diagnosis/symptom is required to bill all insurances. Please remember that we are unable to code a diagnosis of rule out, probable, possible, questionable, or suspected. Tests that require a diagnosis: * HEPATITIS B SURFACE ANTIGEN DIAGNOSIS: * HEPATITIS C IGG DIAGNOSIS: * HEPATITIS A VIRUS IgM DIAGNOSIS: * HEPATITIS B CORE IgM DIAGNOSIS: Provider Signature: Date: Thank you Daysi [employer]ly [employer] Information Management Once completed, please kindly fax back to [phone] For questions please call [phone]
== END | disposition home or self-care (01) ==
LOC: C.LAB1850 10:11
PROVIDERS: ATTEND Emergency Medicine Emergency Medical Services
DX: F11.20 Opioid dependence, uncomplicated (principal)

== ENCOUNTER → 2016-12-01 | Outpatient (CLI) | payer OTHER | END | disposition home or self-care (01) | LOC: C.RDSM 15:20 | PROVIDERS: ATTEND Family Medicine Sports Medicine | DX: M25.562 Pain in left knee (principal) ==

== ENCOUNTER → 2017-03-16 | Outpatient (CLI) | payer OTHER ==
[~2017-03-16] MED LIST changes: -CLC100 PO; -FLX10 PO; +LACTOSE PO; +LAMO200T35 PO; -LAMO200T38 PO; -LINA1CAP PO
--- NOTE | 2017-03-16 15:53 | DIAGNOSTIC IMAGING REPORT ---
SI JOINTS 3 OR MORE VIEWS CLINICAL HISTORY: Positive JOSS (antinuclear antibody). COMPARISON STUDY: CT of the abdomen and pelvis April 17, 2012 and pelvis radiograph December 04, 2012. FINDINGS: The sacroiliac joints are intact without evidence for ankylosis. No erosions are identified. There is minimal bilateral sacroiliac joint osteoarthritis. IMPRESSION: 1. Minimal bilateral sacroiliac joint osteoarthritis. 2. No erosions identified. Electronically signed by: Keegan Linares M.D. 03/16/2017 3:51 PM Dictated Date/Time: 03/16/2017 3:50 PM
[2017-03-16 16:38] LABS: BASO % 0.3 %; BASO ABS # 0.03 K/uL (0-0.2); COMPLETE YES; EOS % 1.4 %; IG% 0.3 %; LYMPH % 21.2 %; LYMPH ABS # 1.88 K/uL (1.2-3.4); MEAN CELL VOLUME 83.8 fL (80-100); MEAN CORPUSCULAR HEMOGLOBIN 30.2 pg (25-34); MEAN CORPUSCULAR HGB CONC 36.1 g/dl (32-36); MEAN PLATELET VOLUME 9.5 fL (7.4-10.4); MONO % 6.9 %; NEUT % 69.9 %; PLATELET COUNT 300 K/uL (130-400); RED BLOOD COUNT 5.49 M/uL (4.7-6.1); WHITE BLOOD COUNT 8.86 K/uL (4.8-10.8)
[2017-03-16 16:55] LABS: BLOOD UREA NITROGEN 12 mg/dl (7-18); BUN/CREATININE RATIO 10.6 (10-20); CALCIUM 8.8 mg/dl (8.5-10.1); CARBON DIOXIDE 28 mmol/L (21-32); CHLORIDE 101 mmol/L (98-107); GLUCOSE 78 mg/dl (70-99); SODIUM 133 mmol/L (136-145)
[2017-03-16 17:06] LABS: C-REACTIVE PROTEIN 1.28 mg/dl (0-0.29); THYROID STIMULATING HORMONE 0.842 uIu/ml (0.300-4.500)
[2017-03-17 07:16] LABS: ESTIMATED AVERAGE GLUCOSE 103 mg/dl; HA1C FLAG Normal (Normal)
[2017-03-22 02:38] LABS: ANTI-CENTROMERE AB <1.0 NEG AI (<1.0 NEG); ANTI-SS-A <1.0 NEG AI (<1.0 NEG); ANTI-SS-B <1.0 NEG AI (<1.0 NEG); DNA ds CRITHIDIA NEGATIVE (NEGATIVE); Sm Antibody <1.0 NEG AI (<1.0 NEG)
== END | disposition home or self-care (01) ==
LOC: C.RAD1850 14:54
PROVIDERS: ATTEND Internal Medicine Rheumatology
DX: M16.0 Bilateral primary osteoarthritis of hip (principal); N04.9 Nephrotic syndrome with unspecified morphologic changes; R76.8 Other specified abnormal immunological findings in serum

== ENCOUNTER → 2017-04-06 | Outpatient (CLI) | payer OTHER ==
--- NOTE | 2017-04-06 18:52 | DIAGNOSTIC IMAGING REPORT ---
SI JOINTS WITHOUT CLINICAL HISTORY: 36 years-old Male presenting with L40.9 [id number] Sacroiliac joint [id number] Positive JOSS. TECHNIQUE: Multisequence, multiplanar MR imaging of the sacroiliac joints was performed without the use of intravenous contrast. IV contrast: None. COMPARISON: Plain radiographs of the sacral leg joints from 03/16/2017. FINDINGS: Localizer images: Unremarkable. Sacroiliac joints normal-appearing without evidence of fluid within the joint space. No advanced degenerative change. No evidence of erosions. No bony edema. Normal muscle bulk and muscle signal intensity. Lower lumbar spine normal. Intrapelvic contents demonstrate grossly normal-appearing seminal vesicles and bladder. No lymphadenopathy. IMPRESSION: No evidence of inflammatory or degenerative change of the sacroiliac joints. Electronically signed by: Corey Nash M.D. 04/06/2017 6:50 PM Dictated Date/Time: 04/06/2017 6:45 PM
== END | disposition home or self-care (01) ==
LOC: C.MRI 17:32
PROVIDERS: ATTEND Internal Medicine Rheumatology
DX: L40.9 Psoriasis, unspecified (principal); M53.3 Sacrococcygeal disorders, not elsewhere classified; R76.8 Other specified abnormal immunological findings in serum

== ENCOUNTER → 2017-04-14 | Outpatient (CLI) | payer OTHER ==
[2017-04-14 12:20] LABS: BASO % 0.5 %; BASO ABS # 0.03 K/uL (0-0.2); EOS % 2.8 %; EOS ABS # 0.16 K/uL (0-0.5); HEMATOCRIT 41.8 % (42-52); HEMOGLOBIN 14.9 g/dL (14.0-18.0); IG# 0.01 K/uL (0.00-0.02); LYMPH % 27.7 %; LYMPH ABS # 1.57 K/uL (1.2-3.4); MEAN CELL VOLUME 83.4 fL (80-100); MEAN CORPUSCULAR HEMOGLOBIN 29.7 pg (25-34); MEAN CORPUSCULAR HGB CONC 35.6 g/dl (32-36); MEAN PLATELET VOLUME 9.7 fL (7.4-10.4); MONO % 8.3 %; MONO ABS # 0.47 K/uL (0.11-0.59); NEUT % 60.5 %; NEUT ABS # 3.42 K/uL (1.4-6.5); PLATELET COUNT 256 K/uL (130-400); RED CELL DISTRIBUTION WIDTH CV 13.7 % (11.5-14.5); RED CELL DISTRIBUTION WIDTH SD 40.9 fL (36.4-46.3); WHITE BLOOD COUNT 5.66 K/uL (4.8-10.8)
[2017-04-14 12:30] LABS: ALBUMIN 3.7 gm/dl (3.4-5.0); ALT/SGPT 24 U/L (12-78); AST/SGOT 19 U/L (15-37); BLOOD UREA NITROGEN 8 mg/dl (7-18); CALCIUM 9.1 mg/dl (8.5-10.1); CARBON DIOXIDE 29 mmol/L (21-32); CREATININE 1.15 mg/dl (0.60-1.40); GLUCOSE 80 mg/dl (70-99); POTASSIUM 4.3 mmol/L (3.5-5.1); SODIUM 133 mmol/L (136-145)
[2017-04-14 12:34] LABS: ALKALINE PHOSPHATASE 75 U/L (45-117); TOTAL PROTEIN 6.7 gm/dl (6.4-8.2)
== END | disposition home or self-care (01) ==
LOC: C.LAB 10:10
PROVIDERS: ATTEND Physician Assistant
DX: Z51.81 Encounter for therapeutic drug level monitoring (principal); R56.9 Unspecified convulsions

== ENCOUNTER → 2017-04-28 | Outpatient (CLI) | payer OTHER ==
[~2017-04-28] MED LIST changes: +GADAVIST IV PRN
--- NOTE | 2017-04-28 12:14 | DIAGNOSTIC IMAGING REPORT ---
BRAIN COMBO FOR SEIZURE CLINICAL HISTORY: R56.9 Seizure seizure COMPARISON STUDY: 04/09/2016 TECHNIQUE: Utilizing a 1.5 Amelia magnet and dedicated coil, multiplanar, multiecho imaging of the brain was performed pre and postcontrast administration. IV administration of 6.5 mL of Gadavist contrast was uneventful. Thin cut coronal T2 imaging was performed according to seizure protocol. FINDINGS: Diffusion-weighted images are negative for an acute ischemic insult. Signal characteristics of the cerebellar as well as cerebral hemispheres are unremarkable. There is no significant abnormal postcontrast enhancement. Ventricular system is midline. Internal auditory canals are symmetric. Sella and parasellar regions are unremarkable. IMPRESSION: Negative study. No change from the prior exam. The above report was generated using voice recognition software. It may contain grammatical, syntax or spelling errors. Electronically signed by: Vishal Álvarez M.D. 04/28/2017 12:12 PM Dictated Date/Time: 04/28/2017 12:09 PM
== END | disposition home or self-care (01) ==
LOC: C.MRIBC 10:43
PROVIDERS: ATTEND Physician Assistant
DX: R56.9 Unspecified convulsions (principal)

== ENCOUNTER → 2017-04-28 | Outpatient (CLI) | payer OTHER ==
[~2017-04-28] MED LIST changes: -GADAVIST IV PRN
--- NOTE | 2017-04-28 17:23 | EEG Procedure Note ---
EEG Procedure Note Date of Service Apr 28, 2017. Start / End Times Start Time: 13:40pm End Time: 14:00PM Referring Physician BLACK Parks History This is a 36-year-old male with history of seizures. EEG for further evaluation of possible seizure etiology. Home Medication List Scheduled Gabapentin (Gabapentin), 900 MG PO TID Lamotrigine (Lamictal), 200 MG PO DAILY Levothyroxine Sodium (Levothyroxine Sodium), 50 MCG PO DAILY Lurasidone Hcl (Latuda), 30 MG PO DAILY Methadone Hcl (Methadose), 92 MG PO DAILY Metoprolol Tartrate (Lopressor) (Lopressor), 50 MG PO BID Ondansetron (Ondansetron HCl), 8 MG PO DAILY Sertraline Hcl (Zoloft), 25 MG PO DAILY [Lactose], 150 MG PO TID Description This is a 21 electrode EEG with a single channel dedicated to limited EKG. The electrodes were placed in accordance with the International 10-20 system. At the start of the recording the patient was in an awake state. Background was well organized and composed of symmetric mixed alpha and beta frequencies. There was a symmetric well-formed moderate amplitude 9-10 Hz posterior dominant rhythm that was reactive to eye opening and closure. Hyperventilation was not done. Intermittent photic stimulation at various frequencies produced no abnormalities. Drowsiness was indicated by loss of muscle artifact, slowing of the background rhythm, and vertex waves. There was no stage II sleep transients. Interpretation This is a normal awake and drowsy routine EEG. There was no electrographic seizures or epileptiform discharges. Clinical Correlation A normal EEG does not rule out epilepsy if there is a strong clinical suspicion.
== END | disposition home or self-care (01) ==
LOC: C.NEUR 13:15
PROVIDERS: ATTEND Physician Assistant
DX: R56.9 Unspecified convulsions (principal)

== ENCOUNTER → 2017-06-21 | Outpatient (CLI) | payer OTHER | END | disposition home or self-care (01) | LOC: C.LAB 09:53 | PROVIDERS: ATTEND Physician Assistant | DX: R29.898 Other symptoms and signs involving the musculoskeletal system (principal) ==

== ENCOUNTER 2018-11-12 16:11 | Inpatient (IN) ==
[2018-11-12] MEDS ORDERED: ONDANSETRON INJ 2 MG/ML 2 ML VIAL IV STA (16:37)
[2018-11-12] MEDS ORDERED: SODIUM CHLORIDE 0.9% 1000ML 2,000 ML IV SCH (16:45)
--- NOTE | 2018-11-12 16:51 | XRay Report ---
XR chest 1V portable CLINICAL HISTORY: 38 years-old Male presenting with dizzy. TECHNIQUE: Portable upright AP view of the chest was obtained. COMPARISON: 10/17/2018. FINDINGS: Median sternotomy wires and prosthetic aortic valve noted. Cardiac silhouette mildly enlarged. No foc al opacity. No large effusion or pneumothorax. Osseous structures normal. Upper abdomen normal. IMPRESSION: 1. Prosthetic aortic valve. 2. Mild cardiomegaly. No acute cardiopulmonary disease. Electronically signed by: Corey Nash M.D. 11/12/2018 4:50 PM
[2018-11-12 17:52] LABS: Basophils # (auto) 0.01 K/uL (0-0.2); Basophils % (auto) 0.1 %; Eosinophils # (auto) 0.07 K/uL (0-0.5); Hematocrit (blood only) 42.8 % (42-52); Hemoglobin 15.7 g/dL (14.0-18.0); Immature Granulocytes # (auto) 0.01 K/uL (0.00-0.02); Immature Granulocytes % (auto) 0.1 %; Lymphocytes # (auto) 0.69 K/uL (1.2-3.4); Mean Corpuscular Hgb Conc 36.7 g/dL (32-36); Mean Corpuscular Volume 82.3 fL (80-100); Mean Platelet Volume 8.8 fL (7.4-10.4); Monocytes # (auto) 0.21 K/uL (0.11-0.59); Neutrophils # (auto) 5.93 K/uL (1.4-6.5); Neutrophils % (auto) 85.8 %; Platelet Count 188 K/uL (130-400); RDW Standard Deviation 39.2 fL (36.4-46.3); White Blood Count 6.92 K/uL (4.8-10.8)
[2018-11-12 18:01] LABS: Prothrombin Time 10.3 Seconds (9.0-12.0)
[2018-11-12 18:14] LABS: Alanine Aminotransferase 23 U/L (12-78); Albumin Globulin Ratio 1.1 (0.9-2); Alkaline Phosphatase 84 U/L (45-117); BUN Creatinine Ratio 9.6 (10-20); Bilirubin,Total 0.6 mg/dl (0.2-1); Blood Urea Nitrogen 12 mg/dl (7-18); Carbon Dioxide 29 mmol/L (21-32); Chloride 101 mmol/L (98-107); Creatinine Clr Calc Pharmacy 90.1 ml/min; Est GFR (African American) 87.8; Est GFR (Non-African American) 75.7; Globulin 3.6 gm/dl (2.5-4.0); Glucose 122 mg/dl (70-99); Sodium 137 mmol/L (136-145); Total Protein 7.6 gm/dl (6.4-8.2); Troponin I < 0.015 ng/ml (0-0.045)
--- NOTE | 2018-11-12 18:15 | CT Scan Report ---
CT head/brain wo con CLINICAL HISTORY: 38 years-old Male presenting with dizziness, lightheadedness. TECHNIQUE: Multidetector CT imaging of the head was performed without the use of intravenous contrast . IV contrast: None. One or more dose lowering techniques were used consistent with the principles of ALARA (as low as reasonably achievable), including automatic exposure control, mA or kV adjustment t o individual patient size, and/or use of iterative reconstruction. COMPARISON: 06/19/2014. CT DOSE (mGy.cm): The estimated cumulative dose is 537.48 mGy.cm. FINDINGS: Automation Qa Tester topogram: Unremarkable. Ventricles and sulci normal in size. No hemorrhage. Brain parenchyma normal in appearance with preser kg bolivar-white differentiation. No acute territorial infarct. No mass effect or midline shift. No ext ra-axial fluid collection. Paranasal sinuses and mastoid air cells clear. Calvarium intact. IMPRESSION: 1. No acute intracranial abnormality. Electronically signed by: Corey Nash M.D. 11/12/2018 6:13 PM
[2018-11-12] MEDS ORDERED: ASPIRIN CHEW 324 MG PO STA (18:30)
[2018-11-12] MEDS ORDERED: POLYETHYLENE (MIRALAX) 17 GM PACK PO PRN (20:56)
[2018-11-12] MEDS ORDERED: ALUMINUM/MAGNESIUM SUSP 30 ML UDC PO PRN (20:56)
[2018-11-12] MEDS ORDERED: CYCLOBENZAPRINE HCL 10 MG TAB PO PRN (20:56)
[2018-11-12] MEDS ORDERED: ZOLPIDEM TARTRATE 5 MG TAB PO PRN (20:56)
[2018-11-12] MEDS ORDERED: MAGNESIUM HYDROXIDE SUSP 30 ML UDC PO PRN (20:56)
[2018-11-12] MEDS ORDERED: GABAPENTIN 600 MG TAB PO SCH (21:00)
--- NOTE | 2018-11-12 21:33 | History & Physical Report ---
Date of Service November 12, 2018 Assessment & Plan (1) Hypertensive urgency: Admits to observation on telemetry -Vital signs every 4 hours -Troponins every 6 hours with EKG x3 to rule out acute coronary syndrome. Initial troponin negative. -Hydralazine 10 mg p.o. 3 times daily as needed for blood pressure above 160/90. -Continue home medicine: Hydrochlorothiazide 12.5 mg p.o. every morning and metoprolol 75 mg twice daily tablet. -tte, if abnormal consider consulting cardiology since patient have extensive cardiac history. -Strict in and out -Daily weight -Heart healthy diet, low-sodium -DVT prophylaxis with Lovenox 40 mg sc daily. -Full code (2) Dizziness: -As the above Present on Admission?: Yes (3) Bipolar disorder: Status stable on admission. -Continue home medicine -Weaning from drug abuse-continue methadone 102 mg p.o. nightly. -Lamotrigine 225 mg p.o. daily -Gabapentin 1500 milligrams 3 times a day -Escitalopram 20 mg p.o. every morning Present on Admission?: Yes History of Present Illness Chief Complaint: Hypertensive urgency Primary Care Provider: Tao Verma MD Patient is a 38 years old male with past medical history of hypertension, psor iasis, depression, open heart surgery, hypothyroidism, mitral valve repair, fibromyalgia, migraine headache, presents to the emergency room with a complaint of tightness in his chest and sweating that started this morning and it was associated with elevated blood pressure to 240/100. Patient said that in the morning he usually takes his methadone because he is in the program of weaning from the IV drug abuse and he was not doing anything in particular a physically strenuous but started to feel profuse sweating and tightness. Patient reports that prior to this event he did consume a large amount of of foods containing carbohydrates and sweets and then he started to feel sweaty and almost passed out. Surgery of the [place] was done in 2012 in [facility]. Patient also said that in the past several days he has persistent migraine headache and that he is Dr. try to help him increasing metoprolol but this time that did not help. After patient arrived in the emergency room his blood pressure improved and it was 166/107 and 152/98. Patient was given aspirin 324 p.o. in the ER and Zofran 4 mg IV, he also received 2 L of fluid. Labs were reviewed white blood cell count of 6.92, hemoglobin 15.7, hematocrit 42.8, platelets 188, INR 1.0, PT of 10.3, sodium 137, potassium of 4, chloride 101 anion gap 7 BUN 12 creatinine 1.2 GFR 90.1 BUN/creatinine ratio 9.6, AST 23 ALT 23 alkaline phosphatase 84 troponin 0 0.015. EKG significant for normal sinus rhythm, T wave inversion. When compared with the previous EKG on November 12, 2018. No significant changes found from . Chest x-rays: Prostatic aortic valve, mild cardiomegaly, no acute cardiopulmonary disease. Head CT no acute intracranial abnormality. Allergies Allergy/AdvReac Type Severity Reaction Status Date / Time pollen extracts Allergy Mild . Verified 11/12/18 17:25 bupropion AdvReac Severe seizures Verified 11/12/18 17:25 varenicline AdvReac Severe SEIZURE Verified 11/12/18 17:25 Home Medications Home Medications Medication Instructions Recorded Confirmed Type cyclobenzaprine 10 mg tablet 10 mg PO TID PRN 04/11/18 11/12/18 History gabapentin 300 mg capsule 900 mg PO TID cap 04/11/18 11/12/18 History lamotrigine 200 mg tablet 200 mg PO QAM 04/11/18 11/12/18 History levothyroxine 50 mcg capsule 50 mcg PO QAM 04/11/18 11/12/18 History metoprolol tartrate 50 mg tablet 75 mg PO BID 04/11/18 11/12/18 History cephalexin 500 mg PO BID 11/12/18 11/12/18 History escitalopram oxalate 20 mg PO QAM 11/12/18 11/12/18 History gabapentin 600 mg PO TID 11/12/18 11/12/18 History hydrochlorothiazide 12.5 mg PO QAM 11/12/18 11/12/18 History ibuprofen 600 mg PO Q8H PRN 11/12/18 11/12/18 History lamotrigine 25 mg PO QPM 11/12/18 11/12/18 History lurasidone [Latuda] 30 mg PO HS 11/12/18 11/12/18 History methadone 102 mg PO DAILY 11/12/18 11/12/18 History ondansetron HCl 4 mg PO DIRECTED PRN 11/12/18 11/12/18 History Past Med/Surg History Medical History Minor neurocognitive disorder (Chronic) History of endocarditis (Chronic) History of seizure (Chronic) Posttraumatic stress disorder (Chronic) History of nephrotic syndrome (Chronic) Hypothyroidism (Chronic) Fibromyalgia (Chronic) GERD (gastroesophageal reflux disease) (Chronic) Tobacco use (Chronic) Lumbar radiculopathy (Chronic) Bipolar disorder (Chronic) Hypertension (Chronic) Asthma (Chronic) Hernia (Resolved) Drug abuse (Inactive 01/07/13) Nephrotic syndrome (Resolved 01/07/13) Psoriasis (Chronic 01/07/13) Migraine (Chronic) Sternoclavicular separation (Resolved) Endocarditis (Resolved) Mediastinitis (Resolved) IV drug abuse (Inactive) Line sepsis (Resolved) "Candidemia due to PICC" Surgical History History of mitral valve repair (Chronic) Social History Preferred Language: Yi Mcat Instructor Required: No Beliefs That Will Affect Care: None Current Living Situation: Family Current Living Situation Comment: parents Feels Safe at Home: Yes Safety Concerns: Feels Safe At This Time Smoking Status: Former smoker Hx Alcohol Use: No Hx Substance Use: No Review of Systems Review of Systems: All systems reviewed & are unremarkable except as noted in HPI & below Physical Exam Constitutional: WD/WN, vitals as above well developed and + obese Eyes: PERRL, conjunctivae normal, anicteric sclerae ENMT: external ear and nose normal, oropharynx normal Neck: trachea midline, no thyromegaly Respiratory: normal respiratory effort, lungs clear to auscultation Cardiovascular: Heart Sounds: normal S1, normal S2 and + murmur Chest (Breasts): normal inspection/palpation of breasts Gastrointestinal (Abdomen): normal bowel sounds, soft, nontender, no hepatosplenomegaly Musculoskeletal: no cyanosis or clubbing, extremities motor strength 5/5 Skin: no rashes, warm and dry Neurologic: patellar DTR's 2+ bilat, sensation intact Psychiatric: A+Ox3, euthymic affect Genitourinary: no testicular masses, no penis abnormality Lymphatic: no cervical or axillary lymphadenopathy Results & Data Vital Signs (Past 12 Hours) Vital Signs Temp Pulse Pulse Pulse Resp BP BP 11/12/18 20:57 37.2 C 83 16 189/113 H 11/12/18 20:43 78 21 176/108 H 11/12/18 20:40 71 13 11/12/18 20:30 76 19 11/12/18 20:20 73 18 11/12/18 20:10 78 24 11/12/18 20:00 83 15 161/109 H 11/12/18 19:50 74 19 11/12/18 19:40 75 20 11/12/18 19:32 78 21 152/98 H 11/12/18 19:30 74 16 11/12/18 19:20 77 17 11/12/18 19:10 73 19 11/12/18 19:00 74 21 11/12/18 18:50 72 26 H 11/12/18 18:40 75 24 11/12/18 18:30 75 24 11/12/18 18:20 81 26 H 11/12/18 18:19 78 23 166/107 H 11/12/18 18:16 79 14 11/12/18 18:11 76 23 166/107 H 11/12/18 17:40 76 19 11/12/18 17:30 70 17 11/12/18 17:20 76 18 11/12/18 17:10 75 13 11/12/18 17:00 75 16 11/12/18 16:53 11/12/18 16:50 70 21 11/12/18 16:48 74 19 11/12/18 16:46 76 22 155/105 H 11/12/18 16:12 36.5 C 80 16 178/97 H Pulse Ox 11/12/18 20:57 98 11/12/18 20:43 11/12/18 20:40 11/12/18 20:30 11/12/18 20:20 97 11/12/18 20:10 96 11/12/18 20:00 95 11/12/18 19:50 95 11/12/18 19:40 96 11/12/18 19:32 99 11/12/18 19:30 97 11/12/18 19:20 97 11/12/18 19:10 98 11/12/18 19:00 98 11/12/18 18:50 96 11/12/18 18:40 96 11/12/18 18:30 98 11/12/18 18:20 97 11/12/18 18:19 98 11/12/18 18:16 91 11/12/18 18:11 98 11/12/18 17:40 11/12/18 17:30 11/12/18 17:20 11/12/18 17:10 11/12/18 17:00 11/12/18 16:53 98 11/12/18 16:50 97 11/12/18 16:48 98 11/12/18 16:46 98 11/12/18 16:12 100 Code Status & VTE Plan Code Status Full code VTE Prophylaxis Plan VTE Prophylaxis will be ordered: Yes PG Care Time/CCT Total # of Minutes Spent Total Time Spent with Patient: Total time spent is greater than 50% in coordination of care (as documented) at patient's floor/unit and/or counseling patient:
[2018-11-12] MEDS: ENOXAPARIN INJ 40 MG/0.4 ML SYR SQ SCH (21:56)
[2018-11-12] MEDS: lamoTRIgine 100 MG TAB PO SCH (21:57)
[2018-11-12] MEDS: GABAPENTIN 300 MG CAP PO SCH (21:58)
[2018-11-12] MEDS: lamoTRIgine 25 MG TAB PO SCH (22:00)
[2018-11-12] MEDS: METOPROLOL TARTRATE 25 MG TAB PO SCH (22:00)
--- NOTE | 2018-11-12 23:04 | Emergency Department Note ---
Entered by Shaneka Shelton acting as a scribe for History of Present Illness General Chief complaint: Hypertension Stated complaint: HIGH BP WITH CLEMENS, 240/120 PAST HR Source: patient Limitations: no limitations History of Present Illness Onset (ago): hour(s) (a few hours ago) Location: head Pain Consistency: + other (persistent) Maximum Pain Intensity: 0 Quality: + other (hypertension) Associated symptoms: + denies other symptoms (abdominal pain, nausea/vomiting, hemoptysis, change in vision, and diarrhea) and + headaches; no nausea/vomiting The patient is a 38 year old male with a PMHx of endocarditis, mitral valve replacement, and drug abuse who presents to the Emergency Room with complaints of persistent hypertension that began a few hours ago. He reports that the elevated blood pressure reached 240/120. The patient states that this occurred after an episode of lightheadedness, near-syncope, and diaphoresis. He complains of nausea during this episode. The patient complains of a headache and neck pain. He denies any abdominal pain, nausea/vomiting, hemoptysis, change in vision, and diarrhea. The patient reports that he has been following up with his PCP, Dr. Verma, for his hypertension. He notes that he takes metoprolol 75 mg twice a daily, and he did take his medication this morning. The patient notes reports that he is a past smoker. He denies any recent trips, travel, and clotting disorders. The patient notes that he had a bone chip removed from his left foot at [facility] a few days ago. Home Medications Home Medications Medication Instructions Recorded Confirmed Type cyclobenzaprine 10 mg tablet 10 mg PO TID PRN 04/11/18 11/12/18 History gabapentin 300 mg capsule 900 mg PO TID cap 04/11/18 11/12/18 History lamotrigine 200 mg tablet 200 mg PO QAM 04/11/18 11/12/18 History levothyroxine 50 mcg capsule 50 mcg PO QAM 04/11/18 11/12/18 History metoprolol tartrate 50 mg tablet 75 mg PO BID 04/11/18 11/12/18 History cephalexin 500 mg PO BID 11/12/18 11/12/18 History escitalopram oxalate 20 mg PO QAM 11/12/18 11/12/18 History gabapentin 600 mg PO TID 11/12/18 11/12/18 History hydrochlorothiazide 12.5 mg PO QAM 11/12/18 11/12/18 History ibuprofen 600 mg PO Q8H PRN 11/12/18 11/12/18 History lamotrigine 25 mg PO QPM 11/12/18 11/12/18 History lurasidone [Latuda] 30 mg PO HS 11/12/18 11/12/18 History methadone 102 mg PO DAILY 11/12/18 11/12/18 History ondansetron HCl 4 mg PO DIRECTED PRN 11/12/18 11/12/18 History Allergies Allergy/AdvReac Type Severity Reaction Status Date / Time pollen extracts Allergy Mild . Verified 11/12/18 17:25 bupropion AdvReac Severe seizures Verified 11/12/18 17:25 varenicline AdvReac Severe SEIZURE Verified 11/12/18 17:25 Past Med/Surg History Medical History Minor neurocognitive disorder (Chronic) History of endocarditis (Chronic) History of seizure (Chronic) Posttraumatic stress disorder (Chronic) History of nephrotic syndrome (Chronic) Hypothyroidism (Chronic) Fibromyalgia (Chronic) GERD (gastroesophageal reflux disease) (Chronic) Tobacco use (Chronic) Lumbar radiculopathy (Chronic) Bipolar disorder (Chronic) Hypertension (Chronic) Asthma (Chronic) Hernia (Resolved) Drug abuse (Inactive 01/07/13) Nephrotic syndrome (Resolved 01/07/13) Psoriasis (Chronic 01/07/13) Migraine (Chronic) Sternoclavicular separation (Resolved) Endocarditis (Resolved) Mediastinitis (Resolved) IV drug abuse (Inactive) Line sepsis (Resolved) "Candidemia due to PICC" Surgical History History of mitral valve repair (Chronic) Social History Preferred Language: Greenlandic [employer] Operating [employer] Required: No Beliefs That Will Affect Care: None Current Living Situation: Family Current Living Situation Comment: parents Feels Safe at Home: Yes Safety Concerns: Feels Safe At This Time Smoking Status: Former smoker Hx Alcohol Use: No Hx Substance Use: No Review of Systems See HPI for pertinent positives & negatives. and A total of 10 systems reviewed and were otherwise negative Physical Exam Vital Signs Vital Signs - 24 hr 11/12/18 16:12 11/12/18 16:44 11/12/18 16:46 Temperature 36.5 C Temperature Source Oral Sepsis Recent Fever Within 48 Hours No Sepsis Action Taken by Nursing No Action Required Pulse Rate - Lying 74 Pulse Rate - Sitting 72 Pulse Rate - Standing 82 Pulse Rate 80 76 Pulse Rate [Apical] Pulse Rate from SpO2 Sensor 76 Pulse Rhythm [Apical] Pulse Strength Normal Respiratory Rate 16 22 Respiratory Effort / Characteristics Non-Labored Respiratory Depth Normal Respiratory Pattern Regular Blood Pressure - Lying 162/105 H Blood Pressure - Sitting 164/108 H Blood Pressure- Standing 155/105 H Blood Pressure 178/97 H 155/105 H Blood Pressure [Right Arm] Blood Pressure Mean 124 121 Blood Pressure Mean [Right Arm] Blood Pressure Position Sitting Blood Pressure Position [Right Arm] Pulse Oximetry 100 98 Oxygen Delivery Method Room Air 11/12/18 16:48 11/12/18 16:50 11/12/18 16:53 Temperature Temperature Source Sepsis Recent Fever Within 48 Hours Sepsis Action Taken by Nursing Pulse Rate - Lying Pulse Rate - Sitting Pulse Rate - Standing Pulse Rate 74 70 Pulse Rate [Apical] Pulse Rate from SpO2 Sensor 74 78 Pulse Rhythm [Apical] Pulse Strength Respiratory Rate 19 21 Respiratory Effort / Characteristics Respiratory Depth Respiratory Pattern Blood Pressure - Lying Blood Pressure - Sitting Blood Pressure- Standing Blood Pressure Blood Pressure [Right Arm] Blood Pressure Mean Blood Pressure Mean [Right Arm] Blood Pressure Position Blood Pressure Position [Right Arm] Pulse Oximetry 98 97 98 Oxygen Delivery Method Room Air 11/12/18 17:00 11/12/18 17:10 11/12/18 17:20 Temperature Temperature Source Sepsis Recent Fever Within 48 Hours Sepsis Action Taken by Nursing Pulse Rate - Lying Pulse Rate - Sitting Pulse Rate - Standing Pulse Rate 75 75 76 Pulse Rate [Apical] Pulse Rate from SpO2 Sensor Pulse Rhythm [Apical] Pulse Strength Respiratory Rate 16 13 18 Respiratory Effort / Characteristics Respiratory Depth Respiratory Pattern Blood Pressure - Lying Blood Pressure - Sitting Blood Pressure- Standing Blood Pressure Blood Pressure [Right Arm] Blood Pressure Mean Blood Pressure Mean [Right Arm] Blood Pressure Position Blood Pressure Position [Right Arm] Pulse Oximetry Oxygen Delivery Method 11/12/18 17:30 11/12/18 17:40 11/12/18 18:11 Temperature Temperature Source Sepsis Recent Fever Within 48 Hours Sepsis Action Taken by Nursing Pulse Rate - Lying Pulse Rate - Sitting Pulse Rate - Standing Pulse Rate 70 76 Pulse Rate [Apical] 76 Pulse Rate from SpO2 Sensor Pulse Rhythm [Apical] Regular Pulse Strength Respiratory Rate 17 19 23 Respiratory Effort / Characteristics Non-Labored Respiratory Depth Normal Respiratory Pattern Blood Pressure - Lying Blood Pressure - Sitting Blood Pressure- Standing Blood Pressure Blood Pressure [Right Arm] 166/107 H Blood Pressure Mean Blood Pressure Mean [Right Arm] 126 Blood Pressure Position Blood Pressure Position [Right Arm] Sitting Pulse Oximetry 98 Oxygen Delivery Method Room Air 11/12/18 18:16 11/12/18 18:19 11/12/18 18:20 Temperature Temperature Source Sepsis Recent Fever Within 48 Hours Sepsis Action Taken by Nursing Pulse Rate - Lying Pulse Rate - Sitting Pulse Rate - Standing Pulse Rate 79 78 81 Pulse Rate [Apical] Pulse Rate from SpO2 Sensor 79 79 81 Pulse Rhythm [Apical] Pulse Strength Respiratory Rate 14 23 26 H Respiratory Effort / Characteristics Respiratory Depth Respiratory Pattern Blood Pressure - Lying Blood Pressure - Sitting Blood Pressure- Standing Blood Pressure 166/107 H Blood Pressure [Right Arm] Blood Pressure Mean 126 Blood Pressure Mean [Right Arm] Blood Pressure Position Blood Pressure Position [Right Arm] Pulse Oximetry 91 98 97 Oxygen Delivery Method 11/12/18 18:30 11/12/18 18:40 11/12/18 18:50 Temperature Temperature Source Sepsis Recent Fever Within 48 Hours Sepsis Action Taken by Nursing Pulse Rate - Lying Pulse Rate - Sitting Pulse Rate - Standing Pulse Rate 75 75 72 Pulse Rate [Apical] Pulse Rate from SpO2 Sensor 74 76 73 Pulse Rhythm [Apical] Pulse Strength Respiratory Rate 24 24 26 H Respiratory Effort / Characteristics Respiratory Depth Respiratory Pattern Blood Pressure - Lying Blood Pressure - Sitting Blood Pressure- Standing Blood Pressure Blood Pressure [Right Arm] Blood Pressure Mean Blood Pressure Mean [Right Arm] Blood Pressure Position Blood Pressure Position [Right Arm] Pulse Oximetry 98 96 96 Oxygen Delivery Method 11/12/18 19:00 11/12/18 19:10 11/12/18 19:20 Temperature Temperature Source Sepsis Recent Fever Within 48 Hours Sepsis Action Taken by Nursing Pulse Rate - Lying Pulse Rate - Sitting Pulse Rate - Standing Pulse Rate 74 73 77 Pulse Rate [Apical] Pulse Rate from SpO2 Sensor 74 73 76 Pulse Rhythm [Apical] Pulse Strength Respiratory Rate 21 19 17 Respiratory Effort / Characteristics Respiratory Depth Respiratory Pattern Blood Pressure - Lying Blood Pressure - Sitting Blood Pressure- Standing Blood Pressure Blood Pressure [Right Arm] Blood Pressure Mean Blood Pressure Mean [Right Arm] Blood Pressure Position Blood Pressure Position [Right Arm] Pulse Oximetry 98 98 97 Oxygen Delivery Method 11/12/18 19:30 11/12/18 19:32 11/12/18 19:40 Temperature Temperature Source Sepsis Recent Fever Within 48 Hours Sepsis Action Taken by Nursing Pulse Rate - Lying Pulse Rate - Sitting Pulse Rate - Standing Pulse Rate 74 78 75 Pulse Rate [Apical] Pulse Rate from SpO2 Sensor 74 78 76 Pulse Rhythm [Apical] Pulse Strength Respiratory Rate 16 21 20 Respiratory Effort / Characteristics Respiratory Depth Respiratory Pattern Blood Pressure - Lying Blood Pressure - Sitting Blood Pressure- Standing Blood Pressure 152/98 H Blood Pressure [Right Arm] Blood Pressure Mean 116 Blood Pressure Mean [Right Arm] Blood Pressure Position Blood Pressure Position [Right Arm] Pulse Oximetry 97 99 96 Oxygen Delivery Method 11/12/18 19:50 11/12/18 20:00 Temperature Temperature Source Sepsis Recent Fever Within 48 Hours Sepsis Action Taken by Nursing Pulse Rate - Lying Pulse Rate - Sitting Pulse Rate - Standing Pulse Rate 74 83 Pulse Rate [Apical] Pulse Rate from SpO2 Sensor 75 85 Pulse Rhythm [Apical] Pulse Strength Respiratory Rate 19 15 Respiratory Effort / Characteristics Respiratory Depth Respiratory Pattern Blood Pressure - Lying Blood Pressure - Sitting Blood Pressure- Standing Blood Pressure 161/109 H Blood Pressure [Right Arm] Blood Pressure Mean 126 Blood Pressure Mean [Right Arm] Blood Pressure Position Blood Pressure Position [Right Arm] Pulse Oximetry 95 95 Oxygen Delivery Method GENERAL: sitting up in bed, anxious appearing, wearing glasses with a shaved head, speaking in full sentences EYE EXAM: normal conjunctiva OROPHARYNX: no exudate, no erythema, lips, buccal mucosa, and tongue normal and mucous membranes are moist NECK: supple, no nuchal rigidity, no adenopathy, non-tender LUNGS: Clear to auscultation. Normal chest wall mechanics HEART: no murmurs, S1 normal and S2 normal ABDOMEN: abdomen soft, non-tender, normo-active bowel sounds, no masses, no rebound or guarding. BACK: Back is symmetrical on inspection and there is no deformity, no midline tenderness, no CVA tenderness. SKIN: no rashes and no bruising UPPER EXTREMITIES: upper extremities are grossly normal. LOWER EXTREMITIES: No pitting edema. NEURO EXAM: Normal sensorium, cranial nerves II-XII intact, normal speech, now eakness of arms, no weakness of legs. No drift. Finger to nose intact. Gross sensation intact. Course ED COURSE: Vital signs were reviewed and showed hypertension. The patients medical record was reviewed The above diagnostic studies were performed and reviewed. ED treatments and interventions as stated above. 1630: The patient was evaluated in room B12. A complete history and physical examination was performed. 1716: The nursing staff is attempting to get an IV. 1746: The nursing staff was able to obtain and IV. 1828: I spoke with Dr. Renae, [facility] hospitalist, about the patients case. She will further evaluate the patient. 1830: Upon reevaluation, the patient is stable. I discussed my findings with the patient and he understands and agrees with the treatment plan. Based on the patients age, coexisting illnesses, exam and lab findings the decision to treat as an inpatient was made. The patient remained stable while under my care. The patient will be evaluated for further management. Consultations Consultation #1: I spoke with Dr. Renae, [facility] hospitalist, about the patients case. She will further evaluate the patient. Time: 18:28 Administered Medications Enoxaparin Sodium (Lovenox) 40 mg SQ Q24H ELIS Stop: 12/12/18 21:59 Last Admin: 11/12/18 21:56 Dose: 40 mg Documented by: [id number] Gabapentin (Neurontin) 900 mg PO TID ELIS Stop: 12/12/18 20:59 Last Admin: 11/12/18 21:58 Dose: 900 mg Documented by: [id number] Lamotrigine (Lamictal) 25 mg PO QPM ELIS Stop: 12/12/18 20:59 Last Admin: 11/12/18 22:00 Dose: 25 mg Documented by: [id number] Metoprolol Tartrate (Lopressor) 75 mg PO BID ELIS Stop: 12/12/18 20:59 Last Admin: 11/12/18 22:00 Dose: 75 mg Documented by: [id number] Discontinued Medications Aspirin (Aspirin) 324 mg PO NOW STA Stop: 11/12/18 18:31 Last Admin: 11/12/18 18:44 Dose: 324 mg Documented by: [id number] Sodium Chloride (Nss 1000ml) 2,000 mls @ 999 mls/hr IV .Q2H1M ELIS Stop: 11/12/18 18:45 Last Infusion: 11/12/18 20:45 Dose: 0 mls/hr Documented by: [id number] Admin: 11/12/18 17:40 Dose: 999 mls/hr Documented by: [id number] Ondansetron HCl (Zofran) 4 mg IV NOW STA Stop: 11/12/18 16:38 Last Admin: 11/12/18 17:40 Dose: 4 mg Documented by: [id number] Medical Decision Making Differential Diagnosis Etiologies such as benign hypertension, hypertensive emergency, cardiovascular pathology, intracranial process, toxic ingestion, withdrawal syndrome, electrolyte abnormality, renal disease, end organ damage, as well as others were entertained. Medical Records Attestation: I reviewed the patient's medical records. Home Medications Current Medication List: was personally reviewed by me Laboratory Data Attestation: I reviewed the patient's lab results. Result diagrams: 11/12/18 17:43 11/12/18 18:45 Lab Results 11/12/18 11/12/18 11/12/18 Range/Units 17:43 17:43 17:43 WBC 6.92 (4.8-10.8) K/uL RBC 5.20 (4.7-6.1) M/uL Hgb 15.7 (14.0-18.0) g/dL Hct 42.8 (42-52) % MCV 82.3 (80-100) fL MCH 30.2 (25-34) pg MCHC 36.7 H (32-36) g/dL RDW Std Deviation 39.2 (36.4-46.3) fL RDW Coeff of Nelida 13.0 (11.5-14.5) % Plt Count 188 (130-400) K/uL MPV 8.8 (7.4-10.4) fL Immature Gran % (Auto) 0.1 % Neut % (Auto) 85.8 % Lymph % (Auto) 10.0 % Hinds % (Auto) 3.0 % Eos % (Auto) 1.0 % Baso % (Auto) 0.1 % Immature Gran # (Auto) 0.01 (0.00-0.02) K/uL Neut # (Auto) 5.93 (1.4-6.5) K/uL Lymph # (Auto) 0.69 L (1.2-3.4) K/uL Hinds # (Auto) 0.21 (0.11-0.59) K/uL Eos # (Auto) 0.07 (0-0.5) K/uL Baso # (Auto) 0.01 (0-0.2) K/uL PT 10.3 (9.0-12.0) Seconds INR 1.0 (0.9-1.1) Sodium 137 (136-145) mmol/L Potassium (3.5-5.1) mmol/L Chloride 101 (98-107) mmol/L Carbon Dioxide 29 (21-32) mmol/L Anion Gap 7.0 (3-11) BUN 12 (7-18) mg/dl Creatinine 1.20 (0.6-1.4) mg/dl Est Cr Clr Drug Dosing 90.1 ml/min Est GFR ( Amer) 87.8 Est GFR (Non-Af Amer) 75.7 BUN/Creatinine Ratio 9.6 L (10-20) Glucose 122 H (70-99) mg/dl Calcium 9.0 (8.5-10.1) mg/dl Total Bilirubin 0.6 (0.2-1) mg/dl AST (15-37) U/L ALT 23 (12-78) U/L Alkaline Phosphatase 84 (45-117) U/L Troponin I < 0.015 (0-0.045) ng/ml Total Protein 7.6 (6.4-8.2) gm/dl Albumin 4.0 (3.4-5.0) gm/dl Globulin 3.6 (2.5-4.0) gm/dl Albumin/Globulin Ratio 1.1 (0.9-2) 11/12/18 Range/Units 18:45 WBC (4.8-10.8) K/uL RBC (4.7-6.1) M/uL Hgb (14.0-18.0) g/dL Hct (42-52) % MCV (80-100) fL MCH (25-34) pg MCHC (32-36) g/dL RDW Std Deviation (36.4-46.3) fL RDW Coeff of Nelida (11.5-14.5) % Plt Count (130-400) K/uL MPV (7.4-10.4) fL Immature Gran % (Auto) % Neut % (Auto) % Lymph % (Auto) % Hinds % (Auto) % Eos % (Auto) % Baso % (Auto) % Immature Gran # (Auto) (0.00-0.02) K/uL Neut # (Auto) (1.4-6.5) K/uL Lymph # (Auto) (1.2-3.4) K/uL Hinds # (Auto) (0.11-0.59) K/uL Eos # (Auto) (0-0.5) K/uL Baso # (Auto) (0-0.2) K/uL PT (9.0-12.0) Seconds INR (0.9-1.1) Sodium (136-145) mmol/L Potassium 4.0 (3.5-5.1) mmol/L Chloride (98-107) mmol/L Carbon Dioxide (21-32) mmol/L Anion Gap (3-11) BUN (7-18) mg/dl Creatinine (0.6-1.4) mg/dl Est Cr Clr Drug Dosing ml/min Est GFR ( Amer) Est GFR (Non-Af Amer) BUN/Creatinine Ratio (10-20) Glucose (70-99) mg/dl Calcium (8.5-10.1) mg/dl Total Bilirubin (0.2-1) mg/dl AST 23 (15-37) U/L ALT (12-78) U/L Alkaline Phosphatase (45-117) U/L Troponin I (0-0.045) ng/ml Total Protein (6.4-8.2) gm/dl Albumin (3.4-5.0) gm/dl Globulin (2.5-4.0) gm/dl Albumin/Globulin Ratio (0.9-2) Imaging Data Radiologist's Impression: Radiology results as stated below per my review and the radiologist's interpretation: CT head/brain wo con CLINICAL HISTORY: 38 years-old Male presenting with dizziness, lightheadedness. TECHNIQUE: Multidetector CT imaging of the head was performed without the use of intravenous contrast. IV contrast: None. One or more dose lowering techniques were used consistent with the principles of ALARA (as low as reasonably achievable), including automatic exposure control, mA or kV adjustment to individual patient size, and/or use of iterative reconstruction. COMPARISON: 06/19/2014. CT DOSE (mGy.cm): The estimated cumulative dose is 537.48 mGy.cm. FINDINGS: [employer] Work[employer] topogram: Unremarkable. Ventricles and sulci normal in size. No hemorrhage. Brain parenchyma normal in appearance with preserved bolivar-white differentiation. No acute territorial infa rct. No mass effect or midline shift. No extra-axial fluid collection. Paranasal sinuses and mastoid air cells clear. Calvarium intact. IMPRESSION: 1. No acute intracranial abnormality. Electronically signed by: Corey Nash M.D. 11/12/2018 6:13 PM XR chest 1V portable CLINICAL HISTORY: 38 years-old Male presenting with dizzy. TECHNIQUE: Portable upright AP view of the chest was obtained. COMPARISON: 10/17/2018. FINDINGS: Median sternotomy wires and prosthetic aortic valve noted. Cardiac silhouette mildly enlarged. No focal opacity. No large effusion or pneumothorax. Osseous structures normal. Upper abdomen normal. IMPRESSION: 1. Prosthetic aortic valve. 2. Mild cardiomegaly. No acute cardiopulmonary disease. Electronically signed by: Corey Nash M.D. 11/12/2018 4:50 PM ECG Data Attestation: I personally reviewed and interpreted this ECG as follows: Indication: other (hypertension) Rate (beats per minute): 74 Rhythm: sinus rhythm Findings: + other (normal axis), + nonspecific-ST abn (in lead 3) and + T-wave inversion (septal) Comparison ECG Date: from (06/21/14) Change: the following changes noted (TWI in septal leads in new) Blood Pressure Blood Pressure Findings: Elevated blood pressure Blood Pressure Disposition: further management by hospitalist ANAT Narrative Patient is a 38-year-old male with a significant past medical history of IV drug abuse with a valve replacement and endocarditis along with mediastinitis who presents the ER for episode of sweating, dizziness lightheadedness with systolic blood pressures of 220 at home. He has been following with his PCP and increasing his metoprolol gradually from 50 mg twice daily to 75 mg twice daily. He also complains of a headache. EKG was obtained and in the anterior leads was slightly changed from previous. Labs show no significant leukocytosis or anemia. INR is unremarkable. BMP with mildly elevated glucose 122. Troponin was negative. Patient's blood pressure improved on its own to the 160. Blood pressure was not lowered any further as he started in the 220s at home. He notes he did feel better. CT head was unremarkable. Chest x-ray without focal infiltrate. Patient was updated bedside. Due to his complex history and EKG changes with his symptoms discussed with hospitalist for observation. Impression & Plan Hypertensive urgency, Dizziness, Hypertension, Lightheadedness, Acute electrocardiogram changes Discharge Plan Visit Data *Final* Discharge Date/Time: 11/12/18 20:42 Chief Complaint: Hypertension Stated Complaint: HIGH BP WITH CLEMENS, 240/120 PAST HR ED Provider: Benny Bartlett Discharge Problem: Hypertensive urgency, Dizziness, Hypertension, Lightheadedness, Acute electrocardiogram changes Patient Disposition: Admitted As Inpatient Discharge Instructions Interventions: ED Discharge Assessment Last Done: 11/12/18 20:42 The scribe's documentation has been prepared under my direction and personally reviewed by me in its entirety. I confirm that the note above accurately refle cts all work, treatment, procedures, and medical decision making performed by me.
[2018-11-13 04:00] LABS: Basophils # (auto) 0.02 K/uL (0-0.2); Basophils % (auto) 0.3 %; Eosinophils # (auto) 0.11 K/uL (0-0.5); Eosinophils % (auto) 1.8 %; Hematocrit (blood only) 40.9 % (42-52); Hemoglobin 14.6 g/dL (14.0-18.0); Immature Granulocytes # (auto) 0.02 K/uL (0.00-0.02); Immature Granulocytes % (auto) 0.3 %; Lymphocytes # (auto) 1.24 K/uL (1.2-3.4); Lymphocytes % (auto) 20.1 %; Mean Corpuscular Hgb Conc 35.7 g/dL (32-36); Mean Corpuscular Volume 82.3 fL (80-100); Mean Platelet Volume 8.6 fL (7.4-10.4); Monocytes # (auto) 0.43 K/uL (0.11-0.59); Neutrophils # (auto) 4.36 K/uL (1.4-6.5); Neutrophils % (auto) 70.5 %; Platelet Count 210 K/uL (130-400); RDW Coefficient of Variation 13.1 % (11.5-14.5); RDW Standard Deviation 39.4 fL (36.4-46.3); Red Blood Count 4.97 M/uL (4.7-6.1); White Blood Count 6.18 K/uL (4.8-10.8)
[2018-11-13 04:18] LABS: Alanine Aminotransferase 21 U/L (12-78); Albumin Level 3.6 gm/dl (3.4-5.0); Aspartate Aminotransferase 23 U/L (15-37); Blood Urea Nitrogen 9 mg/dl (7-18); Calcium 8.3 mg/dl (8.5-10.1); Carbon Dioxide 28 mmol/L (21-32); Chloride 106 mmol/L (98-107); Creatinine Clr Calc Pharmacy 113.8 ml/min; Est GFR (African American) 116.4; Est GFR (Non-African American) 100.4; Glucose 74 mg/dl (70-99); Magnesium 2.2 mg/dl (1.8-2.4); Potassium 4.6 mmol/L (3.5-5.1); Sodium 141 mmol/L (136-145)
[2018-11-13 04:23] LABS: Albumin Globulin Ratio 1.2 (0.9-2); Alkaline Phosphatase 77 U/L (45-117); Bilirubin,Total 0.6 mg/dl (0.2-1); Globulin 3.1 gm/dl (2.5-4.0); NT Pro B Type Natriuretic Pept 978 pg/ml (0-450); Total Protein 6.7 gm/dl (6.4-8.2); Troponin I < 0.015 ng/ml (0-0.045)
[2018-11-13] MEDS: LEVOTHYROXINE SODIUM 50 MCG TABLET PO SCH (05:38)
[2018-11-13] MEDS: GABAPENTIN 300 MG CAP PO SCH ×3 (08:15→20:15)
[2018-11-13] MEDS: ESCITALOPRAM OXALATE 20 MG TAB PO SCH (08:15)
[2018-11-13] MEDS: lamoTRIgine 100 MG TAB PO SCH (08:15)
[2018-11-13] MEDS: METOPROLOL TARTRATE 25 MG TAB PO SCH ×2 (08:15→20:15)
[2018-11-13] MEDS: PATIENT'S OWN CONTROLLED MED PO SCH (08:24)
[2018-11-13] MEDS: METHADONE ORAL SOLN 2 MG/ML PO SCH (08:24)
[2018-11-13] MEDS ORDERED: hydroCHLOROthiazide 25 MG TAB PO SCH (09:00)
[2018-11-13] MEDS ORDERED: hydroCHLOROthiazide 25 MG TAB PO ONE ×2 (09:30→17:45)
[2018-11-13] MEDS ORDERED: IBUPROFEN 600 MG TAB PO ONE (10:00)
--- NOTE | 2018-11-13 10:17 | Neurology Consultation ---
Date of Consultation November 13, 2018 Assessment & Plan (1) Hypertensive urgency: This patient's current headache is probably related to hypertensive urgency. His migraines are actually infrequent and he does not endorse any typical migraine associated symptoms such as nausea, photosensitivity, or sound sensitivity. Therefore, I expect his current headache to gradually improve with continued medical management of his hypertensive urgency. Of course, there may be some lag time between headache improvement and control of his hypertension. I do not think starting a preventive medication for migraine is really necessary for this patient at this time. Dr. Pa had considered the addition of topiramate to his regimen if his overall migraine frequency was significantly increase. Again, I do not think his current admission with hypertensive urgency would really qualify as a significant progression in his underlying migraines. If there is no medical contraindication, I think using a nonsteroidal anti- inflammatory such as Toradol or naproxen would be appropriate for acute headache management. (2) History of seizure: History of stable seizure disorder, last episode occurring about 9 months ago per patient. Previous assessments including MRI and EEG have been unremarkable, however. He should continue with his outpatient lamotrigine and gabapentin regimen. I do not have any further immediate recommendations for this issue. This patient may follow-up with Dr. Pa in the outpatient setting for ongoing management. History of Present Illness Reason for Consultation: "Migraine" Requesting Physician: Say Renae MD Attending Physician: Tao Aguayo History of Present Illness The patient is a 38-year old male who presented to the emergency department yesterday for evaluation and management of hypertension with report of blood pressure of 240/120. He been experiencing lightheadedness, diaphoresis, as well as a persistent headache with some associated neck pain. He denies experiencing any associated nausea or photosensitivity although he does have a history of migraines with episodes occurring about once every 1 or 2 months for which he uses Excedrin on occasion with fairly good results. He does not believe his current headache is similar to his migraines. The patient does follow with Dr. Pa for episodic migraine as well as a history of seizure disorder which has been stable and chronic intermittent low back pain. He reports that his last seizure occurred about 9 months ago, he has been compliant with lamotrigine and gabapentin. Prior to that, he thinks he is only had 2 other seizure-like episodes during his lifetime, with the initial episode occurring about 10 years ago. Seizures are the generalized type. Evaluations have included MRI of the brain and EEG which have been unremarkable. He had an MRI of his lumbar spine completed in the past as well which revealed mild disc degeneration at L4-5 and L5-S1. He had an unremarkable EMG without evidence of radiculopathy. Past medical history is also notable for substance abuse for which she is currently taking methadone. Allergies Allergy/AdvReac Type Severity Reaction Status Date / Time pollen extracts Allergy Mild . Verified 11/12/18 17:25 bupropion AdvReac Severe seizures Verified 11/12/18 17:25 varenicline AdvReac Severe SEIZURE Verified 11/12/18 17:25 Home Medications Home Medications Medication Instructions Recorded Confirmed Type cyclobenzaprine 10 mg tablet 10 mg PO TID PRN 04/11/18 11/12/18 History gabapentin 300 mg capsule 900 mg PO TID cap 04/11/18 11/12/18 History lamotrigine 200 mg tablet 200 mg PO QAM 04/11/18 11/12/18 History levothyroxine 50 mcg capsule 50 mcg PO QAM 04/11/18 11/12/18 History metoprolol tartrate 50 mg tablet 75 mg PO BID 04/11/18 11/12/18 History cephalexin 500 mg PO BID 11/12/18 11/12/18 History escitalopram oxalate 20 mg PO QAM 11/12/18 11/12/18 History gabapentin 600 mg PO TID 11/12/18 11/12/18 History hydrochlorothiazide 12.5 mg PO QAM 11/12/18 11/12/18 History ibuprofen 600 mg PO Q8H PRN 11/12/18 11/12/18 History lamotrigine 25 mg PO QPM 11/12/18 11/12/18 History lurasidone [Latuda] 30 mg PO HS 11/12/18 11/12/18 History methadone 102 mg PO DAILY 11/12/18 11/12/18 History ondansetron HCl 4 mg PO DIRECTED PRN 11/12/18 11/12/18 History Patient History Medical History Minor neurocognitive disorder (Chronic) History of endocarditis (Chronic) History of seizure (Chronic) Posttraumatic stress disorder (Chronic) History of nephrotic syndrome (Chronic) Hypothyroidism (Chronic) Fibromyalgia (Chronic) GERD (gastroesophageal reflux disease) (Chronic) Tobacco use (Chronic) Lumbar radiculopathy (Chronic) Bipolar disorder (Chronic) Hypertension (Chronic) Asthma (Chronic) Hernia (Resolved) Drug abuse (Inactive 01/07/13) Nephrotic syndrome (Resolved 01/07/13) Psoriasis (Chronic 01/07/13) Migraine (Chronic) Sternoclavicular separation (Resolved) Endocarditis (Resolved) Mediastinitis (Resolved) IV drug abuse (Inactive) Line sepsis (Resolved) "Candidemia due to PICC" Surgical History History of mitral valve repair (Chronic) Social History Preferred Language: Lao Manager Title Required: No Beliefs That Will Affect Care: None Current Living Situation: Family Current Living Situation Comment: parents Feels Safe at Home: Yes Safety Concerns: Feels Safe At This Time Smoking Status: Former smoker Hx Alcohol Use: No Hx Substance Use: No Review of Systems Constitutional: no fever and no chills Eyes: no blind spots and no diplopia Ear, Nose, Mouth, Throat: no ear pain and no tinnitus Respiratory: no cough and no dyspnea Cardiovascular: no chest pain and no palpitations Gastrointestinal: no abdominal pain and no vomiting Genitourinary: no dysuria and no urinary incontinence Musculoskeletal: no myalgia Recent surgery to the left foot for a bone chip/fracture which have been a chronic issue Integumentary: Psoriasis and alopecia Neurologic: no localized weakness and no loss of sensation Psychiatric: no depression and no anxiety Hematologic / Lymphatic: no easy bleeding and no easy bruising Physical Exam Physical Exam: The patient is a well-developed, well-nourished adult male. He is sitting comfortably in bed and in no acute distress. He is alert and fully oriented. Recent and remote memory intact. Attention and concentration normal. Patient exhibits a normal spontaneous speech pattern. He is able to name objects and repeat phrases. Patient exhibits an age-appropriate fund of knowledge and normal comprehension of vocabulary. Visual ratliff full to confrontation. Visual acuity normal. Pupils equal round reactive to light and accommodation. Eye movements normal. There is no nystagmus. Facial sensation intact. There is no facial droop or weakness. Hearing intact. Palate elevates to midline. Shoulder shrug intact. Tongue protrudes to midline. Sensation intact to all modalities in all 4 limbs. Deep tendon reflexes intact and symmetrical for the arms and legs bilaterally. Plantar responses downgoing bilaterally. There is no dysdiadochokinesia or dysmetria [id number] or [id number] bilaterally. Ophthalmoscopic examination reveals normal-appearing optic disks and posterior segments. No papilledema or hemorrhages. Carotid pulses normal bilaterally, no bruits to auscultation. Gait and station normal. Patient exhibits normal muscle strength and tone for all 4 limbs. No atrophy. No abnormal movements observed. Results & Data Vital Signs (Past 12 Hours) Vital Signs Temp Pulse Pulse Resp BP BP Pulse Ox 11/13/18 08:00 62 11/13/18 07:16 36.9 C 62 20 175/131 H 177/130 H 95 11/13/18 04:16 37.0 C 69 16 157/99 H 94 11/12/18 23:04 74 Laboratory Results WBC 6.18, hemoglobin 14.6, hematocrit 40.9, platelet count 210, sodium 141, potassium 4.6, BUN 9, creatinine 0.95, glucose 74, calcium 8.3, magnesium 2.2, troponin less than 0.[address] of the head completed yesterday was negative for hemorrhage or acute process. No parenchymal abnormality. No hydrocephalus. I reviewed the images and radiologist interpretation of this test. Electrocardiogram completed today reveals a normal sinus rhythm, 63 bpm. PG Care Time/CCT Total # of Minutes Spent Total Time Spent with Patient: Total time spent is greater than 50% in coordination of care (as documented) at patient's floor/unit and/or counseling patient:
--- NOTE | 2018-11-13 13:44 | Hospitalist Progress Note ---
Date of Service November 13, 2018 Assessment & Plan (1) Hypertensive urgency: - BP now slightly improved with increased dose of HCTZ; will continue to monitor. - Trop negative x 3; EKG with no evidence of ischemia. - Continue home Metoprolol 75 mg BID; Increased HCTZ to 25 mg daily. - Hydralazine 10 mg PO TID prn uncontrolled HTN. - Echo completed, results are pending. - Heart healthy, low sodium diet. (2) Chest pain: - Trop negative x 2; EKG negative for ischemia. - Will attempt to improve HTN over next 24 hours; low threshold for stress echo on 11/14/18. - Cardiac symptoms now improved. (3) Migraine: - Acute headache likely related to hypertensive urgency. - No indication for initiation of medication. (4) Bipolar disorder: - Continue home Lamictal and Lexapro as prescribed. (5) Hypothyroidism: - Continue Levothyroxine 50 mcg PO daily. - TSH ordered in the AM. (6) History of mitral valve repair: - Monitored as outpatient. (7) Fibromyalgia: - Continue home meds as prescribed. (8) GERD (gastroesophageal reflux disease): - Not currently on PPI. (9) Drug abuse: - H/o IV drug abuse; currently on Methadone, continue as prescribed. - Urine tox screen pending collection. (10) Psoriasis: - Monitored as outpatient. (11) History of seizure: - Last episode was 9 months ago. - Continue Gabapentin and Lamictal as prescribed. (12) DVT prophylaxis: - Lovenox q24hr. Dispo: Med/surg with tele; discharge likely on 11/14 pending improvement in BP and possible stress echo completion. Supervising Physician Co-Signing Physician Notes Attending Attestation - Chart reviewed in detail, care plan d/w BLACK Maravilla. I agree w/ the rivero components of her documentation. Agree with adjustments to BP meds. Treat headache - could be migraine. Consider secondary HTN work-up if BP remains resistant to meds. Tao Aguayo MD Subjective Pt. has a headache this morning -- likely related to HTN. Had chest tightness yesterday, denied SOB. Chest pain/tightness now resolved. Last BM was 4 days ago -- this is normal for patient. Review of Systems Review of Systems: All systems reviewed & are unremarkable except as noted in HPI & below Constitutional: no fever, no chills, no fatigue and no weakness Respiratory: no cough, no dyspnea, no dyspnea on exertion and no wheezing Cardiovascular: no chest pain, no palpitations and no edema Gastrointestinal: + constipation; no abdominal pain, no nausea and no vomiting Genitourinary: no difficulty urinating Musculoskeletal: no back pain and no joint pain Integumentary: no non-healing lesions Neurologic: + headache(s) Physical Exam Physical Exam: General: Resting comfortably HEENT: NC/AT; PERRLA with EOMI; [place] conjunctiva, MMM. No erythema of posterior pharynx Neck: Supple and nontender Cardiac: RRR Lungs: CTA bilaterally Abdomen: Bowel normoactive X 4; Nontender to palpation Extremities: Warm. No edema present Neuro: No focal weakness Skin: No rash Results & Data Vital Signs (Past 12 Hours) Vital Signs Temp Pulse Pulse Resp BP BP Pulse Ox 11/13/18 11:32 36.8 C 100 H 18 147/101 H 96 11/13/18 08:00 62 11/13/18 07:16 36.9 C 62 20 175/131 H 177/130 H 95 11/13/18 04:16 37.0 C 69 16 157/99 H 94 Laboratory Results 11/13/18 11/13/18 11/13/18 Range/Units 09:42 03:40 03:40 WBC 6.18 (4.8-10.8) K/uL RBC 4.97 (4.7-6.1) M/uL Hgb 14.6 (14.0-18.0) g/dL Hct 40.9 L (42-52) % MCV 82.3 (80-100) fL MCH 29.4 (25-34) pg MCHC 35.7 (32-36) g/dL RDW Std Deviation 39.4 (36.4-46.3) fL RDW Coeff of Nelida 13.1 (11.5-14.5) % Plt Count 210 (130-400) K/uL MPV 8.6 (7.4-10.4) fL Immature Gran % (Auto) 0.3 % Neut % (Auto) 70.5 % Lymph % (Auto) 20.1 % [place] % (Auto) 7.0 % Eos % (Auto) 1.8 % Baso % (Auto) 0.3 % Immature Gran # (Auto) 0.02 (0.00-0.02) K/uL Neut # (Auto) 4.36 (1.4-6.5) K/uL Lymph # (Auto) 1.24 (1.2-3.4) K/uL [place] # (Auto) 0.43 (0.11-0.59) K/uL Eos # (Auto) 0.11 (0-0.5) K/uL Baso # (Auto) 0.02 (0-0.2) K/uL PT (9.0-12.0) Seconds INR (0.9-1.1) Sodium 141 (136-145) mmol/L Potassium 4.6 (3.5-5.1) mmol/L Chloride 106 (98-107) mmol/L Carbon Dioxide 28 (21-32) mmol/L Anion Gap 7.0 (3-11) BUN 9 (7-18) mg/dl Creatinine 0.95 (0.6-1.4) mg/dl Est Cr Clr Drug Dosing 113.8 ml/min Est GFR ( Amer) 116.4 Est GFR (Non-Af Amer) 100.4 BUN/Creatinine Ratio 10.0 (10-20) Glucose 74 (70-99) mg/dl Calcium 8.3 L (8.5-10.1) mg/dl Magnesium 2.2 (1.8-2.4) mg/dl Total Bilirubin 0.6 (0.2-1) mg/dl AST 23 (15-37) U/L ALT 21 (12-78) U/L Alkaline Phosphatase 77 (45-117) U/L Troponin I < 0.015 < 0.015 (0-0.045) ng/ml NT-Pro-B Natriuret Pep 978 H (0-450) pg/ml Total Protein 6.7 (6.4-8.2) gm/dl Albumin 3.6 (3.4-5.0) gm/dl Globulin 3.1 (2.5-4.0) gm/dl Albumin/Globulin Ratio 1.2 (0.9-2) 11/12/18 11/12/18 11/12/18 Range/Units 21:37 18:45 17:43 WBC (4.8-10.8) K/uL RBC (4.7-6.1) M/uL Hgb (14.0-18.0) g/dL Hct (42-52) % MCV (80-100) fL MCH (25-34) pg MCHC (32-36) g/dL RDW Std Deviation (36.4-46.3) fL RDW Coeff of Nelida (11.5-14.5) % Plt Count (130-400) K/uL MPV (7.4-10.4) fL Immature Gran % (Auto) % Neut % (Auto) % Lymph % (Auto) % [place] % (Auto) % Eos % (Auto) % Baso % (Auto) % Immature Gran # (Auto) (0.00-0.02) K/uL Neut # (Auto) (1.4-6.5) K/uL Lymph # (Auto) (1.2-3.4) K/uL [place] # (Auto) (0.11-0.59) K/uL Eos # (Auto) (0-0.5) K/uL Baso # (Auto) (0-0.2) K/uL PT (9.0-12.0) Seconds INR (0.9-1.1) Sodium 137 (136-145) mmol/L Potassium 4.0 (3.5-5.1) mmol/L Chloride 101 (98-107) mmol/L Carbon Dioxide 29 (21-32) mmol/L Anion Gap 7.0 (3-11) BUN 12 (7-18) mg/dl Creatinine 1.20 (0.6-1.4) mg/dl Est Cr Clr Drug Dosing 90.1 ml/min Est GFR ( Amer) 87.8 Est GFR (Non-Af Amer) 75.7 BUN/Creatinine Ratio 9.6 L (10-20) Glucose 122 H (70-99) mg/dl Calcium 9.0 (8.5-10.1) mg/dl Magnesium (1.8-2.4) mg/dl Total Bilirubin 0.6 (0.2-1) mg/dl AST 23 (15-37) U/L ALT 23 (12-78) U/L Alkaline Phosphatase 84 (45-117) U/L Troponin I 0.019 < 0.015 (0-0.045) ng/ml NT-Pro-B Natriuret Pep (0-450) pg/ml Total Protein 7.6 (6.4-8.2) gm/dl Albumin 4.0 (3.4-5.0) gm/dl Globulin 3.6 (2.5-4.0) gm/dl Albumin/Globulin Ratio 1.1 (0.9-2) 11/12/18 11/12/18 Range/Units 17:43 17:43 WBC 6.92 (4.8-10.8) K/uL RBC 5.20 (4.7-6.1) M/uL Hgb 15.7 (14.0-18.0) g/dL Hct 42.8 (42-52) % MCV 82.3 (80-100) fL MCH 30.2 (25-34) pg MCHC 36.7 H (32-36) g/dL RDW Std Deviation 39.2 (36.4-46.3) fL RDW Coeff of Nelida 13.0 (11.5-14.5) % Plt Count 188 (130-400) K/uL MPV 8.8 (7.4-10.4) fL Immature Gran % (Auto) 0.1 % Neut % (Auto) 85.8 % Lymph % (Auto) 10.0 % [place] % (Auto) 3.0 % Eos % (Auto) 1.0 % Baso % (Auto) 0.1 % Immature Gran # (Auto) 0.01 (0.00-0.02) K/uL Neut # (Auto) 5.93 (1.4-6.5) K/uL Lymph # (Auto) 0.69 L (1.2-3.4) K/uL [place] # (Auto) 0.21 (0.11-0.59) K/uL Eos # (Auto) 0.07 (0-0.5) K/uL Baso # (Auto) 0.01 (0-0.2) K/uL PT 10.3 (9.0-12.0) Seconds INR 1.0 (0.9-1.1) Sodium (136-145) mmol/L Potassium (3.5-5.1) mmol/L Chloride (98-107) mmol/L Carbon Dioxide (21-32) mmol/L Anion Gap (3-11) BUN (7-18) mg/dl Creatinine (0.6-1.4) mg/dl Est Cr Clr Drug Dosing ml/min Est GFR ( Amer) Est GFR (Non-Af Amer) BUN/Creatinine Ratio (10-20) Glucose (70-99) mg/dl Calcium (8.5-10.1) mg/dl Magnesium (1.8-2.4) mg/dl Total Bilirubin (0.2-1) mg/dl AST (15-37) U/L ALT (12-78) U/L Alkaline Phosphatase (45-117) U/L Troponin I (0-0.045) ng/ml NT-Pro-B Natriuret Pep (0-450) pg/ml Total Protein (6.4-8.2) gm/dl Albumin (3.4-5.0) gm/dl Globulin (2.5-4.0) gm/dl Albumin/Globulin Ratio (0.9-2) PG Care Time/CCT Total # of Minutes Spent Total Time Spent with Patient: Total time spent is greater than 50% in coordination of care (as documented) at patient's floor/unit and/or counseling patient:
[2018-11-13] MEDS ORDERED: LISINOPRIL 5 MG TAB PO SCH (18:15)
[2018-11-13] MEDS: lamoTRIgine 25 MG TAB PO SCH (20:14)
[2018-11-13] MEDS: ENOXAPARIN INJ 40 MG/0.4 ML SYR SQ SCH (20:18)
[2018-11-13] MEDS: ACETAMINOPHEN 325 MG TAB PO PRN (20:25)
[2018-11-13] MEDS: HydrALAZINE 10 MG TAB PO PRN (22:31)
[2018-11-13] MEDS ORDERED: HydrALAZINE HCL 20 MG/ML VIAL IV STA (23:35)
--- NOTE | 2018-11-13 23:41 | Progress Note ---
Date of Service November 13, 2018 Received a text page from the patient's nurse that his blood pressure is presently 199/148 with a heart rate of 65. Also was noted to have a severe headache since noon earlier this morning. He just received hydralazine 10 mg p.o. about an hour ago. No reported concurrent chest pain. On brief review of his chart, patient was admitted for hypertensive urgency. Initial blood pressures were much lower than this. He is being treated with metoprolol, hydrochlorothiazide, lisinopril, and as needed doses of hydralazine. He was also seen by neurology for this hypertensive urgency and is related headaches/migraines. Discussed case with Dr. Dang: - For now, will attempt further lowering with a single additional dose of hy dralazine 10 mg IV. - Given his borderline bradycardia, further use of beta-blockers or calcium channel blockers may be difficult. May need to consider nicardipine if BP remains persistently elevated. Francisco Lovelace, PGY3 Overnight call Results & Data Vital Signs (Past 12 Hours) Vital Signs Temp Pulse Pulse Resp BP Pulse Ox 11/13/18 23:00 36.8 C 67 20 194/141 H 95 11/13/18 22:55 200/114 H 11/13/18 19:59 36.8 C 81 18 195/114 H 100 11/13/18 16:00 57 L 11/13/18 15:04 36.7 C 74 18 164/101 H 97
[2018-11-13] MEDS ORDERED: HydrALAZINE HCL 20 MG/ML VIAL ONE (23:43)
[2018-11-14] MEDS: ACETAMINOPHEN 325 MG TAB PO PRN ×3 (01:45→13:28)
[2018-11-14] MEDS: LEVOTHYROXINE SODIUM 50 MCG TABLET PO SCH (06:00)
[2018-11-14] MEDS: ESCITALOPRAM OXALATE 20 MG TAB PO SCH (08:09)
[2018-11-14] MEDS: METOPROLOL TARTRATE 25 MG TAB PO SCH ×2 (08:09→20:43)
[2018-11-14] MEDS: hydroCHLOROthiazide 25 MG TAB PO SCH (08:09)
[2018-11-14] MEDS: lamoTRIgine 100 MG TAB PO SCH (08:09)
[2018-11-14] MEDS: GABAPENTIN 300 MG CAP PO SCH ×3 (08:10→20:45)
[2018-11-14] MEDS: METHADONE ORAL SOLN 2 MG/ML PO SCH (08:11)
[2018-11-14] MEDS: PATIENT'S OWN CONTROLLED MED PO SCH (08:14)
[2018-11-14 08:55] LABS: Basophils # (auto) 0.02 K/uL (0-0.2); Basophils % (auto) 0.2 %; Eosinophils # (auto) 0.22 K/uL (0-0.5); Eosinophils % (auto) 2.7 %; Hematocrit (blood only) 47.1 % (42-52); Hemoglobin 17.4 g/dL (14.0-18.0); Immature Granulocytes # (auto) 0.03 K/uL (0.00-0.02); Immature Granulocytes % (auto) 0.4 %; Lymphocytes % (auto) 19.4 %; Mean Corpuscular Hgb Conc 36.9 g/dL (32-36); Mean Corpuscular Volume 81.1 fL (80-100); Mean Platelet Volume 8.9 fL (7.4-10.4); Monocytes # (auto) 0.65 K/uL (0.11-0.59); Monocytes % (auto) 7.9 %; Neutrophils # (auto) 5.72 K/uL (1.4-6.5); Neutrophils % (auto) 69.4 %; Platelet Count 234 K/uL (130-400); RDW Coefficient of Variation 13.1 % (11.5-14.5); RDW Standard Deviation 38.2 fL (36.4-46.3); Red Blood Count 5.81 M/uL (4.7-6.1); White Blood Count 8.24 K/uL (4.8-10.8)
[2018-11-14 08:56] LABS: Albumin Level 4.5 gm/dl (3.4-5.0); BUN Creatinine Ratio 9.9 (10-20); Calcium 9.9 mg/dl (8.5-10.1); Creatinine Clr Calc Pharmacy 95.4 ml/min; Est GFR (African American) 96.4; Est GFR (Non-African American) 83.2; Potassium 3.9 mmol/L (3.5-5.1)
[2018-11-14] MEDS ORDERED: LISINOPRIL 10 MG TAB PO SCH (09:00)
[2018-11-14] MEDS ORDERED: hydroCHLOROthiazide 25 MG TAB PO SCH ×2 (09:00)
[2018-11-14 09:05] LABS: Albumin Globulin Ratio 1.1 (0.9-2); Bilirubin,Total 0.8 mg/dl (0.2-1); Globulin 3.9 gm/dl (2.5-4.0); Total Protein 8.4 gm/dl (6.4-8.2)
[2018-11-14 09:29] LABS: Appearance Urine Clear (Clear); Bilirubin Urine Negative (Negative); Blood Urine Negative (Negative); Color Urine Yellow; Glucose Urine UA Negative (Negative); Ketones Urine Negative (Negative); Leukocyte Esterase Urine Negative (Negative); Nitrite Urine Negative (Negative); Protein Urine Negative (Negative); Specific Gravity Urine 1.014 (1.000-1.030); Urobilinogen Urine Negative (Negative)
[2018-11-14 09:47] LABS: Amphetamines+Metham, Urine Neg (Neg); Barbiturates, Urine Neg (Neg); Benzodiazepine, Urine Neg (Neg); Cocaine, Urine Neg (Neg); MDMA (Ecstacy), Urine Neg (Neg); Methadone, Urine Pos (Neg); Opiate, Urine Neg (Neg); Phencyclidine, Urine Neg (Neg)
--- NOTE | 2018-11-14 12:17 | Hospitalist Progress Note ---
Date of Service November 14, 2018 Assessment & Plan (1) Hypertensive urgency: - BP remains elevated with very minimal improvement. - Continue home Metoprolol 75 mg BID; Increased home HCTZ to 25 mg daily. - Added Lisinopril 5 mg daily, increased to 10 mg daily this morning; will add 10 mg this evening and start 20 PO daily on 11/15 as BP remains elevated. - Hydralazine 10 mg PO TID prn. - Will order medical marijuana -- may aid in anxiety/uncontrolled HTN, pt. uses daily at home due to h/o PTSD. - Complete secondary HTN work up (does have history of nephrotic syndrome from age [age], on chronic steroids) -- Renin & Aldosterone level pending; renal artery duplex was negative for stenosis. - Heart healthy, low sodium diet. (2) Chest pain: - Trop negative x 2; EKG negative for ischemia. - Echo with preserved EF, post mitral valve annuloplasty ring repair with moderate mitral stenosis, trace MR. - No evidence of acute chest pain at this time -- consider stress echo following improvement in BP if symptoms are recurrent. (3) Migraine: - Acute headache likely related to hypertensive urgency. - No indication for initiation of medication. (4) Bipolar disorder: - Continue home Lamictal and Lexapro as prescribed. (5) Hypothyroidism: - Continue Levothyroxine 50 mcg PO daily. - TSH was 3.360. 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 (7) Fibromyalgia: - Continue home meds as prescribed. (8) GERD (gastroesophageal reflux disease): - Not currently on PPI. (9) Drug abuse: - H/o IV drug abuse; currently on Methadone, continue as prescribed. - Urine tox screen positive for Methadone and Marijuana. - Pt. has medical marijuana card -- will place order to allow marijuana use at inpatient (with exception of vape), may aid in anxiety/improving HTN. (10) Psoriasis: - Monitored as outpatient. (11) History of seizure: - Last episode was 9 months ago. - Continue Gabapentin and Lamictal as prescribed. (12) DVT prophylaxis: - Lovenox q24hr. Dispo: Med/surg with tele; discharge pending improvement in uncontrolled HTN. Supervising Physician Co-Signing Physician Notes Attending Attestation - Chart reviewed in detail, care plan d/w BLACK Maravilla. I agree w/ the rivero components of her documentation. Agree with increase in lisinopril. Renal artery dopplers negative for ARTIS. Renin/cristóbal levels sent. Has severe snoring by history - SIERRA could contribute to chronic headaches, fatigue, and BP issues - needs outpatient sleep study. Treat headache symptomatically. Agree anxiety could be contributing to BP issues as well. Tao Aguayo MD Subjective Increased HTN overnight -- received Hydralazine IV with some improvement. He continues to have a headache related to HTN, was rated as a 7/10 on pain scale this morning. States he also feels very anxious; uses daily medical marijuana at home, has not been receiving here. BP remains elevated this morning. He denies work up for secondary HTN, will complete as inpatient. Review of Systems Review of Systems: All systems reviewed & are unremarkable except as noted in HPI & below Constitutional: no fever, no chills, no fatigue and no weakness Respiratory: no cough, no dyspnea, no dyspnea on exertion and no wheezing Cardiovascular: no chest pain, no palpitations and no edema Gastrointestinal: no abdominal pain, no nausea and no constipation Genitourinary: no difficulty urinating Musculoskeletal: no back pain and no joint pain Integumentary: no non-healing lesions Neurologic: + headache(s) Psychiatric: + anxiety Physical Exam Physical Exam: General: Appears mildly anxious on exam. HEENT: NC/AT; PERRLA with EOMI; [place] conjunctiva, MMM. No erythema of posterior pharynx Neck: Supple and nontender Cardiac: RRR Lungs: CTA bilaterally Abdomen: Bowel normoactive X 4; Nontender to palpation Extremities: Warm. No edema present Neuro: No focal weakness Skin: No rash Results & Data Vital Signs (Past 12 Hours) Vital Signs Temp Pulse Pulse Resp BP BP Pulse Ox 11/14/18 11:35 36.6 C 70 18 146/108 H 96 11/14/18 09:00 65 11/14/18 07:11 37.0 C 76 18 155/115 H 97 11/14/18 03:48 36.9 C 74 20 121/75 96 11/14/18 01:00 58 L 11/14/18 00:38 65 204/79 H Laboratory Results 11/14/18 11/14/18 11/14/18 Range/Units 09:20 09:20 09:20 WBC (4.8-10.8) K/uL RBC (4.7-6.1) M/uL Hgb (14.0-18.0) g/dL Hct (42-52) % MCV (80-100) fL MCH (25-34) pg MCHC (32-36) g/dL RDW Std Deviation (36.4-46.3) fL RDW Coeff of [place] (11.5-14.5) % Plt Count (130-400) K/uL MPV (7.4-10.4) fL Immature Gran % (Auto) % Neut % (Auto) % Lymph % (Auto) % [place] % (Auto) % Eos % (Auto) % Baso % (Auto) % Immature Gran # (Auto) (0.00-0.02) K/uL Neut # (Auto) (1.4-6.5) K/uL Lymph # (Auto) (1.2-3.4) K/uL Jerome # (Auto) (0.11-0.59) K/uL Eos # (Auto) (0-0.5) K/uL Baso # (Auto) (0-0.2) K/uL Sodium (136-145) mmol/L Potassium (3.5-5.1) mmol/L Chloride (98-107) mmol/L Carbon Dioxide (21-32) mmol/L Anion Gap (3-11) BUN (7-18) mg/dl Creatinine (0.6-1.4) mg/dl Est Cr Clr Drug Dosing ml/min Est GFR ( Amer) Est GFR (Non-Af Amer) BUN/Creatinine Ratio (10-20) Glucose (70-99) mg/dl Calcium (8.5-10.1) mg/dl Total Bilirubin (0.2-1) mg/dl AST (15-37) U/L ALT (12-78) U/L Alkaline Phosphatase (45-117) U/L Total Protein (6.4-8.2) gm/dl Albumin (3.4-5.0) gm/dl Globulin (2.5-4.0) gm/dl Albumin/Globulin Ratio (0.9-2) TSH (0.300-4.500) uIu/ml Urine Color Yellow Urine Appearance Clear (Clear) Urine pH 8.0 H (4.5-7.5) Ur Specific [place] 1.014 (1.000-1.030) Urine Protein Negative (Negative) Urine Glucose (UA) Negative (Negative) Urine Ketones Negative (Negative) Urine Blood Negative (Negative) Urine Nitrite Negative (Negative) Urine Bilirubin Negative (Negative) Urine Urobilinogen Negative (Negative) Ur Leukocyte Esterase Negative (Negative) Urine Opiates Screen Neg (Neg) Ur Methadone, Qual Pos H (Neg) U Methadone Metabolites Pending Ur Methadone Confirm Pending Urine Barbiturates Neg (Neg) Ur Phencyclidine (PCP) Neg (Neg) U Amphetamin/Meth Scrn Neg (Neg) MDMA (Ecstasy) Screen Neg (Neg) U Benzodiazepines Scrn Neg (Neg) Ur Cocaine Metabolite Neg (Neg) U Marijuana (THC) Screen Pos H (Neg) U Marijuana THC Carboxy Pending 11/14/18 11/14/18 Range/Units 07:55 07:55 WBC 8.24 (4.8-10.8) K/uL RBC 5.81 (4.7-6.1) M/uL Hgb 17.4 (14.0-18.0) g/dL Hct 47.1 (42-52) % MCV 81.1 (80-100) fL MCH 29.9 (25-34) pg MCHC 36.9 H (32-36) g/dL RDW Std Deviation 38.2 (36.4-46.3) fL RDW Coeff of [place] 13.1 (11.5-14.5) % Plt Count 234 (130-400) K/uL MPV 8.9 (7.4-10.4) fL Immature Gran % (Auto) 0.4 % Neut % (Auto) 69.4 % Lymph % (Auto) 19.4 % Jerome % (Auto) 7.9 % Eos % (Auto) 2.7 % Baso % (Auto) 0.2 % Immature Gran # (Auto) 0.03 H (0.00-0.02) K/uL Neut # (Auto) 5.72 (1.4-6.5) K/uL Lymph # (Auto) 1.60 (1.2-3.4) K/uL Jerome # (Auto) 0.65 H (0.11-0.59) K/uL Eos # (Auto) 0.22 (0-0.5) K/uL Baso # (Auto) 0.02 (0-0.2) K/uL Sodium 139 (136-145) mmol/L Potassium 3.9 D (3.5-5.1) mmol/L Chloride 103 (98-107) mmol/L Carbon Dioxide 28 (21-32) mmol/L Anion Gap 8.0 (3-11) BUN 11 (7-18) mg/dl Creatinine 1.11 (0.6-1.4) mg/dl Est Cr Clr Drug Dosing 95.4 ml/min Est GFR ( Amer) 96.4 Est GFR (Non-Af Amer) 83.2 BUN/Creatinine Ratio 9.9 L (10-20) Glucose 79 (70-99) mg/dl Calcium 9.9 D (8.5-10.1) mg/dl Total Bilirubin 0.8 (0.2-1) mg/dl AST 28 (15-37) U/L ALT 27 (12-78) U/L Alkaline Phosphatase 92 (45-117) U/L Total Protein 8.4 H D (6.4-8.2) gm/dl Albumin 4.5 (3.4-5.0) gm/dl Globulin 3.9 (2.5-4.0) gm/dl Albumin/Globulin Ratio 1.1 (0.9-2) TSH 3.360 (0.300-4.500) uIu/ml Urine Color Urine Appearance (Clear) Urine pH (4.5-7.5) Ur Specific [place] (1.000-1.030) Urine Protein (Negative) Urine Glucose (UA) (Negative) Urine Ketones (Negative) Urine Blood (Negative) Urine Nitrite (Negative) Urine Bilirubin (Negative) Urine Urobilinogen (Negative) Ur Leukocyte Esterase (Negative) Urine Opiates Screen (Neg) Ur Methadone, Qual (Neg) U Methadone Metabolites Ur Methadone Confirm Urine Barbiturates (Neg) Ur Phencyclidine (PCP) (Neg) U Amphetamin/Meth Scrn (Neg) MDMA (Ecstasy) Screen (Neg) U Benzodiazepines Scrn (Neg) Ur Cocaine Metabolite (Neg) U Marijuana (THC) Screen (Neg) U Marijuana THC Carboxy PG Care Time/CCT Total # of Minutes Spent Total Time Spent with Patient: Total time spent is greater than 50% in coordination of care (as documented) at patient's floor/unit and/or counseling patient:
--- NOTE | 2018-11-14 14:25 | Ultrasound Report ---
DOPPLER ULTRASOUND OF THE RENAL ARTERIES CLINICAL HISTORY: Hypertension. COMPARISON STUDY: None TECHNIQUE: Doppler sonography of the renal arteries was performed to assess renal artery stenosis. Im ages are reviewed in the transverse and longitudinal planes. FINDINGS: Velocity characteristics and resistive indices are within normal limits bilaterally. No ultrasonic ev idence for renal arterial stenosis present. No evidence for hydronephrosis. IMPRESSION: There is no sonographic evidence of renal artery stenosis. Electronically signed by: Vishal Álvarez M.D. 11/14/2018 2:24 PM
[2018-11-14] MEDS ORDERED: IBUPROFEN 600 MG TAB PO ONE (16:50)
[2018-11-14] MEDS ORDERED: MEDICAL MARIJUANA PO PRN (17:43)
[2018-11-14] MEDS ORDERED: LISINOPRIL 10 MG TAB PO ONE (18:00)
[2018-11-14] MEDS: HydrALAZINE 10 MG TAB PO PRN ×2 (18:05→20:46)
[2018-11-14] MEDS: lamoTRIgine 25 MG TAB PO SCH (20:42)
[2018-11-14] MEDS: ENOXAPARIN INJ 40 MG/0.4 ML SYR SQ SCH (21:24)
[2018-11-15] MEDS: LEVOTHYROXINE SODIUM 50 MCG TABLET PO SCH (05:49)
[2018-11-15 07:02] LABS: BUN Creatinine Ratio 11.5 (10-20); Calcium 9.4 mg/dl (8.5-10.1); Creatinine Clr Calc Pharmacy 91.7 ml/min; Est GFR (African American) 92.4; Est GFR (Non-African American) 79.7; Potassium 4.3 mmol/L (3.5-5.1)
[2018-11-15] MEDS: METHADONE ORAL SOLN 2 MG/ML PO SCH (07:48)
[2018-11-15] MEDS: PATIENT'S OWN CONTROLLED MED PO SCH (07:49)
[2018-11-15] MEDS: GABAPENTIN 300 MG CAP PO SCH ×2 (07:50→13:47)
[2018-11-15] MEDS: METOPROLOL TARTRATE 25 MG TAB PO SCH (07:50)
[2018-11-15] MEDS: ESCITALOPRAM OXALATE 20 MG TAB PO SCH (07:52)
[2018-11-15] MEDS: lamoTRIgine 100 MG TAB PO SCH (07:52)
[2018-11-15] MEDS: hydroCHLOROthiazide 25 MG TAB PO SCH (07:52)
[2018-11-15] MEDS: ACETAMINOPHEN 325 MG TAB PO PRN (07:52)
[2018-11-15] MEDS ORDERED: LISINOPRIL 20 MG TAB PO SCH (09:00)
[2018-11-15] MEDS ORDERED: PROCHLORPERAZINE 10 MG in SYRINGE 8 ML IV ONE (09:26)
[2018-11-15] MEDS ORDERED: KETOROLAC TROMETHAMINE 15 MG/ML VIAL IV ONE (09:26)
[2018-11-15] MEDS: HydrALAZINE 10 MG TAB PO PRN (10:56)
[2018-11-15] MEDS ORDERED: LURASIDONE HCL 40 MG TAB PO SCH (12:30)
[2018-11-15] MEDS ORDERED: methylPREDNISolone 4 MG TAB, 6 DAY TAPER PO SCH (16:30)
[2018-11-15] MEDS ORDERED: BUTALBITAL/ACETAMIN/CAFFEINE TAB PO STA (16:34)
--- NOTE | 2018-11-15 17:07 | Discharge Summary ---
Date of Service November 15, 2018 Admission HPI Per Admitting Provider Patient is a 38 years old male with past medical history of hypertension, psoriasis, depression, open heart surgery, hypothyroidism, mitral valve repair, fibromyalgia, migraine headache, presents to the emergency room with a complaint of tightness in his chest and sweating that started this morning and it was associated with elevated blood pressure to 240/100. Patient said that in the morning he usually takes his methadone because he is in the program of weaning from the IV drug abuse and he was not doing anything in particular a physically strenuous but started to feel profuse sweating and tightness. Patient reports that prior to this event he did consume a large amount of of foods containing carbohydrates and sweets and then he started to feel sweaty and almost passed out. Surgery of the Gris was done in 2012 in . Patient also said that in the past several days he has persistent migraine headache and that he is Dr. try to help him increasing metoprolol but this time that did not help. After patient arrived in the emergency room his blood pressure improved and it was 166/107 and 152/98. Patient was given aspirin 324 p.o. in the ER and Zofran 4 mg IV, he also received 2 L of fluid. Labs were reviewed white blood cell count of 6.92, hemoglobin 15.7, hematocrit 42.8, platelets 188, INR 1.0, PT of 10.3, sodium 137, potassium of 4, chloride 101 anion gap 7 BUN 12 creatinine 1.2 GFR 90.1 BUN/creatinine ratio 9.6, AST 23 ALT 23 alkaline phosphatase 84 troponin 0 0.015. EKG significant for normal sinus rhythm, T wave inversion. When compared with the previous EKG on November 12, 2018. No significant changes found from 10. Chest x-rays: Prostatic aortic valve, mild cardiomegaly, no acute cardiopulmonary disease. Head CT no acute intracranial abnormality. Admission Exam Per Admitting Provider Constitutional: WD/WN, vitals as above well developed and + obese Eyes: PERRL, conjunctivae normal, anicteric sclerae ENMT: external ear and nose normal, oropharynx normal Neck: trachea midline, no thyromegaly Respiratory: normal respiratory effort, lungs clear to auscultation Cardiovascular: Heart Sounds: normal S1, normal S2 and + murmur Chest (Breasts): normal inspection/palpation of breasts Gastrointestinal (Abdomen): normal bowel sounds, soft, nontender, no hepatosplenomegaly Musculoskeletal: no cyanosis or clubbing, extremities motor strength 5/5 Skin: no rashes, warm and dry Neurologic: patellar DTR's 2+ bilat, sensation intact Psychiatric: A+Ox3, euthymic affect Genitourinary: no testicular masses, no penis abnormality Lymphatic: no cervical or axillary lymphadenopathy Principal Diagnosis Hypertensive Urgency Discharge Exam General: Appears mildly anxious on exam. HEENT: NC/AT; PERRLA with EOMI; [place] conjunctiva, MMM. No erythema of posterior pharynx Neck: Supple and nontender Cardiac: RRR Lungs: CTA bilaterally Abdomen: Bowel normoactive X 4; Nontender to palpation Extremities: Warm. No edema present Neuro: No focal weakness Skin: No rash Discharge Data Allergies Allergy/AdvReac Type Severity Reaction Status Date / Time pollen extracts Allergy Mild . Verified 11/12/18 17:25 bupropion AdvReac Severe seizures Verified 11/12/18 17:25 varenicline AdvReac Severe SEIZURE Verified 11/12/18 17:25 Consultations 11/12/18 18:28 ED Decision to Admit Stat 11/12/18 20:56 Consult Neurology Routine Ordered Studies 11/12/18 16:37 CT head/brain wo con Stat CXR 11/14/18 09:00 US duplex renal artery Routine Hospital Course (1) Hypertensive urgency: BP was significantly elevated at beginning of admission, now improving but remains elevated with SBP >140 and DBP >110 at times. Continued home Metoprolol 75 mg BID; Increased home HCTZ to 25 mg daily. Added Lisinopril 5 mg daily, increased to 10 mg daily on 11/14; increased to 20 mg daily on 11/15/18. Hydralazine was ordered prn; will give script at discharge for Hydralazine 25 mg PO TID prn SBP >180. Pt. was very anxious; he uses medical marijuana at home but has not received during this admission. Anxiety is likely related to uncontrolled HTN; we believe he would benefit from his home setting. Secondary HTN work up: renal artery duplex negative for stenosis; renin and aldosterone levels pending. TSH was WNL. Will need outpt sleep study. Encouraged heart healthy, low sodium diet. Will need close follow up with PCP. (2) Chest pain: Trop negative x 2; EKG negative for ischemia. Echo with preserved EF, post mitral valve annuloplasty ring repair with moderate mitral stenosis, trace MR. No evidence of acute chest pain at this time -- no indication for stress echo. (3) Migraine: Had ongoing H/A during this admission; no improvement in H/A after BP trended down. Received Ibuprofen with no improvement. Had Toradol/Compazine on 11/15 in the AM with slight benefit. Will start Medrol dose duncan and give dose of Fioricet prior to discharge. Neuro was also consulted; did not recommend initiation of medication. Triptans contraindicated due to hypertension. (4) Bipolar disorder: Continued home Lamictal and Lexapro as prescribed. (5) Hypothyroidism: Continued Levothyroxine 50 mcg PO daily. TSH was 3.360. 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 (7) Fibromyalgia: Continued home meds as prescribed. (8) GERD (gastroesophageal reflux disease): Not currently on PPI. (9) Drug abuse: H/o IV drug abuse; currently on Methadone, continued as prescribed. Urine tox screen positive for Methadone and Marijuana. Pt. has medical marijuana card -- placed order to allow marijuana use at inpatient (with exception of vape), may aid in anxiety/improving HTN. Pt. did not have a family member to brain picker med at dispensary and bring in as inpt. Will resume medical marijuana use at home. (10) Psoriasis: Monitored as outpatient. (11) History of seizure: Last episode was 9 months ago. Continued Gabapentin and Lamictal as prescribed. (12) DVT prophylaxis: Lovenox q24hr. Pt. was stable for discharge to home on 11/15/18. Total Time Total Time Spent Total Time Spent (In Minutes): >30 minutes Total Time Includes: Examination of the Patient, Discharge Planning, Medication Reconciliation, Communication With Other Providers and Other Discharge Plan Discharge Items Patient Disposition: Home - Self-Care Reason For Visit: HYPERTENSIVE URGENCY Discharge Diagnosis: Hypertensive Urgency Condition: Good Discharge Goals: Decrease discomfort, Improve disease control, Improve function, Increase independence, Improve nutritional status and Prevent disease Activity: As commented below Exercise/Sports: Gradually increase as tolerated Non-emergency contact: Primary Care Provider Call non-emergency contact if: you have any medication questions, your symptoms worsen, your pain is not controlled, your pain is worsening, your pain is unusual for you, your pain is concerning for you and you have a fever Follow-up/Referrals: Tao Verma MD [Primary Care Provider] - 11/27/18 11:30 am (A follow up appt. has been arranged with BLACK Reynolds for 11/27 at 11:30am.) Diet: Regular and Low Sodium (2gm) Addtl Provider Instructions: 1. Hypertension * Continue Metoprolol 75 mg twice daily as prescribed. * HCTZ has been increased from 12.5 mg to 25 mg daily. * Lisinopril 20 mg daily has also been added. * Please take a Medrol dose duncan at home as directed. * You may take Hydralazine 25 mg every 8 hours for systolic blood pressure >180. Please call your doctor if your blood pressure remains elevated following doses of usual home medications and additional Hydralazine dose. * Please continue a low sodium (<2 gm per day) diet at home. * Monitor blood pressure intermittently at home; please record all readings and bring to your next PCP appointment. * You will need an outpatient sleep study -- concern for obstructive sleep apnea in setting of HTN. * You will need to follow up with your PCP to discuss additional tests for HTN and medication management. Prescriptions: New lisinopril 20 mg Tablet 20 mg PO QAM 30 Days Qty: 30 RF: 2 hydrochlorothiazide 25 mg Tablet 25 mg PO QAM 30 Days Qty: 30 RF: 2 methylprednisolone [Medrol (Duncan)] 4 mg tablets,dose pack 4 mg PO DAILY Qty: 21 RF: 0 hydralazine 25 mg tablet 25 mg PO TID PRN (Reason: HTN) Qty: 10 RF: 0 Continued cyclobenzaprine 10 mg tablet 10 mg PO TID PRN (Reason: Muscle Spasm) RF: 0 gabapentin 300 mg capsule 900 mg PO TID RF: 0 lamotrigine [Lamictal] 200 mg tablet 200 mg PO QAM RF: 0 levothyroxine 50 mcg capsule 50 mcg PO QAM RF: 0 metoprolol tartrate [Lopressor] 50 mg tablet 75 mg PO BID RF: 0 gabapentin 600 mg tablet 600 mg PO TID RF: 0 ondansetron HCl 4 mg tablet 4 mg PO DIRECTED PRN (Reason: Nausea) RF: 0 lamotrigine 25 mg tablet 25 mg PO QPM RF: 0 ibuprofen 600 mg tablet 600 mg PO Q8H PRN (Reason: Pain) RF: 0 escitalopram oxalate 20 mg tablet 20 mg PO QAM RF: 0 Latuda 20 mg tablet 30 mg PO HS RF: 0 methadone 10 mg/mL Concentrate 102 mg PO DAILY RF: 0 Discontinued cephalexin 500 mg capsule 500 mg PO BID RF: 0 hydrochlorothiazide 12.5 mg tablet 12.5 mg PO QAM RF: 0 Stand-Alone Forms: [facility] Discharge Orders: Discharge Order (Routine); Ordered 11/15/18 Ordered By: Anne Maravilla Admission Data Admit Date/Time: 11/14/18 09:01 Attending Provider: Tao Aguayo Admit Provider: Say Renae Primary Care Provider: Tao Verma Other Providers: Josafat Do Service: Telemetry Medical Other Interventions: Discharge Summary Assessment (RN) Last Done: 11/15/18 17:43 Pending Studies at Discharge: No DC Date/Time DO NOT enter until pt leaves facility: 11/15/18 18:15 Supervising Physician Co-Signing Physician Notes Attending Attestation and Discharge Note: Patient seen/examined, chart reviewed in detail, care plan d/w PA Anne Maravilla. I agree w/ the rivero components of her discharge documentation. Patient admitted for hypertensive urgency. Multiple dose adjustments and BP med additions made during the stay as outlined in Ms Maravilla's note. BPs markedly improved while hospitalized - SBPs were initially >200, improving to 140s at d/c. Secondary work-up to date was negative. Renin/cristóbal levels sent. Has severe snoring by history - SIERRA could contribute to chronic headaches, fatigue, and BP issues - needs outpatient sleep study. Has TMJ syndrome - recently got bite block for sleep. Cannot rule out that lack of access to chronic THC while hospitalized and anxiety were contributing to BP issues. Discharge exam- gen - very anxious, no acute distress however HEENT - tender/clunking with over TMJs b/l with opening/closing jaw neck - no JVD heart - RRR, s1 s2 lungs - CTA b/l abd - soft NT ND BS+; no HSM ext - no edema needs close f/u with Dr Verma post-d/c. Tao Aguayo MD
[2018-11-15] MEDS ORDERED: methylPREDNISolone 4 MG TAB PO SCH (18:00)
[2018-11-16] MEDS ORDERED: methylPREDNISolone 4 MG TAB PO SCH ×2 (07:00→21:00)
[2018-11-16 13:07] LABS: Marijuana Quant, GCMS Urine 976 NG/ML (CUTOFF=5); Methadone, Ur Metabolite 10600 NG/ML (CUTOFF=100)
[2018-11-17] MEDS ORDERED: methylPREDNISolone 4 MG TAB PO SCH (07:00)
[2018-11-18] MEDS ORDERED: methylPREDNISolone 4 MG TAB PO SCH (07:00)
[2018-11-19] MEDS ORDERED: methylPREDNISolone 4 MG TAB PO SCH (07:00)
[2018-11-20] MEDS ORDERED: methylPREDNISolone 4 MG TAB PO SCH (07:00)
== END 2018-11-15 18:15 | disposition home or self-care (01) | DRG 305 ==
LOC: 2N 16:11 → ED 16:11 → SUATTDRO 20:06 → 2N 20:42
DX: G43.909 Migraine, unspecified, not intractable, without status migrainosus; Z87.891 Personal history of nicotine dependence; R07.9 Chest pain, unspecified; E03.9 Hypothyroidism, unspecified; F41.9 Anxiety disorder, unspecified; G89.29 Other chronic pain; M79.7 Fibromyalgia; G40.909 Epilepsy, unspecified, not intractable, without status epilepticus; Z87.441 Personal history of nephrotic syndrome; Z91.048 Other nonmedicinal substance allergy status; Z79.899 Other long term (current) drug therapy; Z88.8 Allergy status to other drugs, medicaments and biological substances; I10 Essential (primary) hypertension; F11.10 Opioid abuse, uncomplicated; Z95.2 Presence of prosthetic heart valve; F31.9 Bipolar disorder, unspecified; I16.0 Hypertensive urgency; F43.10 Post-traumatic stress disorder, unspecified; M54.9 Dorsalgia, unspecified

== ENCOUNTER 2024-07-12 22:54 | Inpatient (IN) ==
--- NOTE | 2024-07-13 00:20 | Emergency Department Note ---
Impression & Plan Alcohol intoxication, Hypophosphatemia Admit to the [facility] ED Provider Note NAME: HERMELINDA RSOAS II AGE: 44 SEX: Male INFORMANT: Patient ED PROVIDER(S): Estrella Romero DO CHIEF COMPLAINT: alcohol withdrawal PLAN: Disposition: admit to the [facility] MEDICAL DECISION MAKING: this is a 44-year-old male patient who presents to the emergency department requesting detox from alcohol. The patient has been trying to do it by himself at home but has not been feeling well. He has a history of previous seizures and is concerned that he may have an alcohol withdrawal seizure if he continues at home. He explains that his "life mangers" (2 therapists and his psychiatrist) believe he requires hospitalization for medical detox. The patient has been admitted previously 5 times to rehab facilities for alcohol addiction. 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 Currently laboratory studies revealed alcohol level of 395. The patient does use medicinal marijuana. Other urine drug screen was negative. Patient's phosphorus level is low at 1.9. Magnesium is normal. LFTs are elevated with an AST of 349. Patient was given IV normal saline as he appeared to be dehydrated. He was given a multivitamin, IV folate and IV thiamine. He was not showing withdrawal symptoms yet. [facility] and [facility] will evaluate for further inpatient care. Care/management discussed with: global marketing manager and [facility] team Triage Nursing notes: reviewed and agree with them. Vital Signs: reviewed and unremarkable Additional History obtained from: global marketing manager-the patient called prior to coming to the emergency department to discuss his situation. Chronic Medical/Social Conditions affecting care: Alcohol abuse for many years Differential Diagnosis: alcohol intoxication, alcohol withdrawal, alcohol withdrawal seizure Diagnostics, independently interpreted by me: ECG: trigeminy at a rate of [address] segment elevation or other signs of ischemia. Cardiac Monitoring: Normal sinus rhythm at a rate of 76 with frequent PVCs HPI: 44 year old Male arrives for evaluation of alcohol withdrawal. patient describes drinking alcohol heavily over the past 3 years. he is interesting in quitting drinking but is concerned about alcohol withdrawal and alcohol withdrawal seizures. He tried stopping on his own. He had done a regimen where he would drink every other day and was doing okay but then went to stopping for 2 days at a time and began to feel poorly. Patient suffered from a seizure as a result of a medication side effect-Wellbutrin. The patient's therapists and psychiatrist requested that he come to the hospital for medical Detox. PAST MEDICAL HISTORY: See Below, PAST SURGICAL HISTORY: See Below, SOCIAL HISTORY: See Below, HOME MEDICATIONS: See list ALLERGIES: See list VITALS: See Below PHYSICAL EXAMINATION: HEENT: Head - normocephalic and atraumatic. Pupils are equal, round, and reactive to light. Extraocular eye muscles are intact, and sclera Are anicteric. Nose - moist nasal mucosa without discharge. Mouth - moist buccal mucosa. Oropharynx is nonerythematous and there is no tonsillar exudate or edema noted. Neck: Supple; no JVD or cervical lymphadenopathy Heart: Regular rate and rhythm. There is a normal S1 and S2 with no murmurs, clicks, or gallops appreciated. Lungs: Clear to auscultation bilaterally with no wheezes, rales, or rhonchi. Abdomen: Soft, completely nontender, nondistended, with good bowel sounds. There are no palpable pulsatile masses or hepatosplenomegaly. There is no guarding, rigidity, or rebound noted. Extremities: No evidence of cyanosis, clubbing, or edema. There are easily palpable peripheral pulses. Skin: warm and dry with poor turgor and significant areas of psoriasis. Emergency Department treatment: supervisor paper testing, IV normal saline bolus, oral multivitamin, IV thiamine, IV folate Emergency Department course: The patient was evaluated in room A-3. A complete history and physical was performed. Previous electronic medical records were reviewed. An order was placed for continuous cardiac monitoring. The patient was in a normal sinus rhythm at a rate of 76. A twelve-lead EKG was obtained as described above. An IV lock was initiated and labs were drawn as above. Patient was given an oral multivitamin. He was bolused with IV normal saline solution as he appears dehydrated. He was given IV thiamine and folate. Past Med/Surg History Problem List (Updated 07/14/24 @ 15:32 by Estrella Romero DO) Hypophosphatemia (Acute) Alcohol intoxication (Acute) Transaminitis Hypophosphatemia Alcohol abuse with withdrawal Obesity (BMI 30-39.9) Osteoarthritis of hip Neck pain Patellofemoral arthralgia of both knees Chronic pain syndrome Left facial numbness Left arm numbness Stroke-like symptoms Complaint of paresthesia (Acute) Hypertension (Acute) Psoriasis (Chronic 01/07/13) Migraine (Chronic) Lumbar radiculopathy (Chronic) GERD (gastroesophageal reflux disease) (Chronic) Hypothyroidism (Chronic) History of nephrotic syndrome (Chronic) Hypertension (Chronic) Nonrheumatic mitral valve regurgitation (Chronic) Bipolar I disorder, single manic episode (Chronic) 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 control (Chronic) Paresthesia and pain of left extremity Dyslipidemia (Chronic) Health care maintenance S/P left knee arthroscopy x 3 Status post left foot surgery S/P inguinal hernia repair LEFT/RT Cervical spine fracture Previous C1 fracture Syncope and collapse Periodic headache syndrome Cyst of finger Ganglion cyst Hematochezia History of sinus surgery Snoring Acquired deviated nasal septum Aberrant insertion of lingual frenulum Moderate obstructive sleep apnea Complex sleep apnea syndrome Bruxism Leg length discrepancy XR 07/09/22 - RLE 90.5 cm, LLE 91.8 cm History of syncope Medical History Obesity (BMI 30.0-34.9) Hemorrhoids Proctitis Lumbar radiculopathy Fracture, cervical vertebra Osteoarthritis Hx: nephrotic syndrome Colitis Hypothyroidism History of seizure Hx of migraines Hypertension Seborrheic dermatitis History of endocarditis Posttraumatic stress disorder Closed fracture of multiple phalanges of toe of left foot Surgical History History of esophagogastroduodenoscopy (EGD) History of colonoscopy History of tooth extraction History of cardiac cath History of mitral valve repair Family History Father Selective IgG2 deficiency Hypertension Dementia Family/Other Lung disease Grandfather (Paternal) Heart disease Grandmother (Paternal) Breast cancer Lung cancer Brain cancer Other No family history of adverse response to anesthesia No family history of bleeding disorder Social History Smoking Status: Former smoker Tobacco Type: Smokeless Tobacco (Dip or Chew) Age Started Using Tobacco: 15; Age Quit Using Tobacco: 42; packs per day: 1; Smoking End Date: 2021; Second Hand Exposure: No; Do You Dip or Chew Tobacco: No; Tobacco Cessation Education Requested by Patient: No Hx Alcohol Use: Yes Alcohol type: hard liquor Hx Substance Use: No Preferred Language: Vietnamese Communication Ability: Effective Visual Impairment: No Limitations Hearing Ability: Normal [employer] Required: No Beliefs That Will Affect Care: None marital status: Single Current Living Situation: Family Current Living Situation Comment: lives w/ mother and father current occupational status: disabled Other Information That Helps Us Care for You: No Feels Safe at Home: Yes Safety Concerns: Feels Safe At This Time Childhood Exposure to Second-Hand Smoke: Yes Diet: low salt Diet Comment: low salt Dental Care, Regularly: Yes Physical Activity Frequency: 1-2 Times per Week Seatbelt Use: always Sunscreen Use: Yes Assistive Devices: None Allergies Allergies Allergy/AdvReac Type Severity Reaction Status Date / Time bupropion Allergy Severe seizures Verified 07/10/24 13:00 [email or web address] Allergy Severe SEIZURE Verified 07/10/24 13:00 pollen extracts Allergy Mild congestion Verified 07/10/24 13:00 Home Meds Home Medications Medication Instructions Recorded Confirmed multivitamin 1 tab PO DAILY 01/21/22 07/12/24 Previous Rx's Medication Instructions Recorded escitalopram oxalate 10 mg tablet 10 mg PO QAM #90 tabs 06/24/21 escitalopram oxalate 20 mg tablet 20 mg PO QAM #90 tabs 08/04/21 cyclobenzaprine 10 mg tablet 10 mg PO TID PRN muscle spasm #270 09/28/23 tabs hydrocortisone 2.5 % topical cream 1 applic topical .COMPLEX #30 grams 04/26/24 atorvastatin 40 mg tablet 40 mg PO DAILY #90 tabs 06/25/24 gabapentin 300 mg capsule 300 mg PO TID #270 caps 06/25/24 gabapentin 600 mg tablet 600 mg PO TID #270 tabs 06/25/24 levothyroxine 50 mcg tablet 50 mcg PO DAILY #90 tabs 06/25/24 lisinopril 20 mg tablet 20 mg PO QAM #90 tabs 06/25/24 metoprolol succinate 50 mg 50 mg PO DAILY #90 tabs 06/25/24 tablet,extended release 24 hr clobetasol 0.05 % topical ointment 1 applic topical BID #45 grams 07/10/24 folic acid 1 mg tablet 1 mg PO .COMPLEX #30 tabs 07/10/24 methotrexate sodium 2.5 mg tablet 12.5 mg (5 x 2.5 mg) PO .COMPLEX 07/10/24 #20 tabs Results & Data (ED) Vital Signs Vital Signs - 24 hr 07/12/24 22:55 07/12/24 23:07 07/13/24 00:00 Temperature 37 C Temperature Source Oral Pulse Rate 82 83 83 Pulse Rhythm Regular Respiratory Rate 20 Blood Pressure 112/66 Blood Pressure Mean 81 Pulse Oximetry 96 98 Oxygen Delivery Method Room Air Room Air Sepsis Recent Fever Within 48 Hours No Sepsis New/Unexplained Change in Mental Status No Sepsis Action Taken by Nursing No Action Required 07/13/24 00:11 Temperature Temperature Source Pulse Rate 80 Pulse Rhythm Respiratory Rate Blood Pressure Blood Pressure Mean Pulse Oximetry Oxygen Delivery Method Sepsis Recent Fever Within 48 Hours Sepsis New/Unexplained Change in Mental Status Sepsis Action Taken by Nursing Laboratory Data 07/12/24 23:50 07/14/24 07:23 Lab Results 07/12/24 07/13/24 Range/Units 23:50 00:45 WBC 8.04 (4.8-10.8) K/ul RBC 4.41 L (4.70-6.10) M/uL Hgb 12.9 L (14.0-18.0) g/dl Hct 38.2 L (42.0-52.0) % MCV 86.6 (80.0-100.0) fL MCH 29.3 (25.0-34.0) pg MCHC 33.8 (32.0-36.0) g/dL RDW Std Deviation 48.3 H (36.4-46.3) fL RDW Coeff of [place]el[place] 15.2 H (11.5-14.5) % Plt Count 328 (130-400) K/uL MPV 9.5 (9.4-12.4) fL Immature Gran % (Auto) 0.5 % Neut % (Auto) 67.2 % Lymph % (Auto) 19.3 % [place] % (Auto) 10.2 % Eos % (Auto) 2.2 % Baso % (Auto) 0.6 % Neut # (Auto) 5.40 (1.40-6.50) K/uL Lymph # (Auto) 1.55 (1.20-3.40) K/uL [place] # (Auto) 0.82 H (0.11-0.59) K/uL Eos # (Auto) 0.18 (0.00-0.50) K/uL Baso # (Auto) 0.05 (0.00-0.20) K/uL Immature Gran # (Auto) 0.04 (0.01-0.20) K/uL Sodium 137 (136-145) mmol/L Potassium 3.8 (3.5-5.1) mmol/L Chloride 102 (98-107) mmol/L Carbon Dioxide 31 (21-32) mmol/L Anion Gap 4 (3-11) BUN 16 (6-23) mg/dl Creatinine 1.36 (0.6-1.4) mg/dl Est Cr Clr Drug Dosing 74.0 ml/min eGFR 65.40 BUN/Creatinine Ratio 11.8 (10-20) Glucose 87 (70-99(Fasting)) mg/dl Calcium 8.1 L (8.6-10.3) mg/dl Phosphorus 1.9 L (2.5-4.9) mg/dl Magnesium 2.3 (1.7-2.4) mg/dl Total Bilirubin 1.4 H (0.2-1.0) mg/dl AST 349 H (13-39) U/L ALT 795 H (7-52) U/L Alkaline Phosphatase 117 H (34-104) U/L Total Protein 6.4 (6.0-8.3) gm/dl Albumin 4.0 (3.4-5.0) gm/dl Globulin 2.4 L (2.5-4.0) gm/dl Albumin/Globulin Ratio 1.7 (0.9-2) Urine Color Yellow Urine Appearance Clear (Clear) Urine pH 6.5 (4.5-7.5) Ur Specific [place] 1.005 (1.000-1.030) Urine Protein Negative (Negative) Urine Glucose (UA) Negative (Negative) Urine Ketones Negative (Negative) Urine Blood Negative (Negative) Urine Nitrite Negative (Negative) Urine Bilirubin Negative (Negative) Urine Urobilinogen Negative (Negative) Ur Leukocyte Esterase Negative (Negative) Urine Opiates Screen Neg (Neg) Ur Methadone, Qual Neg (Neg) Urine Fentanyl Screen Neg (Neg) Urine Barbiturates Neg (Neg) Ur Phencyclidine (PCP) Neg (Neg) U Amphetamin/Meth Scrn Neg (Neg) MDMA (Ecstasy) Screen Neg (Neg) U Benzodiazepines Scrn Neg (Neg) Ur Cocaine Metabolite Neg (Neg) U Marijuana (THC) Screen Pos H (Neg) Ethyl Alcohol mg/dL 395.8 H (<10.0) mg/dl Administered Medications Clobetasol Propionate (Clobetasol Propionate 0.05% Oint 15 Gm Tube) 1 appln EXT BID ELIS Stop: 08/12/24 08:59 Last Admin: 07/14/24 09:26 Dose: 1 appln Documented By: Admin: 07/13/24 21:06 Dose: 1 appln Documented By: Admin: 07/13/24 07:51 Dose: 1 appln Documented By: BLAIR Docusate Sodium (Docusate Sodium 100 Mg Cap) 100 mg PO BID PRN PRN Reason: Constipation Stop: 08/12/24 04:07 Last Admin: 07/13/24 04:51 Dose: 100 mg Documented By: RAKAN Escitalopram Oxalate (Escitalopram Oxalate 10 Mg Tab) 30 mg PO QAM [facility] Stop: 08/12/24 08:59 Last Admin: 07/14/24 09:27 Dose: 30 mg Documented By: Admin: 07/13/24 07:47 Dose: 30 mg Documented By: BLAIR Gabapentin (Gabapentin 300 Mg Cap) 900 mg PO TID [facility] Stop: 08/12/24 04:07 Last Admin: 07/14/24 14:27 Dose: 900 mg Documented By: Admin: 07/14/24 09:26 Dose: 900 mg Documented By: Admin: 07/13/24 21:07 Dose: 900 mg Documented By: Admin: 07/13/24 14:11 Dose: 900 mg Documented By: Admin: 07/13/24 07:46 Dose: 900 mg Documented By: Admin: 07/13/24 05:12 Dose: 900 mg Documented By: RAKAN Thiamine HCl 100 mg/ Syringe 10 mls @ 2 mls/min IV QAM [facility] Stop: 08/12/24 08:59 Last Admin: 07/14/24 09:24 Dose: 2 mls/min Documented By: Admin: 07/13/24 07:45 Dose: 2 mls/min Documented By: BLAIR Folic Acid 1 mg/ Syringe 10 mls @ 5 mls[facility] [place]: 08/12/24 08:59 Last Admin: 07/14/24 09:23 Dose: 5 mls/min Documented By: Admin: 07/13/24 07:46 Dose: 5 mls/min Documented By: BLAIR Levothyroxine Sodium (Levothyroxine Sodium 50 Mcg Tablet) [facility] Stop: 08/12/24 06:29 Last Admin: 07/14/24 06:28 Dose: 50 mcg Documented By: Admin: 07/13/24 05:12 Dose: 50 mcg Documented By: RAKAN Lisinopril (Lisinopril 20 Mg Tab) 20 mg PO [facility] Stop: 08/12/24 08:59 Last Admin: 07/14/24 09:27 Dose: 20 mg Documented By: Admin: 07/13/24 07:48 Dose: 20 mg Documented By: BLAIR Lorazepam (Lorazepam 2 Mg/1 Ml Vial) 1 mg IV UD PRN; Protocol PRN Reason: EtOH Withdrawal AWSS Score 6,7 Stop: 08/12/24 04:07 Last Admin: 07/13/24 10:51 Dose: 1 mg Documented By: Admin: 07/13/24 04:51 Dose: 1 mg Documented By: RAKAN Lorazepam (Lorazepam 2 Mg/1 Ml Vial) 2 mg IV UD PRN; Protocol PRN Reason: EtOH Withdrawal AWSS Score 8,9 Stop: 08/12/24 04:07 Last Admin: 07/14/24 14:23 Dose: 2 mg Documented By: Admin: 07/14/24 09:17 Dose: 2 mg Documented By: Admin: 07/14/24 04:04 Dose: 2 mg Documented By: ASHTYN Metoprolol Succinate (Metoprolol Succ 50mg Ext Rel Tab) 50 mg PO DAILY [facility] Stop: 08/12/24 08:59 Last Admin: 07/14/24 09:27 Dose: 50 mg Documented By: Admin: 07/13/24 07:48 Dose: 50 mg Documented By: BLAIR Miscellaneous (Remove Nicoderm Patch) 1 each N/A DAILY@0859 [facility] Stop: 08/12/24 08:58 Last Admin: 07/14/24 09:25 Dose: 1 each Documented By: Admin: 07/13/24 07:50 Dose: Not Given Documented By: BLAIR Multivitamins (Multivitamin Tab) 1 tab PO QAM [facility] Stop: 08/12/24 08:59 Last Admin: 07/14/24 09:26 Dose: 1 tab Documented By: Admin: 07/13/24 07:49 Dose: 1 tab Documented By: BLAIR Nicotine (Nicotine 7 Mg/24 Hr Tdsy) 1 [place] [facility] [place]: 08/12/24 08:59 Last Admin: 07/14/24 09:25 Dose: 1 patch Documented By: Admin: 07/13/24 07:49 Dose: 1 patch Documented By: BLAIR Discontinued Medications Diazepam (Diazepam 5 Mg Tablet) 10 mg PO NOW ONE Stop: 07/13/24 01:57 Last Admin: 07/13/24 02:10 Dose: 10 mg Documented By: HUDSON Hydroxyzine HCl (Hydroxyzine Hcl 25 Mg Tab) 25 mg PO NOW STA Stop: 07/13/24 21:22 Last Admin: 07/13/24 21:32 Dose: 25 mg Documented By: ASHTYN Thiamine HCl 100 mg/ Syringe 10 mls @ 2 mls/min IV NOW STA Stop: 07/12/24 23:41 Last Admin: 07/13/24 00:33 Dose: 2 mls/min Documented By: HUDSON Folic Acid 1 mg/ Syringe 10 mls @ 5 mls/min IV NOW STA Stop: 07/12/24 23:38 Last Admin: 07/13/24 00:33 Dose: 5 mls/min Documented By: HUDSON Sodium Chloride (Nss) 1,000 mls @ 999 mls/hr IV .Q1H1M ONE Stop: 07/13/24 00:37 Last Infusion: 07/13/24 04:28 Dose: Infused Documented By: Admin: 07/13/24 00:33 Dose: 999 mls/hr Documented By: HUDSON Potassium Phosphate 21 mmol/ (Sodium Chloride) 507 mls @ 150 mls/hr IV ONE ONE Stop: 07/13/24 05:52 Last Infusion: 07/13/24 12:01 Dose: Infused Documented By: Admin: 07/13/24 04:27 Dose: 150 mls/hr Documented By: RAKAN Multivitamins (Multivitamin Tab) 1 tab PO NOW STA Stop: 07/12/24 23:38 Last Admin: 07/13/24 00:33 Dose: 1 tab Documented By: NAW Discharge Plan Visit Data Chief Complaint: Alcohol Withdrawal Stated Complaint: ETOH WITHDRAWL ED Provider: Estrella Romero Discharge Problem: Alcohol intoxication, Hypophosphatemia Patient Disposition: Admitted As Inpatient Discharge Instructions Interventions: ED Discharge Assessment Last Done: 07/13/24 04:41
[2024-07-13 00:30] LABS: BUN Creatinine Ratio 11.8 (10-20); Calcium 8.1 mg/dl (8.6-10.3); Potassium 3.8 mmol/L (3.5-5.1)
[2024-07-13 00:32] LABS: Albumin Globulin Ratio 1.7 (0.9-2); Bilirubin,Total 1.4 mg/dl (0.2-1.0); Globulin 2.4 gm/dl (2.5-4.0); Magnesium 2.3 mg/dl (1.7-2.4); Phosphorus 1.9 mg/dl (2.5-4.9); Total Protein 6.4 gm/dl (6.0-8.3)
[2024-07-13] MEDS: SODIUM CHLORIDE 0.9% 1,000 ML IV ONE (00:33)
[2024-07-13] MEDS: THIAMINE HCL 100 MG in SYRINGE 9 ML IV STA (00:33)
[2024-07-13] MEDS: FOLIC ACID 1 MG in SYRINGE 9.8 ML IV STA (00:33)
[2024-07-13] MEDS: MULTIVITAMIN TAB PO STA (00:33)
[2024-07-13 00:56] LABS: Appearance Urine Clear (Clear); Bilirubin Urine Negative (Negative); Blood Urine Negative (Negative); Color Urine Yellow; Glucose Urine UA Negative (Negative); Ketones Urine Negative (Negative); Leukocyte Esterase Urine Negative (Negative); Nitrite Urine Negative (Negative); Protein Urine Negative (Negative); Specific Gravity Urine 1.005 (1.000-1.030); Urobilinogen Urine Negative (Negative); pH Urine 6.5 (4.5-7.5)
[2024-07-13 01:20] LABS: Amphetamines+Metham, Urine Neg (Neg); Barbiturates, Urine Neg (Neg); Benzodiazepine, Urine Neg (Neg); Cocaine, Urine Neg (Neg); Fentanyl, Urine Neg (Neg); MDMA (Ecstacy), Urine Neg (Neg); Marijuana, Urine Pos (Neg); Methadone, Urine Neg (Neg); Opiate, Urine Neg (Neg); Phencyclidine, Urine Neg (Neg)
--- NOTE | 2024-07-13 01:26 | History & Physical Report ---
Date of Service July 13, 2024 Assessment & Plan (1) Alcohol abuse with withdrawal: (2) Hypophosphatemia: (3) Transaminitis: Plan Pt is a 44 y/o male with PMHx of HTN, hypothyroidism, bipolar 1, alcohol use disorder, hx of seizure 2/2 Wellbutrin. He presented to the ED with request for alcohol detox. He drinks 10 shots of whiskey daily for the past 2 years, last drink 07/12 roughly 1999. #alcohol withdrawal - EToH level 395.8 on admission - 10 mg PO Valium on admission - AWSS active withdrawal IV Ativan protocol - Thiamine IV 100mg, folic acid 1mg IV, multivitamin qam; first dose on admission - b12 level ordered with am labs - seizure precautions - ultimate goal is to return home after discharge #hypophosphatemia - phos 1.9, 2/2 depletion with vomiting and diarrhea - 21 mmol IV K Phos ordered - trend phos #transaminitis - hx of however acutely worsened, 2/2 alcohol use - AST 349, Alk phos 117, ALT pending - hold statin - trend CMP #lumbar radiculopathy - continue gabapentin 900 mg TID #psoriasis - continue cream prn, pt reports has not yet started methotrexate - defer at this time #bipolar type 1/ anxiety - continue Lexapro #Hypothyroidism continue levothyroxine #HTN continue lisinopril and metoprolol #nicotine use - gum at home, patch ordered VTE ppx: SCDs, low risk Dispo: PCU Admission and Anticipated Discharge Date Admission Date: 07/13/24 History of Present Illness Chief Complaint: alcohol withdrawal Primary Care Provider: Cuca Gil MD Pt is a 44 y/o male with PMHx of HTN, hypothyroidism, bipolar 1, alcohol use disorder, hx of seizure 2/2 Wellbutrin. He presented to the ED with request for alcohol detox. He drinks 10 shots of whiskey daily for the past 2 years, last drink 07/12 roughly 1999. Patient seen at bedside, he is anxious. He stated that he wanted to come in for alcohol detox as he is concerned with his history of seizure from being on Wellbutrin. He stated that he typically drinks 10 shots of whiskey/fireball per day for approximately 2 years. He tried to titrate off himself for starting with drinking every other day then every 2 days however began having symptoms of withdrawal. He went 72 hours without a drink yesterday and became extremely lightheaded and felt like he was about to have a seizure in [facility]. He stated he has a history of alcohol use disorder and chronic opioid use disorder and was on methadone for 10 to 12 years however has been stable for quite some time. He has been in rehab approximately 5 times, most recent roughly 2005. He endorses vomiting and diarrhea for several days. 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 Goal is to return home after detox. He has a good support system at home with his family and friends. He currently denies any lightheadedness, dizziness, nausea, diaphoresis; however appears restless and anxious on exam. he does endorse nicotine use, uses gum at home. He also endorses medical marijuana use, positive on UDS at time of admission. He denies any PMHX of DM, previous VTE, oxygen use. He has not taken his medications since yesterday. He wishes to be full code. Allergies Allergy/AdvReac Type Severity Reaction Status Date / Time bupropion Allergy Severe seizures Verified 07/10/24 13:00 [email or web address] Allergy Severe SEIZURE Verified 07/10/24 13:00 pollen extracts Allergy Mild congestion Verified 07/10/24 13:00 Home Medications Medication Instructions Recorded Confirmed Type escitalopram oxalate 10 mg tablet 10 mg PO QAM #90 tabs 06/24/21 07/12/24 Rx escitalopram oxalate 20 mg tablet 20 mg PO QAM #90 tabs 08/04/21 07/12/24 Rx multivitamin 1 tab PO DAILY 01/21/22 07/12/24 History cyclobenzaprine 10 mg tablet 10 mg PO TID PRN muscle spasm #270 09/28/23 07/12/24 Rx tabs hydrocortisone 2.5 % topical cream 1 applic topical .COMPLEX #30 grams 04/26/24 07/12/24 Rx atorvastatin 40 mg tablet 40 mg PO DAILY #90 tabs 06/25/24 07/12/24 Rx gabapentin 300 mg capsule 300 mg PO TID #270 caps 06/25/24 07/12/24 Rx gabapentin 600 mg tablet 600 mg PO TID #270 tabs 06/25/24 07/12/24 Rx levothyroxine 50 mcg tablet 50 mcg PO DAILY #90 tabs 06/25/24 07/12/24 Rx lisinopril 20 mg tablet 20 mg PO QAM #90 tabs 06/25/24 07/12/24 Rx metoprolol succinate 50 mg 50 mg PO DAILY #90 tabs 06/25/24 07/12/24 Rx tablet,extended release 24 hr clobetasol 0.05 % topical ointment 1 applic topical BID #45 grams 07/10/24 07/12/24 Rx folic acid 1 mg tablet 1 mg PO .COMPLEX #30 tabs 07/10/24 07/12/24 Rx methotrexate sodium 2.5 mg tablet 12.5 mg (5 x 2.5 mg) PO .COMPLEX 07/10/24 07/12/24 Rx #20 tabs Past Med/Surg History Problem List (Updated 07/13/24 @ 02:26 by Lisa Quispe PA-C) Transaminitis Hypophosphatemia Alcohol abuse with withdrawal Obesity (BMI 30-39.9) Osteoarthritis of hip Neck pain Patellofemoral arthralgia of both knees Chronic pain syndrome Left facial numbness Left arm numbness Stroke-like symptoms Complaint of paresthesia (Acute) Hypertension (Acute) Psoriasis (Chronic 01/07/13) Migraine (Chronic) Lumbar radiculopathy (Chronic) GERD (gastroesophageal reflux disease) (Chronic) Hypothyroidism (Chronic) History of nephrotic syndrome (Chronic) Hypertension (Chronic) Nonrheumatic mitral valve regurgitation (Chronic) Bipolar I disorder, single manic episode (Chronic) Alopecia totalis (Chronic) 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 of methadone for pain control (Chronic) Paresthesia and pain of left extremity Dyslipidemia (Chronic) Health care maintenance S/P left knee arthroscopy x 3 Status post left foot surgery S/P inguinal hernia repair LEFT/RT Cervical spine fracture Previous C1 fracture Syncope and collapse Periodic headache syndrome Cyst of finger Ganglion cyst Hematochezia History of sinus surgery Snoring Acquired deviated nasal septum Aberrant insertion of lingual frenulum Moderate obstructive sleep apnea Complex sleep apnea syndrome Bruxism Leg length discrepancy XR 07/09/22 - RLE 90.5 cm, LLE 91.8 cm History of syncope Medical History Obesity (BMI 30.0-34.9) Hemorrhoids Proctitis Lumbar radiculopathy Fracture, cervical vertebra Osteoarthritis Hx: nephrotic syndrome Colitis Hypothyroidism History of seizure Hx of migraines Hypertension Seborrheic dermatitis History of endocarditis Posttraumatic stress disorder Closed fracture of multiple phalanges of toe of left foot Surgical History History of esophagogastroduodenoscopy (EGD) History of colonoscopy History of tooth extraction History of cardiac cath History of mitral valve repair Family History Father Selective IgG2 deficiency Hypertension Dementia Family/Other Lung disease Grandfather (Paternal) Heart disease Grandmother (Paternal) Breast cancer Lung cancer Brain cancer Other No family history of adverse response to anesthesia No family history of bleeding disorder Social History Smoking Status: Former smoker Tobacco Type: Cigarettes Age Started Using Tobacco: 15; Age Quit Using Tobacco: 42; packs per day: 1; Second Hand Exposure: No; Do You Dip or Chew Tobacco: No; Hx Alcohol Use: Yes Hx Substance Use: No Preferred Language: Azeri Communication Ability: Effective Visual Impairment: No Limitations Hearing Ability: Normal Acupuncturist Required: No Beliefs That Will Affect Care: Spiritual marital status: Single Current Living Situation: Parent Current Living Situation Comment: Lives with his mom and dad current occupational status: disabled Feels Safe at Home: Yes Childhood Exposure to Second-Hand Smoke: Yes Diet: low salt Diet Comment: low salt Dental Care, Regularly: Yes Physical Activity Frequency: 1-2 Times per Week Seatbelt Use: always Sunscreen Use: Yes Review of Systems 2 Review of Systems: see HPI Physical Exam Physical Exam: The patient is awake, alert and oriented 3, anxious. HEENT- EOMI, mucous membranes moist. Hearing grossly intact. Heart-normal S1 and S2. No murmurs, rubs or gallops. Lungs-clear bilaterally, no respiratory distress, no accessory muscle use. Abdomen-normal bowel sounds and soft. No ascites noted. Non-tender. Extremities- no clubbing, cyanosis, or edema. Rheumatologic-normal range of motion. Results & Data Results & Data Vital Signs (Past 12 Hours) Vital Signs Temp Pulse Pulse Resp BP BP Pulse Ox 07/13/24 01:00 81 20 102/52 L 97 07/13/24 00:11 80 07/13/24 00:00 83 20 98 07/12/24 23:07 83 07/12/24 22:55 37 C 82 112/66 96 O2 Del Method 07/13/24 01:00 Room Air 07/13/24 00:11 07/13/24 00:00 Room Air 07/12/24 23:07 07/12/24 22:55 Room Air Laboratory Results reviewed cbc, cmp, mag, phos, UA, UDS, ETOH level Medications Administered ed - multivitamin, thiamine 100 mg IV, folic acid 1mg IV admission - Valium 10 mg PO, K Phos 21 mmol IV ECG Additional Comments: NSR with occasional PVCs, rate 79 QTC 444 Code Status & VTE Plan Code Status full VTE Prophylaxis Plan VTE Prophylaxis will be ordered: Yes Supervising Physician Co-Signing Physician Notes Patient seen and examined, chart reviewed, case discussed with ALEXANDRA Quispe and I agree with the assessment plan as document above. In brief, patient is a 44-year-old male with history of alcohol use disorder, reports drinking approximately 10 ounces of liquor daily (fireball and whiskey) last drink 8 hours ago. 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 As a result, patient has been trying to decrease his drinking over the last several days. On exam patient is anxious, no acute distress HEENTmoist mucous membranes, neck supple Heart + S1, S2, regular, no murmur/rub/gallops Lungs CTA anteriorly Abdomen soft, nontender, nondistended Extremities warm and well-perfused Labs and images reviewed pO4 = 1.9, alcohol level = 395.8 abnormal LFTs with AST = 349, ALT = 795, alk phos = 117 and total bili = 1.4 Assessment/[id number] male with history of alcohol use disorder presenting with concern for alcohol withdrawal. Patient does have an elevated alcohol level at 395.8. Does appear anxious on exam. Admit to PCU Valium 10 mg p.o. x 1 now Ativan as needed per DERRICK S protocol Thiamine/folic acid daily Repeat LFTs in the morning with INRif worsening will need to consider abdominal imaging Phosphorus repletion Remainder as above PG Care Time/CCT Total # of Minutes Spent Total Time Spent with Patient: Total time spent is greater than 50% in coordination of care (as documented) at patient's floor/unit and/or counseling patient: Coding Level of Care Code 16349 INT INP/OBS CARE MIN Diagnoses Alcohol abuse with withdrawal F10.139 Hypophosphatemia E83.39 Transaminitis R74.01
[2024-07-13] MEDS ORDERED: Ativan IV Alcohol Withdrawal--Active Protocol IV PRN ×2 (01:45→04:08)
[2024-07-13] MEDS ORDERED: POTASSIUM PHOS 3 MMOL/1 ML INFUSION IV STA (01:45)
[2024-07-13] MEDS ORDERED: LORazepam 2 MG/1 ML VIAL IV PRN ×3 (01:45)
[2024-07-13 01:57] LABS: Basophils # (auto) 0.05 K/uL (0.00-0.20); Basophils % (auto) 0.6 %; Eosinophils # (auto) 0.18 K/uL (0.00-0.50); Eosinophils % (auto) 2.2 %; Hematocrit (blood only) 38.2 % (42.0-52.0); Hemoglobin 12.9 g/dl (14.0-18.0); Immature Granulocytes # (auto) 0.04 K/uL (0.01-0.20); Immature Granulocytes % (auto) 0.5 %; Lymphocytes # (auto) 1.55 K/uL (1.20-3.40); Lymphocytes % (auto) 19.3 %; Mean Corpuscular Hemoglobin 29.3 pg (25.0-34.0); Mean Corpuscular Hgb Conc 33.8 g/dL (32.0-36.0); Mean Corpuscular Volume 86.6 fL (80.0-100.0); Mean Platelet Volume 9.5 fL (9.4-12.4); Monocytes # (auto) 0.82 K/uL (0.11-0.59); Monocytes % (auto) 10.2 %; Neutrophils % (auto) 67.2 %; Platelet Count 328 K/uL (130-400); RDW Coefficient of Variation 15.2 % (11.5-14.5); RDW Standard Deviation 48.3 fL (36.4-46.3); Red Blood Count 4.41 M/uL (4.70-6.10); White Blood Count 8.04 K/ul (4.8-10.8)
[2024-07-13] MEDS: diazePAM 5 MG TABLET PO ONE (02:10)
[2024-07-13] MEDS ORDERED: ONDANSETRON INJ 2 MG/ML 2 ML VIAL IV PRN (04:08)
[2024-07-13] MEDS: POTASSIUM PHOSPHATE 21 MMOL in SODIUM CHLORIDE 0.9% 500 ML IV ONE (04:27)
[2024-07-13] MEDS: LORazepam 2 MG/1 ML VIAL IV PRN (04:51)
[2024-07-13] MEDS: DOCUSATE SODIUM 100 MG CAP PO PRN (04:51)
[2024-07-13] MEDS: LEVOTHYROXINE SODIUM 50 MCG TABLET PO SCH (05:12)
[2024-07-13] MEDS: GABAPENTIN 300 MG CAP PO SCH (05:12)
[2024-07-13 06:38] LABS: BUN Creatinine Ratio 12.1 (10-20); Potassium 4.5 mmol/L (3.5-5.1)
[2024-07-13 06:41] LABS: Prothrombin Time 10.9 Seconds (9.0-12.0)
[2024-07-13 06:46] LABS: Albumin Globulin Ratio 1.5 (0.9-2); Albumin Level 3.6 gm/dl (3.4-5.0); Bilirubin,Total 1.4 mg/dl (0.2-1.0); Globulin 2.4 gm/dl (2.5-4.0)
[2024-07-13] MEDS: THIAMINE HCL 100 MG in SYRINGE 9 ML IV SCH (07:45)
[2024-07-13] MEDS: FOLIC ACID 1 MG in SYRINGE 9.8 ML IV SCH (07:46)
[2024-07-13] MEDS: ESCITALOPRAM OXALATE 10 MG TAB PO SCH (07:47)
[2024-07-13] MEDS: METOPROLOL SUCC 50MG EXT REL TAB PO SCH (07:48)
[2024-07-13] MEDS: lisinopril 20 MG TAB PO SCH (07:48)
[2024-07-13] MEDS: NICOTINE 7 MG/24 HR TDSY TD SCH (07:49)
[2024-07-13] MEDS: MULTIVITAMIN TAB PO SCH (07:49)
[2024-07-13] MEDS: CLOBETASOL PROPIONATE 0.05% OINT 15 GM TUBE EXT SCH (07:51)
[2024-07-13 07:55] LABS: Phosphorus 2.7 mg/dl (2.5-4.9)
--- NOTE | 2024-07-13 09:10 | Electrocardiogram Report ---
Test Reason : Blood Pressure : */* mmHG Vent. Rate : 79 BPM Atrial Rate : 79 BPM P-R Int : 172 ms QRS Dur : 98 ms QT Int : 388 ms P-R-T Axes : 34 59 78 degrees QTcB Int : 444 ms Sinus rhythm with frequent Premature ventricular complexes Otherwise normal ECG When compared with ECG of 27-Jan-2023 05:13, Premature ventricular complexes are now Present Confirmed by Vijay Roland ([id number]) on 07/13/2024 9:09:34 AM Referred By: REFERRED SELF Confirmed By: Vijay Roland
--- NOTE | 2024-07-13 15:30 | Hospitalist Progress Note ---
Date of Service July 13, 2024 Assessment & Plan (1) Alcohol abuse with withdrawal: (2) Hypophosphatemia: (3) Transaminitis: Plan 44 years old male with PMH of FULL CODE @ home, obesity with BMI 31.6 (height 170.18 cm; weight 91.5 kg), HTN, hypothyroidism, plaque psoriasis for the past 10 years, inadequately treated with clobetasol 0.005% ointment bid prn pruritus, awaiting outpatient Dermatology Service evaluation with his Digital Marketing Manager Dr. Marco Bertrand regarding initiation of Tremfya (guselkumab), bipolar disorder type I, seizure disorder secondary to bupropion, and ongoing ETOH abuse (e.g., drinking at least 10 shots of whiskey daily for the past 2 years with last whiskey drink imbibed on 07/12/2024, 8:00pm, who was admitted to the inpatient hospitalist service @ [facility] on 07/12/2024 with the following diagnoses: 1. Acute ETOH withdrawal. 2. Acute hypophosphatemia with admission PO4 1.9 mg/dL (07/12/2024, 11:50pm). 3. Acute transaminitis with AST 349 U/L, ALT 795 U/L, ALK PHOS 117 U/L (07/03, 11:50pm). 1. Acute ETOH withdrawal, RESOLVING well. - EToH level 395.8 mg/dL (07/12/2024, 11:50pm). - 10 mg PO Valium on admission - Continue CIWA scale with ativan IV protocol - Thiamine IV 100mg, folic acid 1mg IV, multivitamin qam; first dose on admission - b12 level ordered with am labs - seizure precautions - ultimate goal is to return home after discharge 2. Acute hypophosphatemia, RESOLVED. - admission PO4 1.9 mg/dL, 2/2 depletion with vomiting and diarrhea - 21 mmol IV K Phos ordered - post-supplement PO4 level normal at 2.7 mg/dL (07/13/2024, 5:57am). 3. Acute transaminitis with AST 349 U/L, ALT 795 U/L, ALK PHOS 117 U/L (07/12/2024, 11:50pm), RESOLVING well. - 2/2 alcohol use - hold off statin with repeat LFT decreasing to AST 284 U/L, ALT 661 U/L, ALK PHOS 106 U/L (07/13/2024, 5:57am). - check repeat LFT in the 07/14/2024 am. #lumbar radiculopathy - continue gabapentin 900 mg TID in lieu of patient's home-scheduled medicinal marijuana #psoriasis - continue cream prn, pt reports has not yet started methotrexate - defer at this time to outpatient Dermatology Service evaluation with patient's own Digital Marketing Manager Dr. Marco Bertrand regarding outpatient initiation of Tremfya (guselkumab) as patient reports no clinical improvement/rash mitigation with clobetasol 0.05% ointment bid prn pruritus #bipolar type 1/ anxiety - continue Lexapro #Hypothyroidism continue levothyroxine #HTN continue lisinopril and metoprolol #nicotine use - gum at home, patch ordered VTE ppx: SCDs, low risk Dispo: PCU Admission and Anticipated Discharge Date Admission Date: July 13, 2024 Subjective "I feel ok. Do you know if my Digital Marketing Manager Dr. Marco Bertrand can see my plaque psoriasis? I don't want to take methotrexate pills; I prefer to start the Tremfiya (guselkumab) samples that Dr. Bertrand said he has in his office." Review of Systems Constitutional: Negative for antecedent/coincident anxiety, tremors, major depression, suicidal ideation, fevers, chills, diaphoresis, cough, wheeze, sore throat, hemoptysis, chest pains, palpitations, pleurisy, nausea, vomiting, diarrhea, abdominal pain, pelvic pain, hematemesis, hematochezia, melena, hematuria, dysuria, frequency, urgency, headaches, dizziness, lightheadedness, visual changes, hearing changes, weakness, falls, syncope, trauma, travel history, sick contacts, or food/drug ingestions novel or new. All other review of systems are reported as negative by the patient on 07/13/2024. Physical Exam Constitutional: General: Comfortable, coherent, cooperative; wide awake and alert. Not confused, lethargic, or obtunded. Patient speaks in complete, fluent, and articulate sentences without pause, cough, or wheeze. HEENT: Normocephalic, atraumatic. Extra-ocular muscles intact. Pupils equally round and reactive to light. No nystagmus, gaze paresis, anisocoria, miosis, mydriasis, hyphema, scleral injection, conjunctivitis, or pterygium. No otorrhea or rhinorrhea. No pharyngeal erythema, edema, or discharge. Neck: Supple, no stridor, bruit, goiter, or hepato-jugular reflux. Jugular venous pressure is estimated to be 3 cm above the sternal angle of Jacob, which in turn, is 5 cm above the level of the right atrium; with jugular venous pressure estimated to be 8 cm, then, there is no jugular venous distention on 07/13/2024. Lymphatics: No cervical (anterior/posterior), supraclavicular, infraclavicular, axillary, epitrochlear, or inguinal adenopathy. Chest: Symmetric rise and fall with respirations. Non-tender to palpation. Lungs: Clear to auscultation and percussion. Heart: Regular rate and rhythm. S1 and S2 noted. No S3 or S4 summation gallop. No tripartite friction rub. Grade II/ early systolic murmur @ LLSB without radiation to the carotids, axilla, or back, and which remains invariant in regards to the respiratory cycle. Abdomen: Soft, non-tender, non-distended. No rebound, guarding, Wilhelm's sign, or organomegaly. Bowel sounds auscultated in all 4 quadrants. Extremities: No clubbing, cyanosis, or edema. 2+ pedal pulses bilaterally. Skin: No decubitus ulcer or enanthem. Positive exanthem noted for plaque psoriasis / hyperkeratosis with silver scale on extensor surfaces, specifically the left knee/[place], left arm (not including elbow), right lateral thigh, and back, pruritic. No erythema, edema, induration, warmth, tenderness, crepitus, fluctuance, discharge, malodor, ulceration, or lymphangitic streaking. Genito-urinary: No urethral discharge. No selby catheter. Neurology: Alert and oriented in regards to person, place, time, and situation. DTR+ and symmetric. 5/5 motor strength in all 4 extremities, both proximally and distally. No pronator drift. No facial droop. No dysarthria. Psychiatry: No homicidal ideation. No suicidal ideation. No flat affect; smiles appropriately. Results & Data Results & Data Vital Signs (Past 12 Hours) Vital Signs Temp Pulse Pulse Resp BP BP Pulse Ox 07/13/24 11:00 36.5 C 71 20 110/72 94 07/13/24 08:03 36.5 C 72 21 108/76 97 07/13/24 04:41 07/13/24 04:08 37.0 C 77 20 135/99 98 07/13/24 03:55 73 O2 Del Method 07/13/24 11:00 Room Air 07/13/24 08:03 Room Air 07/13/24 04:41 Room Air 07/13/24 04:08 Room Air 07/13/24 03:55 Laboratory Results 07/13/24 07/13/24 07/12/24 05:57 00:45 23:50 WBC 8.04 RBC 4.41 L Hgb 12.9 L Hct 38.2 L MCV 86.6 MCH 29.3 MCHC 33.8 RDW Std Deviation 48.3 H RDW Coeff of Nel[place] 15.2 H Plt Count 328 MPV 9.5 Immature Gran % (Auto) 0.5 Neut % (Auto) 67.2 Lymph % (Auto) 19.3 [place] % (Auto) 10.2 Eos % (Auto) 2.2 Baso % (Auto) 0.6 Neut # (Auto) 5.40 Lymph # (Auto) 1.55 Webster # (Auto) 0.82 H Eos # (Auto) 0.18 Baso # (Auto) 0.05 Immature Gran # (Auto) 0.04 PT 10.9 INR 1.0 Sodium 143 137 Potassium 4.5 3.8 Chloride 107 102 Carbon Dioxide 30 31 Anion Gap 6 4 BUN 13 16 Creatinine 1.07 1.36 Est Cr Clr Drug Dosing 94.0 74.0 eGFR 87.21 65.40 BUN/Creatinine Ratio 12.1 11.8 Glucose 86 87 Calcium 8.0 L 8.1 L Phosphorus 2.7 1.9 L Magnesium 2.3 Total Bilirubin 1.4 H 1.4 H AST 284 H 349 H ALT 661 H 795 H Alkaline Phosphatase 106 H 117 H Total Protein 6.0 6.4 Albumin 3.6 4.0 Globulin 2.4 L 2.4 L Albumin/Globulin Ratio 1.5 1.7 Vitamin B12 901 Urine Color Yellow Urine Appearance Clear Urine pH 6.5 Ur Specific [place] 1.005 Urine Protein Negative Urine Glucose (UA) Negative Urine Ketones Negative Urine Blood Negative Urine Nitrite Negative Urine Bilirubin Negative Urine Urobilinogen Negative Ur Leukocyte Esterase Negative Urine Opiates Screen Neg Ur Methadone, Qual Neg Urine Fentanyl Screen Neg Urine Barbiturates Neg Ur Phencyclidine (PCP) Neg U Amphetamin/Meth Scrn Neg MDMA (Ecstasy) Screen Neg U Benzodiazepines Scrn Neg Ur Cocaine Metabolite Neg U Marijuana (THC) Screen Pos H Ethyl Alcohol mg/dL 395.8 H PG Care Time/CCT Total # of Minutes Spent Total Time Spent with Patient: Total time spent is greater than 50% in coordination of care (as documented) at patient's floor/unit and/or counseling patient: Coding Level of Care Code 94804 SUB INP/OBS CARE 235MIN Diagnoses Alcohol abuse with withdrawal F10.139 Hypophosphatemia E83.39 Transaminitis R74.01
[2024-07-13] MEDS: hydrOXYzine HCl 25 MG TAB PO STA (21:32)
[2024-07-14] MEDS: LORazepam 2 MG/1 ML VIAL IV PRN (04:04)
[2024-07-14 08:28] LABS: BUN Creatinine Ratio 13.7 (10-20); Calcium 8.4 mg/dl (8.6-10.3); Creatinine Clr Calc Pharmacy 109.3 ml/min; Potassium 4.2 mmol/L (3.5-5.1)
[2024-07-14 08:35] LABS: Prothrombin Time 11.1 Seconds (9.0-12.0)
[2024-07-14 08:46] LABS: Albumin Globulin Ratio 1.4 (0.9-2); Albumin Level 3.6 gm/dl (3.4-5.0); Bilirubin Direct 0.7 mg/dl (0-0.2); Bilirubin,Total 1.7 mg/dl (0.2-1.0); Globulin 2.6 gm/dl (2.5-4.0); Phosphorus 2.9 mg/dl (2.5-4.9); Total Protein 6.2 gm/dl (6.0-8.3)
--- NOTE | 2024-07-14 15:18 | Hospitalist Progress Note ---
Date of Service July 14, 2024 Assessment & Plan (1) Alcohol abuse with withdrawal: (2) Hypophosphatemia: (3) Transaminitis: Plan 44 years old male with PMH of FULL CODE @ home, obesity with BMI 31.6 (height 170.18 cm; weight 91.5 kg), HTN, hypothyroidism, plaque psoriasis for the past 10 years, inadequately treated with clobetasol 0.005% ointment bid prn pruritus, awaiting outpatient Dermatology Service evaluation with his Bottle Gauger Dr. Marco Bertrand regarding initiation of Tremfya (guselkumab), bipolar disorder type I, seizure disorder secondary to bupropion, and ongoing ETOH abuse (e.g., drinking at least 10 shots of whiskey daily for the past 2 years with last whiskey drink imbibed on 07/12/2024, 8:00pm, who was admitted to the inpatient hospitalist service @ [facility] on 07/12/2024 with the following diagnoses: 1. Acute ETOH withdrawal. 2. Acute hypophosphatemia with admission PO4 1.9 mg/dL (07/12/2024, 11:50pm). 3. Acute transaminitis with AST 349 U/L, ALT 795 U/L, ALK PHOS 117 U/L (07/03, 11:50pm). 1. Acute ETOH withdrawal, RESOLVING well. - EToH level 395.8 mg/dL (07/12/2024, 11:50pm). - 10 mg PO Valium on admission - Continue CIWA scale with ativan IV protocol - Thiamine IV 100mg, folic acid 1mg IV, multivitamin qam; first dose on admission - Vitamin B12 level is normal at 901 pg/mL (07/13/2024, 5:57am). - seizure precautions - ultimate goal is to return home after discharge 2. Acute hypophosphatemia, RESOLVED. - admission PO4 1.9 mg/dL, 2/2 depletion with vomiting and diarrhea - 21 mmol IV K Phos ordered - post-supplement PO4 level normal at 2.7 mg/dL (07/13/2024, 5:57am) and 2.9 mg/dL (07/14/2024, 7:23am). 3. Acute transaminitis with AST 349 U/L, ALT 795 U/L, ALK PHOS 117 U/L (07/12/2024, 11:50pm), RESOLVING well. - Due to alcohol use - hold off statin with repeat LFT decreasing, as shown below: AST 284 U/L, ALT 661 U/L, ALK PHOS 106 U/L (07/13/2024, 5:57am). AST 169 U/L, ALT 514 U/L, ALK PHOS 115 U/L (07/14/2024, 7:23am). - check repeat LFT in the 07/15/2024 am. #lumbar radiculopathy - continue gabapentin 900 mg TID in lieu of patient's home-scheduled medicinal marijuana #psoriasis - continue cream prn, pt reports has not yet started methotrexate - defer at this time to outpatient Dermatology Service evaluation with patient's own Bottle Gauger Dr. Marco Bertrand regarding outpatient initiation of Tremfya (guselkumab) as patient reports no clinical improvement/rash mitigation with clobetasol 0.05% ointment bid prn pruritus #bipolar type 1/ anxiety - continue Lexapro #Hypothyroidism continue levothyroxine #HTN continue lisinopril and metoprolol #nicotine use - gum at home, patch ordered VTE ppx: SCDs, low risk Dispo: PCU Admission and Anticipated Discharge Date Admission Date: July 13, 2024 Subjective "I feel fine. No complaints." Review of Systems Constitutional: Negative for antecedent/coincident fevers, chills, diaphoresis, cough, wheeze, sore throat, hemoptysis, chest pains, palpitations, pleurisy, nausea, vomiting, diarrhea, abdominal pain, pelvic pain, hematemesis, hematochezia, melena, hematuria, dysuria, frequency, urgency, headaches, dizziness, lightheadedness, visual changes, hearing changes, weakness, falls, syncope, trauma, travel history, sick contacts, or food/drug ingestions novel or new. All other review of systems are reported as negative by the patient on 07/14/2024. Physical Exam Constitutional: General: Comfortable, coherent, cooperative; wide awake and alert. Not confused, lethargic, or obtunded. Patient speaks in complete, fluent, and articulate sentences without pause, cough, or wheeze. HEENT: Normocephalic, atraumatic. Extra-ocular muscles intact. Pupils equally round and reactive to light. No nystagmus, gaze paresis, anisocoria, miosis, mydriasis, hyphema, scleral injection, conjunctivitis, or pterygium. No otorrhea or rhinorrhea. No pharyngeal erythema, edema, or discharge. Neck: Supple, no stridor, bruit, goiter, or hepato-jugular reflux. Jugular venous pressure is estimated to be 3 cm above the sternal angle of Jacob, which in turn, is 5 cm above the level of the right atrium; with jugular venous pressure estimated to be 8 cm, then, there is no jugular venous distention on 07/14/2024. Lymphatics: No cervical (anterior/posterior), supraclavicular, infraclavicular, axillary, epitrochlear, or inguinal adenopathy. Chest: Symmetric rise and fall with respirations. Non-tender to palpation. Lungs: Clear to auscultation and percussion. Heart: Regular rate and rhythm. S1 and S2 noted. No S3 or S4 summation gallop. No tripartite friction rub. Grade II/ early systolic murmur @ LLSB without radiation to the carotids, axilla, or back, and which remains invariant in regards to the respiratory cycle. Abdomen: Soft, non-tender, non-distended. No rebound, guarding, Wilhelm's sign, or organomegaly. Bowel sounds auscultated in all 4 quadrants. Extremities: No clubbing, cyanosis, or edema. 2+ pedal pulses bilaterally. Skin: No decubitus ulcer or enanthem. Positive exanthem noted for plaque psoriasis / hyperkeratosis with silver scale on extensor surfaces, specifically the left knee/boston, left arm (not including elbow), right lateral thigh, and back, pruritic. No erythema, edema, induration, warmth, tenderness, crepitus, fluctuance, discharge, malodor, ulceration, or lymphangitic streaking. Genito-urinary: No urethral discharge. No selby catheter. Neurology: Alert and oriented in regards to person, place, time, and situation. DTR+ and symmetric. 5/5 motor strength in all 4 extremities, both proximally and distally. No pronator drift. No facial droop. No dysarthria. Psychiatry: No homicidal ideation. No suicidal ideation. No flat affect; smiles appropriately. Results & Data Results & Data Vital Signs (Past 12 Hours) Vital Signs Temp Pulse Pulse Resp BP Pulse Ox O2 Del Method 07/14/24 14:19 37.1 C 91 H 22 147/105 H 98 Room Air 07/14/24 11:41 36.6 C 100 H 18 133/84 96 Room Air 07/14/24 10:29 85 07/14/24 10:08 36.5 C 91 H 18 136/94 99 Room Air 07/14/24 09:10 37.0 C 99 H 24 159/108 H 99 Room Air 07/14/24 07:39 37.2 C 91 H 16 158/92 H 99 Room Air 07/14/24 04:01 37.5 C 90 18 162/103 H 96 Room Air Laboratory Results 07/14/24 07:23 PT 11.1 INR 1.0 Sodium 138 Potassium 4.2 Chloride 104 Carbon Dioxide 30 Anion Gap 4 BUN 13 Creatinine 0.95 Est Cr Clr Drug Dosing 109.3 eGFR 100.59 BUN/Creatinine Ratio 13.7 Glucose 85 Calcium 8.4 L Phosphorus 2.9 Total Bilirubin 1.7 H Direct Bilirubin 0.7 H AST 169 H ALT 514 H Alkaline Phosphatase 115 H Total Protein 6.2 Albumin 3.6 Globulin 2.6 Albumin/Globulin Ratio 1.4 PG Care Time/CCT Total # of Minutes Spent Total Time Spent with Patient: Total time spent is greater than 50% in coordination of care (as documented) at patient's floor/unit and/or counseling patient: Coding Level of Care Code 50266 SUB INP/OBS CARE 2/35MIN Diagnoses Alcohol abuse with withdrawal F10.139 Hypophosphatemia E83.39 Transaminitis R74.01
[2024-07-15 07:07] LABS: Albumin Level 3.8 gm/dl (3.4-5.0); Bilirubin Direct 0.6 mg/dl (0-0.2); Bilirubin,Total 1.5 mg/dl (0.2-1.0); Phosphorus 3.2 mg/dl (2.5-4.9); Total Protein 6.4 gm/dl (6.0-8.3)
[2024-07-15] MEDS: LABETALOL HCL 100 MG TAB PO SCH (10:34)
[2024-07-15 10:48] LABS: Marijuana Quant, GCMS Urine 785 ng/mL (<5)
[2024-07-15] MEDS: ACETAMINOPHEN 325 MG TAB PO PRN (14:24)
--- NOTE | 2024-07-15 16:34 | Hospitalist Progress Note ---
Date of Service July 15, 2024 Assessment & Plan (1) Alcohol abuse with withdrawal: (2) Hypophosphatemia: (3) Transaminitis: Plan 44 years old male with PMH of FULL CODE @ home, obesity with BMI 31.6 (height 170.18 cm; weight 91.5 kg), HTN, hypothyroidism, plaque psoriasis for the past 10 years, inadequately treated with clobetasol 0.005% ointment bid prn pruritus, awaiting outpatient Dermatology Service evaluation with his Construction Person Dr. Marco Bertrand regarding initiation of Tremfya (guselkumab), bipolar disorder type I, seizure disorder secondary to bupropion, and ongoing ETOH abuse (e.g., drinking at least 10 shots of whiskey daily for the past 2 years with last whiskey drink imbibed on 07/12/2024, 8:00pm, who was admitted to the inpatient hospitalist service @ [facility] on 07/12/2024 with the following diagnoses: 1. Acute ETOH withdrawal. 2. Acute hypophosphatemia with admission PO4 1.9 mg/dL (07/12/2024, 11:50pm). 3. Acute transaminitis with AST 349 U/L, ALT 795 U/L, ALK PHOS 117 U/L (07/03, 11:50pm). 1. Acute ETOH withdrawal, RESOLVING well. - EToH level 395.8 mg/dL (07/12/2024, 11:50pm). - 10 mg PO Valium on admission - Continue CIWA scale with ativan IV protocol - Thiamine IV 100mg, folic acid 1mg IV, multivitamin qam; first dose on admission - Vitamin B12 level is normal at 901 pg/mL (07/13/2024, 5:57am). - seizure precautions - ultimate goal is to return home after discharge 2. Acute hypophosphatemia, RESOLVED. - admission PO4 1.9 mg/dL, 2/2 depletion with vomiting and diarrhea - patient subsequently received KPO4 21 mmol IV x 1 dose (07/13/2024, 4:27am). - post-supplement PO4 level normal at 2.7 mg/dL (07/13/2024, 5:57am) and 2.9 mg/dL (07/14/2024, 7:23am). 3. Acute transaminitis with AST 349 U/L, ALT 795 U/L, ALK PHOS 117 U/L (07/12/2024, 11:50pm), RESOLVING well. - Due to alcohol use - hold off statin with repeat LFT decreasing, as shown below: AST 284 U/L, ALT 661 U/L, ALK PHOS 106 U/L (07/13/2024, 5:57am). AST 169 U/L, ALT 514 U/L, ALK PHOS 115 U/L (07/14/2024, 7:23am). AST 101 U/L, ALT 376 U/L, ALK PHOS 113 U/L (07/15/2024, 5:53am). - check repeat LFT in the 07/16/2024 am. #lumbar radiculopathy - continue gabapentin 900 mg TID in lieu of patient's home-scheduled medicinal marijuana #psoriasis - continue cream prn, pt reports has not yet started methotrexate - defer at this time to outpatient Dermatology Service evaluation with patient's own Construction Person Dr. Marco Bertrand regarding outpatient initiation of Tremfya (guselkumab) as patient reports no clinical improvement/rash mitigation with clobetasol 0.05% ointment bid prn pruritus #bipolar type 1/ anxiety - continue Lexapro #Hypothyroidism continue levothyroxine #HTN continue lisinopril and metoprolol #nicotine use - gum at home, patch ordered VTE ppx: SCDs, low risk Dispo: PCU Admission and Anticipated Discharge Date Admission Date: July 13, 2024 Subjective "I feel ok. No complaints." Review of Systems Constitutional: Negative for antecedent/coincident fevers, chills, diaphoresis, cough, wheeze, sore throat, hemoptysis, chest pains, palpitations, pleurisy, nausea, vomiting, diarrhea, abdominal pain, pelvic pain, hematemesis, hematochezia, melena, hematuria, dysuria, frequency, urgency, headaches, dizziness, lightheadedness, visual changes, hearing changes, weakness, falls, syncope, trauma, travel history, sick contacts, or food/drug ingestions novel or new. All other review of systems are reported as negative by the patient on 07/15/2024. Physical Exam Constitutional: General: Comfortable, coherent, cooperative; wide awake and alert. Not confused, lethargic, or obtunded. Patient speaks in complete, fluent, and articulate sentences without pause, cough, or wheeze. HEENT: Normocephalic, atraumatic. Extra-ocular muscles intact. Pupils equally round and reactive to light. No nystagmus, gaze paresis, anisocoria, miosis, mydriasis, hyphema, scleral injection, conjunctivitis, or pterygium. No otorrhea or rhinorrhea. No pharyngeal erythema, edema, or discharge. Neck: Supple, no stridor, bruit, goiter, or hepato-jugular reflux. Jugular venous pressure is estimated to be 3 cm above the sternal angle of Jacob, which in turn, is 5 cm above the level of the right atrium; with jugular venous pressure estimated to be 8 cm, then, there is no jugular venous distention on 07/15/2024. Lymphatics: No cervical (anterior/posterior), supraclavicular, infraclavicular, axillary, epitrochlear, or inguinal adenopathy. Chest: Symmetric rise and fall with respirations. Non-tender to palpation. Lungs: Clear to auscultation and percussion. Heart: Regular rate and rhythm. S1 and S2 noted. No S3 or S4 summation gallop. No tripartite friction rub. Grade II/ early systolic murmur @ LLSB without radiation to the carotids, axilla, or back, and which remains invariant in regards to the respiratory cycle. Abdomen: Soft, non-tender, non-distended. No rebound, guarding, Wilhelm's sign, or organomegaly. Bowel sounds auscultated in all 4 quadrants. Extremities: No clubbing, cyanosis, or edema. 2+ pedal pulses bilaterally. Skin: No decubitus ulcer or enanthem. Positive exanthem noted for plaque psoriasis / hyperkeratosis with silver scale on extensor surfaces, specifically the left knee/boston, left arm (not including elbow), right lateral thigh, and back, pruritic. No erythema, edema, induration, warmth, tenderness, crepitus, fluctuance, discharge, malodor, ulceration, or lymphangitic streaking. Genito-urinary: No urethral discharge. No selby catheter. Neurology: Alert and oriented in regards to person, place, time, and situation. DTR+ and symmetric. 5/5 motor strength in all 4 extremities, both proximally and distally. No pronator drift. No facial droop. No dysarthria. No tremors, tics, or myoclonus. Psychiatry: No homicidal ideation. No suicidal ideation. No flat affect; smiles appropriately. Results & Data Results & Data Vital Signs (Past 12 Hours) Vital Signs Temp Pulse Pulse Resp BP Pulse Ox O2 Del Method 07/15/24 16:06 36.7 C 89 20 121/89 98 Room Air 07/15/24 10:12 36.5 C 89 19 142/88 H 95 Room Air 07/15/24 08:00 81 07/15/24 08:00 36.3 C L 89 18 129/86 98 Room Air Laboratory Results 07/15/24 07/13/24 05:53 00:45 Phosphorus 3.2 Total Bilirubin 1.5 H Direct Bilirubin 0.6 H AST 101 H ALT 376 H Alkaline Phosphatase 113 H Total Protein 6.4 Albumin 3.8 U Marijuana THC Carboxy 785 H Drug Screen Comment SEE NOTE PG Care Time/CCT Total # of Minutes Spent Total Time Spent with Patient: Total time spent is greater than 50% in coordination of care (as documented) at patient's floor/unit and/or counseling patient: Coding Level of Care Code 47881 SUB INP/OBS CARE 2/35MIN Diagnoses Alcohol abuse with withdrawal F10.139 Hypophosphatemia E83.39 Transaminitis R74.01
[2024-07-15] MEDS: LORazepam 2 MG/1 ML VIAL IV STA (19:21)
[2024-07-15] MEDS: LORazepam 1 MG TAB PO STA (19:21)
[2024-07-16] MEDS: LORazepam 2 MG/1 ML VIAL IV PRN (00:18)
[2024-07-16 07:18] LABS: Alanine Aminotransferase 269 U/L (7-52); Albumin Level 3.8 gm/dl (3.4-5.0); Alkaline Phosphatase 104 U/L (34-104); Bilirubin,Total 1.2 mg/dl (0.2-1.0); Total Protein 6.6 gm/dl (6.0-8.3)
[2024-07-16 08:48] LABS: Bilirubin Direct 0.3 mg/dl (0-0.2)
--- NOTE | 2024-07-16 12:07 | Hospitalist Progress Note ---
Date of Service July 16, 2024 Assessment & Plan (1) Alcohol abuse with withdrawal: (2) Hypophosphatemia: (3) Transaminitis: Plan 44 years old male with PMH of FULL CODE @ home, obesity with BMI 31.6 (height 170.18 cm; weight 91.5 kg), HTN, hypothyroidism, plaque psoriasis for the past 10 years, inadequately treated with clobetasol 0.005% ointment bid prn pruritus, awaiting outpatient Dermatology Service evaluation with his Composition Board Press Operator Dr. Marco Bertrand regarding initiation of Tremfya (guselkumab), bipolar disorder type I, seizure disorder secondary to bupropion, and ongoing ETOH abuse (e.g., drinking at least 10 shots of whiskey daily for the past 2 years with last whiskey drink imbibed on 07/12/2024, 8:00pm, who was admitted to the inpatient hospitalist service @ [facility] on 07/12/2024 with the following diagnoses: #Alcohol withdrawal, improving not yet resolved Alcohol on admission 395.8 on 07/12 Initially received Valium. AWSS protocol continued. Improving but still requiring IV Ativan. No hallucinations/delirium/suggestion of DTs Continue thiamine, B12, seizure precautions #Transaminitis Suspect alcohol induced transaminitis Downtrending, not yet resolved Continue to recommend alcohol cessation, will need repeat LFTs as outpatient to ensure normalization Statin held for ongoing transaminitis #Lumbar radiculopathy Continue gabapentin #Psoriasis No acute change in management, stable #Bipolar 1 Continue Lexapro #Hypothyroidism Continue Synthroid #Hypertension Continue lisinopril/metoprolol Adequate blood pressure control #Nicotine dependence Patch ordered VTE ppx: SCDs, low risk Dispo: PCU Admission and Anticipated Discharge Date Admission Date: July 13, 2024 Subjective José Miguel seen at the bedside. He reports he had a slightly rough night, still feels tremulous, sweaty, with some palpitations. Did receive several doses of IV Ativan which seemed to help. No hallucinations. No chest pain or chest pressure. No fevers or chills. No dysuria. No cough. On reassessment is still scoring with nursing staff and is slightly tachycardic. Will continue Ativan/AVSS. Nontoxic and not in DTs but with ongoing signs of withdrawal Physical Exam Physical Exam: General: A&Ox3. NAD. Cooperative. HEENT: Atraumatic, normocephalic. Vision and hearing grossly intact Pulm: CTAB A&P. -wheezes, -rales, -rhonchi. Symmetrical chest rise. No increase in work of breathing. No respiratory distress. Cardiac: Regular, slightly tachycardic, -mrg. Radial pulses intact and symmetrical. Abdominal: Nontender, nondistended, soft. BS present. Extremities: Skin slightly warm, slightly more soft. Slight tremor although improved from prior per patient Results & Data Results & Data Vital Signs (Past 12 Hours) Vital Signs Temp Pulse Resp BP Pulse Ox O2 Del Method 07/16/24 10:08 129/105 H 07/16/24 10:00 36.9 C 94 H 20 170/126 H 95 Room Air 07/16/24 08:59 36.3 C L 96 H 20 159/128 H 99 Room Air 07/16/24 04:07 36.8 C 87 18 120/78 99 Room Air 07/16/24 03:02 36.8 C 85 18 146/112 H 100 Room Air 07/16/24 00:09 36.4 C L 87 22 154/101 H 98 Room Air PG Care Time/CCT Total # of Minutes Spent Total Time Spent with Patient: Total time spent is greater than 50% in coordination of care (as documented) at patient's floor/unit and/or counseling patient: Coding Level of Care Code 05773 SUB INP/OBS CARE 3/50MIN Diagnoses Alcohol abuse with withdrawal F10.139 Hypophosphatemia E83.39 Transaminitis R74.01
[2024-07-17] MEDS: THIAMINE HCL 100 MG TAB PO SCH (07:52)
[2024-07-17] MEDS: FOLIC ACID 1 MG TAB PO SCH (07:53)
--- NOTE | 2024-07-17 08:26 | Discharge Summary ---
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 AWSS protocol continued. Improved. No longer showing signs of alcohol withdrawal on 07/17. Some underlying baseline anxiety Continue thiamine/B12. Due to transaminitis and risk of progressively worsening alcohol withdrawal and liver injury ongoing alcohol cessation was strongly recommended and discus sed with the patient. He declined inpatient/outpatient drug and alcohol resources. Encouraged to follow-up with his PCP. He is continued on gabapentin #Anxiety/BP 1/insomnia Given reports he has significant anxiety and increased life stressors including his dad going through the lung transplant process No SI/HI. Does endorse the most difficult problem with this is sleep and waking up not able to fall back asleep He will continue to follow-up with his 2 therapist as an outpatient, and does feel comfortable continuing his Lexapro at this time. As sleep has been his biggest challenge did discuss possible options. On shared decision making he will try 3 mg of melatonin 90 minutes before bed, sleep hygiene ritual over that time, and 30 minutes before bed will take trazodone 50 mg by mouth as needed. Continue follow-up with his PCP and therapist for further. Patient a linear goal-directed thought process without wilberto or pressured speech prior to discharge #Transaminitis Suspect alcohol induced transaminitis Downtrending, not yet resolved Continue to recommend alcohol cessation, will need repeat LFTs as outpatient to ensure normalization Statin held for ongoing transaminitis Methotrexate is held until LFTs improved. Discuss resuming this at follow-up outpatient appointment #Lumbar radiculopathy Continue gabapentin #Psoriasis No acute change in management, stable Admission HPI Per Admitting Provider Pt is a 44 y/o male with PMHx of HTN, hypothyroidism, bipolar 1, alcohol use disorder, hx of seizure 2/2 Wellbutrin. He presented to the ED with request for alcohol detox. He drinks 10 shots of whiskey daily for the past 2 years, last drink 07/12 roughly 1999. Patient seen at bedside, he is anxious. He stated that he wanted to come in for alcohol detox as he is concerned with his history of seizure from being on Wellbutrin. He stated that he typically drinks 10 shots of whiskey/fireball per day for approximately 2 years. He tried to titrate off himself for starting with drinking every other day then every 2 days however began having symptoms of withdrawal. He went 72 hours without a drink yesterday and became extremely lightheaded and felt like he was about to have a seizure in [facility]. He stated he has a history of alcohol use disorder and chronic opioid use disorder and was on methadone for 10 to 12 years however has been stable for quite some time. He has been in rehab approximately 5 times, most recent roughly 2005. He endorses vomiting and diarrhea for several days. 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 Goal is to return home after detox. He has a good support system at home with his family and friends. He currently denies any lightheadedness, dizziness, nausea, diaphoresis; however appears restless and anxious on exam. he does endorse nicotine use, uses gum at home. He also endorses medical marijuana use, positive on UDS at time of admission. He denies any PMHX of DM, previous VTE, oxygen use. He has not taken his medications since yesterday. He wishes to be full code. Discharge Exam General: A&Ox3. NAD. Cooperative. Anxious affect. Thought process linear, goal directed. Speech with normal prosody. HEENT: Atraumatic, normocephalic. Vision and hearing grossly intact Pulm: CTAB A&P. -wheezes, -rales, -rhonchi. Symmetrical chest rise. No increased work of breathing. No respiratory distress. Cardiac: RRR, -mrg. Radial pulses intact and symmetrical. Abdominal: Nontender, nondistended, soft. BS present. Extremities: Skin is warm and dry, no tremors. Moving all extremities equally Discharge Plan Discharge Items Patient Disposition: Home - Self-Care Reason For Visit: ALCOHOL WITHDRAWL Discharge Diagnosis: Alcohol withdrawal Activity: Resume your previous activity Non-emergency contact: Primary Care Provider Call non-emergency contact if: you have any medication questions, your symptoms worsen and your pain is not controlled Follow-up/Referrals: Cuca Gil MD [Primary Care Provider] - 07/19/24 9:00 am (Hospital follow up on , July 19 at 9 am.) Diet: Regular Addtl Attending Provider Instructions: You were seen in the hospital for acute alcohol withdrawal. You are treated initially with Valium, and then scale doses of lorazepam as needed to control withdrawal symptoms. On day of discharge your withdrawal symptoms have greatly improved. You are not tachycardic. Your skin was warm and dry. You did continue to have some underlying anxiety however you did not show signs of ongoing withdrawal. You met with case management but declined outpatie nt/inpatient drug rehab resources. It is critically important to remain abstinent from alcohol. Continued alcohol use will lead to liver impairment, injury, or failure and alcohol withdrawal gets progressively worse each time you go through it. A follow-up appointment with your primary care provider is being scheduled, it is strongly recommended that you continue to follow-up for support for maintenance of sobriety. Please take a daily multivitamin. You have also been prescribed a daily folic acid and thiamine supplement, chronic alcohol use causes these vitamin levels to be low and can lead to diminished red blood cell production and some neurologic conditions if untreated. Your liver enzymes were elevated during admission. This was likely due to alcohol use. Your liver enzymes were downtrending but not completely normalized by time of discharge. It is recommended have a follow-up metabolic panel/liver function test with your primary care provider in approximately 1 week. The elevation of your enzymes are signs of liver damage due to alcohol, it is very important to remain abstinent of alcohol to prevent progressive injury to the liver While your liver enzymes were improving, your ALT still remained greater than 3 times normal the baseline level. As result your methotrexate and statin has been temporarily held. Please discuss these with your primary care provider prior to resuming. You will continue follow-up with your therapy resources for anxiety, and will continue Lexapro. You did note that you have difficulty with sleep. This was discussed during admission and you have been prescribed trazodone. Please take an [id number] melatonin 90 minutes before sleep, up to 3 mg may be used. 30 minutes before bed you may take 50 mg of trazodone as needed. If you develop any new or worsening symptoms including fever, chills, sweats, chest pain, chest pressure, difficulty breathing, uncontrolled nausea/vomiting, rash, wheezing, passing out or nearly passing out, bleeding, black/bloody bowel movements, or other new or concerning symptoms please call your primary care physician, or call 911 for re-evaluation in the emergency department if you are very concerned. Pending Studies at Discharge: No Stand-Alone Forms: My [facility] The Editorialist, Smoking Cessation Medications and DC Order Prescriptions: New thiamine HCl (vitamin B1) 100 mg Tablet 100 mg PO TODAY@0900 Qty: 30 0RF multivitamin with folic acid [Daily-Phu (with folic acid)] 400 mcg Tablet 1 tab PO QAM Qty: 30 0RF folic acid 1 mg Tablet 1 mg PO TODAY@0900 Qty: 30 0RF trazodone 50 mg tablet 50 mg PO HS PRN (Reason: insomnia) Qty: 30 0RF Continued escitalopram oxalate 10 mg tablet 10 mg PO QAM Qty: 90 0RF escitalopram oxalate 20 mg tablet 20 mg PO QAM Qty: 90 1RF cyclobenzaprine 10 mg tablet 10 mg PO TID PRN (Reason: muscle spasm) Qty: 270 3RF hydrocortisone 2.5 % cream 1 applic topical .COMPLEX Qty: 30 0RF Rx Instructions: 1 applic topical to areas of the face/ears twice daily x 2 weeks. multivitamin Tablet 1 tab PO DAILY levothyroxine 50 mcg tablet 50 mcg PO DAILY Qty: 90 3RF lisinopril 20 mg tablet 20 mg PO QAM Qty: 90 3RF metoprolol succinate 50 mg tablet extended release 24 hr 50 mg PO DAILY Qty: 90 3RF gabapentin 600 mg tablet 600 mg PO TID Qty: 270 3RF Rx Instructions: 1 tablet three times per day, with 300mg tablet each time, for total dose of 900mg 3X day. gabapentin 300 mg capsule 300 mg PO TID Qty: 270 3RF Rx Instructions: 1 300mg capsule with 600mg tablet three times daily = 900MG total dose 3 x day clobetasol 0.05 % ointment 1 applic topical BID Qty: 45 1RF Rx Instructions: 1 applic topical to areas of the trunk and extremities twice daily x 2-3 weeks. folic acid 1 mg tablet 1 mg PO .COMPLEX Qty: 30 0RF Rx Instructions: 1 mg orally once daily on days not taking methotrexate as directed.; Held atorvastatin 40 mg tablet 40 mg PO DAILY Qty: 90 3RF Hold Instructions: Resume on 08/01/24. methotrexate sodium 2.5 mg tablet 12.5 mg PO .COMPLEX Qty: 20 0RF Hold Instructions: Resume on 08/01/24. Rx Instructions: 12.5 mg orally once weekly as directed.; Discharge Orders: Discharge Order (Routine); Ordered 07/17/24 Ordered By: Corey Red/Other Patient Handouts: Alcohol and Older Adults, Alcoholism and Family History, Substance Abuse Rehab Program, Social Drinking vs Problem Drinking, Addiction Disease, Alcohol Addiction, Alcoholism: Getting Help, Signs of Addiction: Social Use, ED Alcohol Withdrawal Admission Data Admit Date/Time: 07/13/24 02:05 Attending Provider: Corey Truong Admit Provider: Lisa Quispe Primary Care Provider: Cuca Gil Other Providers: Marilyn Dang; Marco Bertrand Other Interventions: Discharge Summary Assessment (RN) Last Done: 07/17/24 11:33 Hospital Stay Data Consultations 07/13/24 01:15 ED Decision to Admit Stat 07/13/24 13:53 Consult Dermatology Routine Discharge Instructions Given to Patient (Per Discharging Provider) You were seen in the hospital for acute alcohol withdrawal. You are treated initially with Valium, and then scale doses of lorazepam as needed to control withdrawal symptoms. On day of discharge your withdrawal symptoms have greatly improved. You are not tachycardic. Your skin was warm and dry. You did continue to have some underlying anxiety however you did not show signs of ongoing withdrawal. You met with case management but declined outpatient/inpatient drug rehab resources. It is critically important to remain abstinent from alcohol. Continued alcohol use will lead to liver impairment, injury, or failure and alcohol withdrawal gets progressively worse each time you go through it. A follow-up appointment with your primary care provider is being scheduled, it is strongly recommended that you continue to follow-up for support for maintenance of sobriety. Please take a daily multivitamin. You have also been prescribed a daily folic acid and thiamine supplement, chronic alcohol use causes these vitamin levels to be low and can lead to diminished red blood cell production and some neurologic conditions if untreated. Your liver enzymes were elevated during admission. This was likely due to alcohol use. Your liver enzymes were downtrending but not completely normalized by time of discharge. It is recommended have a follow-up metabolic panel/liver function test with your primary care provider in approximately 1 week. The elevation of your enzymes are signs of liver damage due to alcohol, it is very important to remain abstinent of alcohol to prevent progressive injury to the liver While your liver enzymes were improving, your ALT still remained greater than 3 times normal the baseline level. As result your methotrexate and statin has been temporarily held. Please discuss these with your primary care provider prior to resuming. You will continue follow-up with your therapy resources for anxiety, and will continue Lexapro. You did note that you have difficulty with sleep. This was discussed during admission and you have been prescribed trazodone. Please take an [id number] melatonin 90 minutes before sleep, up to 3 mg may be used. 30 minutes before bed you may take 50 mg of trazodone as needed. If you develop any new or worsening symptoms including fever, chills, sweats, chest pain, chest pressure, difficulty breathing, uncontrolled nausea/vomiting, rash, wheezing, passing out or nearly passing out, bleeding, black/bloody bowel movements, or other new or concerning symptoms please call your primary care physician, or call 911 for re-evaluation in the emergency department if you are very concerned. Total Time Total Time Spent Total Time Spent (In Minutes): Time spend day of discharge 40 minutes including direct patient care, documentation, review of labs and images, and coordination of care. Coding Level of Care Code 65355 INP/OBS DISCH >30 MIN Diagnoses Alcohol abuse with withdrawal F10.139 Hypophosphatemia E83.39 Transaminitis R74.01
[2024-07-17 11:10] VITALS: PULSE 88; RESP 19; TEMP 97.5; O2SAT 95
[2024-07-17 11:34] VITALS: BP 124/92
== END 2024-07-17 12:25 | disposition home or self-care (01) | DRG 897 ==
LOC: SUATTDRO → ED 22:54 → SUATTDRO 07-13 02:05 → 2E 07-13 02:05